=== PATIENT | female | born 2000 | race Caucasian/White ===

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

== ENCOUNTER 2018-01-28 22:22 | Emergency (ER) | payer OTHER ==
[2018-01-28] MEDS ORDERED: Sodium Chloride 0.9% 1000 ML 1,000 ML IV STA (22:59)
[2018-01-28] MEDS ORDERED: Reglan 10 MG/2 ML IV ONE (23:05)
[2018-01-28] MEDS ORDERED: Reglan 10 MG/2 ML ONE (23:08)
[2018-01-28] MEDS ORDERED: Sodium Chloride 0.9% 1000 ML 1,000 ML ONE (23:09)
--- NOTE | 2018-01-28 23:11 | ERPHSYRPT ---
- History of Present Illness Time Seen by Provider: 01/28/18 22:50 Source: patient Exam Limitations: no limitations Patient Subjective Stated Complaint: vomiting "16 times since 1 o'clock." Triage Nursing Assessment: pt is alert and oriented. pt is ambulatory. pt skin is pink, warm and elastic. mucous membranes are pink and moist. pt is c/o dizziness and a slight headache. bowel sounds present x4. pt lung sounds clear. Physician History: Pt has been vomiting since yesterday, she is about 7 weeks , denies abdominal or pelvic pain, no vaginal bleeding, discharge, no urinary complaints , diarrhea or fever. She has a six months old child, denies . She had a OB US on 01/19/18, reporting 6 weeks 4 days normal IU . Timing/Duration: yesterday Activites at Onset: none Quality: other (denies) Pain Radiation: none Severity of Pain-Max: none Severity of Pain-Current: none Prior abdominal problems: none Modifying Factors: Improves With: nothing Associated Symptoms: nausea, vomiting Allergies/Adverse Reactions: paroxetine [From Paxil] Allergy (Severe, Verified 07/25/17 09:44) "extreme anger" cephalexin monohydrate [From Keflex] Allergy (Intermediate, Verified 07/25/17 09 :44) Hives guaifenesin [From Mucinex] Allergy (Intermediate, Verified 07/25/17 09:44) Hives lisdexamfetamine [From Vyvanse] Adverse Reaction (Unknown, Verified 07/25/17 09: 44) "irritability and constantly clearing throat until it would swell" methylphenidate [From Concerta] Adverse Reaction (Unknown, Verified 07/25/17 09: 44) "irritability and constantly clearing throat until it would swell" Hx Tetanus, Diphtheria Vaccination/Date Given: Yes Hx Influenza Vaccination/Date Given: No Hx Pneumococcal Vaccination/Date Given: No - Review of Systems Constitutional: No Symptoms Abdominal/Gastrointestinal: Nausea, Vomiting Neurological: Headache All Other Systems: Reviewed and Negative - Past Medical History Pertinent Past Medical History: Yes Neurological History: Other ENT History: No Pertinent History Cardiac History: No Pertinent History Respiratory History: No Pertinent History Endocrine Medical History: No Pertinent History Musculoskeletal History: No Pertinent History GI Medical History: No Pertinent History History: No Pertinent History Psycho-Social History: Anxiety, Depression, Panic Disorder Female Reproductive Disorders: No Pertinent History 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, 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 - Past Surgical History Past Surgical History: Yes Neuro Surgical History: No Pertinent History Cardiac: No Pertinent History Respiratory: No Pertinent History Gastrointestinal: No Pertinent History Genitourinary: No Pertinent History Musculoskeletal: No Pertinent History Female Surgical History: Other Other Surgical History: vaginal laproscopy - Social History Smoking Status: Former smoker How long have you smoked: 2yrs Exposure to second hand smoke: Yes Drug Use: none Patient Lives Alone: No - Female History Hx Last Menstrual Period: 11/20/17 Hx Now: Yes Expected Date of Delivery: 09/10/18 - Nursing Vital Signs Nursing Vital Signs: Initial Vital Signs Temperature 97.9 F 01/28/18 22:22 Pulse Rate 83 01/28/18 22:22 Respiratory Rate 16 01/28/18 22:22 Blood Pressure 136/75 01/28/18 22:22 O2 Sat by Pulse Oximetry 98 01/28/18 22:22 Pain Scale Pain Intensity 6 - Physical Exam General Appearance: no apparent distress Eye Exam: eyes nml inspection Ears, Nose, Throat Exam: normal ENT inspection Neck Exam: normal inspection, non-tender, supple Respiratory Exam: normal breath sounds, chest tenderness, lungs clear, airway intact Cardiovascular Exam: regular rate/rhythm, normal heart sounds, normal peripheral pulses, No murmur Gastrointestinal/Abdomen Exam: soft, normal bowel sounds, No tenderness, No distention, No mass, No guarding Pelvic Exam: not done Back Exam: normal inspection, No CVA tenderness Extremity Exam: normal inspection Neurologic Exam: alert, oriented x 3, cooperative, normal mood/affect Skin Exam: normal color, warm, dry, No rash Lymphatic Exam: No adenopathy SpO2 Interpretation: normal SpO2: 98 Oxygen Delivery: Room Air - Course Nursing assessment & vital signs reviewed: Yes Ordered Tests: Active Orders 24 hr Category Date Time Status IV Insertion STAT Care 01/28/18 22:38 Active NPO (ED) STAT Care 01/28/18 22:59 Active CBC W DIFF Stat Lab 01/28/18 22:30 Completed CMP Stat Lab 01/28/18 22:30 Completed CULTURE,URINE Stat Lab 01/28/18 22:30 Received HCG, Quantitative (Inhouse) Stat Lab 01/28/18 22:30 Received LIPASE Stat Lab 01/28/18 22:30 Completed UA W/ MICROSCOPIC Stat Lab 01/28/18 22:30 Completed Urine Triage Profile Stat Lab 01/28/18 22:30 Completed Medication Summary Discontinued Medications Generic Name Dose Route Start Last Admin Trade Name Marcelo PRN Reason Stop Dose Admin Sodium Chloride 1,000 mls @ 999 mls/hr 01/28/18 22:59 01/28/18 23:11 Sodium Chloride 0.9% 1000 Ml IV 01/28/18 23:59 999 mls/hr .Q1H1M STA Administration Sodium Chloride Confirm 01/28/18 23:09 Sodium Chloride 0.9% 1000 Ml Administered 01/28/18 23:10 Dose 1,000 mls @ ud .ROUTE .STK-MED ONE Metoclopramide HCl 10 mg 01/28/18 23:05 01/28/18 23:11 Reglan 10 Mg/2 Ml IV 01/28/18 23:06 10 mg STAT ONE Administration Metoclopramide HCl Confirm 01/28/18 23:08 Reglan 10 Mg/2 Ml Administered 01/28/18 23:09 Dose 10 mg .ROUTE .STK-MED ONE Nitrofurantoin Macrocrystals 100 mg 01/29/18 01:04 01/29/18 01:08 Macrobid 100mg Capsule PO 01/29/18 01:05 100 mg STAT ONE Administration Nitrofurantoin Macrocrystals Confirm 01/29/18 01:07 Macrobid 100mg Capsule Administered 01/29/18 01:08 Dose 100 mg .ROUTE .STK-MED ONE Lab/Rad Data: Laboratory Result Diagrams 01/28/18 22:30 01/28/18 22:30 Laboratory Results 01/28/18 01/28/18 01/28/18 Range/Units 22:30 22:30 22:30 WBC (4.0-10.5) K/mm3 RBC (4.1-5.4) M/mm3 Hgb (12.0-16.0) gm/dl Hct (35-47) % MCV (78-100) fl MCH (26-32) pg MCHC (32-36) g/dl RDW (11.5-14.0) % Plt Count (150-450) K/mm3 MPV (6-9.5) fl Gran % (36.0-66.0) % Eos # (Auto) (0-0.5) Absolute Lymphs (auto) (1.0-4.6) Absolute Monos (auto) (0.0-1.3) Lymphocytes % (24.0-44.0) % Monocytes % (0.0-12.0) % Eosinophils % (0.00-5.0) % Basophils % (0.0-0.4) % Absolute Granulocytes (1.4-6.9) Basophils # (0-0.4) Sodium 139 (137-145) mmol/L Potassium 3.5 (3.5-5.1) mmol/L Chloride 103 (98-107) mmol/L Carbon Dioxide 23 (22-30) mmol/L Anion Gap 16.3 H (5-15) MEQ/L BUN 10 (7-17) mg/dL Creatinine 0.59 (0.52-1.04) mg/dL Estimated GFR > 60.0 ML/MIN Glucose 82 (74-106) mg/dL Calcium 9.7 (8.4-10.2) mg/dL Total Bilirubin 0.70 (0.2-1.3) mg/dL AST 18 (14-36) U/L ALT 15 (0-35) U/L Alkaline Phosphatase 50 (38-126) U/L Serum Total Protein 7.3 (6.3-8.2) g/dL Albumin 4.6 (3.5-5.0) g/dL Lipase 124 (23-300) U/L Ur Collection Type VOID Urine Color YELLOW (YELLOW) Urine Appearance CLOUDY (CLEAR) Urine pH 5.0 (5-6) Ur Specific [place] 1.025 (1.005-1.025) Urine Protein NEGATIVE (Negative) Urine Ketones SMALL (NEGATIVE) Urine Blood 50 (0-5) Remberto/ul Urine Nitrite NEGATIVE (NEGATIVE) Urine Bilirubin NEGATIVE (NEGATIVE) Urine Urobilinogen NORMAL (0-1) mg/dL Ur Leukocyte Esterase 1+ (NEGATIVE) Urine Microscopic RBC 10-15 (0-2) /HPF Urine Microscopic WBC 10-15 (0-5) /HPF Ur Epithelial Cells MANY (FEW) /HPF Urine Bacteria MANY (NEGATIVE) /HPF Urine Mucus MANY (NEGATIVE) /HPF Urine Culture Reflexed YES (NO) Urine Glucose 250 (NEGATIVE) mg/dL Urine Opiates Level NEGATIVE (NEGATIVE) Ur Methadone NEGATIVE (NEGATIVE) Urine Barbiturates NEGATIVE (NEGATIVE) Ur Phencyclidine (PCP) NEGATIVE (NEGATIVE) Urine Amphetamine NEGATIVE (NEGATIVE) U Benzodiazepine Level NEGATIVE (NEGATIVE) Urine Cocaine NEGATIVE (NEGATIVE) Urine Marijuana (THC) NEGATIVE (NEGATIVE) Specimen Received 01/28/18 2330 01/28/18 Range/Units 22:30 WBC 9.3 (4.0-10.5) K/mm3 RBC 4.53 (4.1-5.4) M/mm3 Hgb 14.0 (12.0-16.0) gm/dl Hct 40.6 (35-47) % MCV 89.6 (78-100) fl MCH 30.9 (26-32) pg MCHC 34.5 (32-36) g/dl RDW 12.7 (11.5-14.0) % Plt Count 234 (150-450) K/mm3 MPV 10.6 H (6-9.5) fl Gran % 61.8 (36.0-66.0) % Eos # (Auto) 0.02 (0-0.5) Absolute Lymphs (auto) 2.74 (1.0-4.6) Absolute Monos (auto) 0.77 (0.0-1.3) Lymphocytes % 29.6 (24.0-44.0) % Monocytes % 8.3 (0.0-12.0) % Eosinophils % 0.2 (0.00-5.0) % Basophils % 0.1 (0.0-0.4) % Absolute Granulocytes 5.73 (1.4-6.9) Basophils # 0.01 (0-0.4) Sodium (137-145) mmol/L Potassium (3.5-5.1) mmol/L Chloride (98-107) mmol/L Carbon Dioxide (22-30) mmol/L Anion Gap (5-15) MEQ/L BUN (7-17) mg/dL Creatinine (0.52-1.04) mg/dL Estimated GFR ML/MIN Glucose (74-106) mg/dL Calcium (8.4-10.2) mg/dL Total Bilirubin (0.2-1.3) mg/dL AST (14-36) U/L ALT (0-35) U/L Alkaline Phosphatase (38-126) U/L Serum Total Protein (6.3-8.2) g/dL Albumin (3.5-5.0) g/dL Lipase (23-300) U/L Ur Collection Type Urine Color (YELLOW) Urine Appearance (CLEAR) Urine pH (5-6) Ur Specific Be[place] (1.005-1.025) Urine Protein (Negative) Urine Ketones (NEGATIVE) Urine Blood (0-5) Remberto/ul Urine Nitrite (NEGATIVE) Urine Bilirubin (NEGATIVE) Urine Urobilinogen (0-1) mg/dL Ur Leukocyte Esterase (NEGATIVE) Urine Microscopic RBC (0-2) /HPF Urine Microscopic WBC (0-5) /HPF Ur Epithelial Cells (FEW) /HPF Urine Bacteria (NEGATIVE) /HPF Urine Mucus (NEGATIVE) /HPF Urine Culture Reflexed (NO) Urine Glucose (NEGATIVE) mg/dL Urine Opiates Level (NEGATIVE) Ur Methadone (NEGATIVE) Urine Barbiturates (NEGATIVE) Ur Phencyclidine (PCP) (NEGATIVE) Urine Amphetamine (NEGATIVE) U Benzodiazepine Level (NEGATIVE) Urine Cocaine (NEGATIVE) Urine Marijuana (THC) (NEGATIVE) Specimen Received - Progress Progress: improved Air Movement: good Progress Note: 01/29/18 01:14 Pt states, feels much better, nausea resolved, denies any pain, afebrile, and stable. 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 Blood Culture(s) Obtained: No Antibiotics given: Yes Counseled pt/family regarding: lab results, diagnosis, need for follow-up - Departure Time of Disposition: 01:16 Departure Disposition: Home Clinical Impression: Hyperemesis gravidarum UTI (urinary tract infection) Qualifiers: Urinary tract infection type: site unspecified Hematuria presence: without hematuria Qualified Code(s): N39.0 - Urinary tract infection, site not specified Condition: Stable Critical Care Time: No Referrals: LEEANN SOSA MD [Primary Care Provider] - Instructions: Vomiting -- Adult, Urinary Tract Infection, Adult (DC), Hyperemesis Gravidarum Additional Instructions: Rest x 2-3 days, drink plenty of fluids, return if severe pain, vomiting, bleeding, fever> 102 F! Prescriptions: Metoclopramide HCl 10 mg [Reglan 10 MG] 10 mg PO TID PRN #10 tablet PRN Reason: Nausea/Vomiting Nitrofurantoin Monohyd/M-Cryst [Macrobid 100 mg Capsule] 100 mg PO BID 7 Days # 14 capsule
[2018-01-28 23:50] LABS: BASOPHIL % 0.1 % (0.0-0.4); Basophil (Absolute #) 0.01 (0-0.4); Eosinophil % 0.2 % (0.00-5.0); Eosinophil (Absolute #) 0.02 (0-0.5); Granulocyte Absolute (ANC) 5.73 (1.4-6.9); Granulocytes % 61.8 % (36.0-66.0); Hematocrit 40.6 % (35-47); Lymphocyte (Absolute #) 2.74 (1.0-4.6); Lymphocytes % 29.6 % (24.0-44.0); Mean Cell Volume 89.6 fl (78-100); Mean Corpuscular Hemoglobin 30.9 pg (26-32); Mean Corpuscular Hgb Concent. 34.5 g/dl (32-36); Mean Platelet Volume 10.6 fl (6-9.5); Monocyte (Absolute #) 0.77 (0.0-1.3); Monocytes % 8.3 % (0.0-12.0); Platelet Count 234 K/mm3 (150-450); Red Blood Count 4.53 M/mm3 (4.1-5.4); Red Cell Distribution Width 12.7 % (11.5-14.0); White Blood Count 9.3 K/mm3 (4.0-10.5)
[2018-01-28 23:55] LABS: ALBUMIN 4.6 g/dL (3.5-5.0); ALKALINE PHOSPHATASE 50 U/L (38-126); ANION GAP 16.3 MEQ/L (5-15); BLOOD UREA NITROGEN 10 mg/dL (7-17); CHLORIDE 103 mmol/L (98-107); Calcium 9.7 mg/dL (8.4-10.2); Carbon Dioxide 23 mmol/L (22-30); Creatinine 1 0.59 mg/dL (0.52-1.04); Glucose 82 mg/dL (74-106); LIPASE 124 U/L (23-300); Potassium 3.5 mmol/L (3.5-5.1); SGOT/AST 18 U/L (14-36); SGPT/ALT 15 U/L (0-35); SODIUM 139 mmol/L (137-145); Total Protein 7.3 g/dL (6.3-8.2)
[2018-01-29 00:11] LABS: Appearance CLOUDY (CLEAR); Bilirubin NEGATIVE (NEGATIVE); Blood 50 Ery/ul (0-5); Glucose 250 mg/dL (NEGATIVE); Ketones SMALL (NEGATIVE); Leukocyte Esterase 1+ (NEGATIVE); Nitrite NEGATIVE (NEGATIVE); Protein,Urine Dip NEGATIVE (Negative); Specific Gravity 1.025 (1.005-1.025); Urobilinogen NORMAL mg/dL (0-1)
[2018-01-29 00:12] LABS: Amphetamine,Urine NEGATIVE (NEGATIVE); Bacteria MANY /HPF (NEGATIVE); Barbiturate,Urine NEGATIVE (NEGATIVE); Benzodiazepine,Urine NEGATIVE (NEGATIVE); Cocaine,Urine NEGATIVE (NEGATIVE); Epithelial Cells MANY /HPF (FEW); Methadone,Urine NEGATIVE (NEGATIVE); Mucus MANY /HPF (NEGATIVE); Opiate,Urine NEGATIVE (NEGATIVE); PCP,Urine NEGATIVE (NEGATIVE); THC,Urine NEGATIVE (NEGATIVE)
[2018-01-29] MEDS ORDERED: Macrobid 100MG Capsule PO ONE (01:04)
[2018-01-29] MEDS ORDERED: Macrobid 100MG Capsule ONE (01:07)
[2018-01-29 01:15] VITALS: BP 121/66; PULSE 70
[2018-01-29 01:20] VITALS: O2SAT 98
== END 2018-01-29 01:34 | disposition home or self-care (01) ==
LOC: ED 22:22
DX: O21.0 Mild hyperemesis gravidarum (principal); Z3A.01 Less than 8 weeks gestation of pregnancy; O23.41 Unspecified infection of urinary tract in pregnancy, first trimester
CPT/HCPCS: 36000; 36415; 80053; 80307; 81000; 81002; 83690; 84702; 85025; 87086; 96360; 96374; 99284; A9270-GY

== ENCOUNTER 2018-04-05 19:06 | Emergency (ER) | payer OTHER ==
[2018-04-05 19:29] VITALS: PULSE 100; O2SAT 96
[2018-04-05 20:13] LABS: Appearance CLEAR (CLEAR); Bilirubin NEGATIVE (NEGATIVE); Glucose NEGATIVE (NEGATIVE); Ketones NEGATIVE (NEGATIVE); Leukocyte Esterase 2+ (NEGATIVE); Nitrite NEGATIVE (NEGATIVE); Protein,Urine Dip NEGATIVE (Negative); Specific Gravity 1.005 (1.005-1.025); Urobilinogen NORMAL mg/dL (0-1)
[2018-04-05 20:14] LABS: Blood TRACE NON-HEM Ery/ul (0-5)
[2018-04-05 20:15] LABS: Bacteria FEW /HPF (NEGATIVE)
[2018-04-05 20:31] LABS: BASOPHIL % 0.2 % (0.0-0.4); Basophil (Absolute #) 0.02 (0-0.4); Eosinophil % 0.9 % (0.00-5.0); Eosinophil (Absolute #) 0.07 (0-0.5); Granulocyte Absolute (ANC) 4.83 (1.4-6.9); Granulocytes % 59.6 % (36.0-66.0); Hematocrit 36.8 % (35-47); Hemoglobin 12.5 gm/dl (12.0-16.0); Lymphocyte (Absolute #) 2.46 (1.0-4.6); Lymphocytes % 30.4 % (24.0-44.0); Mean Cell Volume 92.7 fl (78-100); Mean Platelet Volume 9.5 fl (6-9.5); Monocyte (Absolute #) 0.72 (0.0-1.3); Monocytes % 8.9 % (0.0-12.0); Platelet Count 269 K/mm3 (150-450); Red Blood Count 3.97 M/mm3 (4.1-5.4); Red Cell Distribution Width 12.9 % (11.5-14.0); White Blood Count 8.1 K/mm3 (4.0-10.5)
[2018-04-05 20:35] VITALS: BP 119/78
[2018-04-05 20:54] LABS: ALBUMIN 4.5 g/dL (3.5-5.0); ALKALINE PHOSPHATASE 51 U/L (38-126); ANION GAP 14.4 MEQ/L (5-15); BLOOD UREA NITROGEN 12 mg/dL (7-17); CHLORIDE 105 mmol/L (98-107); Calcium 9.5 mg/dL (8.4-10.2); Carbon Dioxide 24 mmol/L (22-30); Glucose 61 mg/dL (74-106); Potassium 3.6 mmol/L (3.5-5.1); SGOT/AST 22 U/L (14-36); SGPT/ALT 15 U/L (0-35); SODIUM 139 mmol/L (137-145); Total Protein 7.6 g/dL (6.3-8.2)
[2018-04-05 20:58] LABS: Mean Corpuscular Hemoglobin 31.4 pg (26-32)
--- NOTE | 2018-04-05 21:42 | ERPHSYRPT ---
- History of Present Illness Time Seen by Provider: 04/05/18 19:30 Source: patient Exam Limitations: no limitations Patient Subjective Stated Complaint: pt states that she is 18 weeks and today she noticed a small amount of dark red spotting starting at 1730. she states that she had some lower abdomenal pain starting at about 1400 today. pt states that she has had some nausea and vomiting this past week. pt states that she is having painful contractions every 10-15 minutes. pt states that she did have a fever yesterday of 100 degrees. pt denies any pain or difficulty urinating. Triage Nursing Assessment: see above Physician History: 17 y/o a 1 white female who is 18 weeks presents with vaginal spotting and suprapubic cramping. pt told me she has not had an ultrasound this . she told the nurse she has. i had the nurse clarify with patient. pt told rn she has not had one for this . pt denies n/v/d. 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 fht per ob rn today in er 144. Timing/Duration: today Activites at Onset: none Quality: pressure, tightness Onset Location: suprapubic Pain Radiation: none Severity of Pain-Max: mild Severity of Pain-Current: mild Prior abdominal problems: none Sexual intercourse history: non-contributory Modifying Factors: Improves With: nothing Associated Symptoms: , No abdominal pain, No fever, No chills, No nausea , No vomiting, No urinary frequency Allergies/Adverse Reactions: paroxetine [From Paxil] Allergy (Severe, Verified 07/25/17 09:44) "extreme anger" cephalexin monohydrate [From Keflex] Allergy (Intermediate, Verified 07/25/17 09 :44) Hives guaifenesin [From Mucinex] Allergy (Intermediate, Verified 07/25/17 09:44) Hives lisdexamfetamine [From Vyvanse] Adverse Reaction (Unknown, Verified 07/25/17 09: 44) "irritability and constantly clearing throat until it would swell" methylphenidate [From Concerta] Adverse Reaction (Unknown, Verified 07/25/17 09: 44) "irritability and constantly clearing throat until it would swell" Hx Tetanus, Diphtheria Vaccination/Date Given: Yes Hx Influenza Vaccination/Date Given: No Hx Pneumococcal Vaccination/Date Given: No - Review of Systems Constitutional: No Symptoms, No Fever, No Chills Eyes: No Symptoms Ears, Nose, & Throat: No Symptoms, No Ear Pain Respiratory: No Symptoms, No Cough, No Dyspnea, No Stridor, No Wheezing Cardiac: No Symptoms, No Chest Pain Abdominal/Gastrointestinal: No Symptoms, Abdominal Pain (suprapubic cramping), Nausea, Vomiting, Diarrhea Genitourinary Symptoms: No Symptoms, No Dysuria, No Frequency, No Hematuria Musculoskeletal: No Symptoms Skin: No Symptoms Neurological: No Symptoms Psychological: No Symptoms Endocrine: No Symptoms Hematologic/Lymphatic: No Symptoms Immunological/Allergic: No Symptoms All Other Systems: Reviewed and Negative - Past Medical History Pertinent Past Medical History: Yes Neurological History: Other ENT History: No Pertinent History Cardiac History: No Pertinent History Respiratory History: No Pertinent History Endocrine Medical History: No Pertinent History Musculoskeletal History: No Pertinent History GI Medical History: No Pertinent History History: No Pertinent History Psycho-Social History: Anxiety, Depression, Panic Disorder Female Reproductive Disorders: No Pertinent History Other Medical History: 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, 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 - Past Surgical History Past Surgical History: Yes Neuro Surgical History: No Pertinent History Cardiac: No Pertinent History Respiratory: No Pertinent History Gastrointestinal: No Pertinent History Genitourinary: No Pertinent History Musculoskeletal: No Pertinent History Female Surgical History: Other Other Surgical History: vaginal laproscopy - Social History Smoking Status: Former smoker How long have you smoked: 2yrs Exposure to second hand smoke: Yes Drug Use: none Patient Lives Alone: No - Female History Hx Now: Yes Expected Date of Delivery: 09/09/18 - Nursing Vital Signs Nursing Vital Signs: Initial Vital Signs Pulse Rate 100 H 04/05/18 19:07 Respiratory Rate 18 04/05/18 19:07 Blood Pressure 134/69 04/05/18 19:07 O2 Sat by Pulse Oximetry 96 04/05/18 19:07 Pain Scale Pain Intensity 7 - Physical Exam General Appearance: no apparent distress, alert, anxiety Eye Exam: PERRL/EOMI, eyes nml inspection Ears, Nose, Throat Exam: normal ENT inspection Neck Exam: normal inspection, non-tender, supple, full range of motion Respiratory Exam: normal breath sounds, lungs clear, airway intact, No chest tenderness, No respiratory distress Cardiovascular Exam: regular rate/rhythm, normal heart sounds, normal peripheral pulses Pelvic Exam: not done Rectal Exam: deferred Extremity Exam: normal inspection Neurologic Exam: alert, oriented x 3, cooperative, ceo and president II-XII nml as tested, normal mood/affect, nml cerebellar function Skin Exam: normal color, warm, dry Lymphatic Exam: No adenopathy SpO2 Interpretation: normal SpO2: 96 Oxygen Delivery: Room Air - Course Nursing assessment & vital signs reviewed: Yes Ordered Tests: Active Orders 24 hr Category Date Time Status OB >14 WKS 1st GESTATION [US] Stat Exams 04/05/18 21:28 Taken CBC W DIFF Stat Lab 04/05/18 19:53 Completed CMP Stat Lab 04/05/18 19:53 Completed CULTURE,URINE Stat Lab 04/05/18 20:00 Received HCG, Quantitative (Inhouse) Stat Lab 04/05/18 19:54 Ordered UA W/ MICROSCOPIC Stat Lab 04/05/18 20:00 Completed Lab/Rad Data: Laboratory Result Diagrams 04/05/18 19:53 04/05/18 19:53 Laboratory Results 04/05/18 04/05/18 04/05/18 Range/Units 20:00 19:53 19:53 WBC 8.1 (4.0-10.5) K/mm3 RBC 3.97 L (4.1-5.4) M/mm3 Hgb 12.5 (12.0-16.0) gm/dl Hct 36.8 (35-47) % MCV 92.7 (78-100) fl MCH 31.4 (26-32) pg MCHC 34.0 (32-36) g/dl RDW 12.9 (11.5-14.0) % Plt Count 269 (150-450) K/mm3 MPV 9.5 (6-9.5) fl Gran % 59.6 (36.0-66.0) % Eos # (Auto) 0.07 (0-0.5) Absolute Lymphs (auto) 2.46 (1.0-4.6) Absolute Monos (auto) 0.72 (0.0-1.3) Lymphocytes % 30.4 (24.0-44.0) % Monocytes % 8.9 (0.0-12.0) % Eosinophils % 0.9 (0.00-5.0) % Basophils % 0.2 (0.0-0.4) % Absolute Granulocytes 4.83 (1.4-6.9) Basophils # 0.02 (0-0.4) Sodium 139 (137-145) mmol/L Potassium 3.6 (3.5-5.1) mmol/L Chloride 105 (98-107) mmol/L Carbon Dioxide 24 (22-30) mmol/L Anion Gap 14.4 (5-15) MEQ/L BUN 12 (7-17) mg/dL Creatinine 0.50 L (0.52-1.04) mg/dL Estimated GFR > 60.0 ML/MIN Glucose 61 L (74-106) mg/dL Calcium 9.5 (8.4-10.2) mg/dL Total Bilirubin 0.30 (0.2-1.3) mg/dL AST 22 (14-36) U/L ALT 15 (0-35) U/L Alkaline Phosphatase 51 (38-126) U/L Serum Total Protein 7.6 (6.3-8.2) g/dL Albumin 4.5 (3.5-5.0) g/dL Ur Collection Type VOID Urine Color LT.YELLOW (YELLOW) Urine Appearance CLEAR (CLEAR) Urine pH 7.0 (5-6) Ur Specific [place] 1.005 (1.005-1.025) Urine Protein NEGATIVE (Negative) Urine Ketones NEGATIVE (NEGATIVE) Urine Blood TRACE NON-HEM (0-5) Remberto/ul Urine Nitrite NEGATIVE (NEGATIVE) Urine Bilirubin NEGATIVE (NEGATIVE) Urine Urobilinogen NORMAL (0-1) mg/dL Ur Leukocyte Esterase 2+ (NEGATIVE) Urine Microscopic RBC 2-5 (0-2) /HPF Urine Microscopic WBC 5-10 (0-5) /HPF Urine Bacteria FEW (NEGATIVE) /HPF Urine Culture Reflexed YES (NO) Urine Glucose NEGATIVE (NEGATIVE) mg/dL Specimen Received 04/05 2000 - Progress Progress: unchanged Air Movement: fair, good Progress Note: 04/05/18 21:44 u/s tech performed ultrasound. tech informed me no abnormalities. she also told me pt had u/s reports for this 12/27, 01/26, 02/26 and now today. i confronted pt with information. she stated she did not remember. i told her it was important not to give false and misleading information to her doctors to obtain treatment or unecessary studies she desires. she was upset and wants to be discharged. Blood Culture(s) Obtained: No Antibiotics given: No Counseled pt/family regarding: lab results, diagnosis, need for follow-up, rad results - Departure Time of Disposition: 21:48 Departure Disposition: Home Clinical Impression: , Vaginal bleeding before 22 weeks gestation Condition: Stable Critical Care Time: No Referrals: LEEANN SOSA MD [Primary Care Provider] - Additional Instructions: follow up with chimney sweeper tomorrow for further management
--- NOTE | 2018-04-06 08:45 | XRAY ---
Indication: Spotting. 2-dimensional OB ultrasound performed. Comparison: February 14, 2018. Again there is a single viable intrauterine currently in oblique lie. Normal four-chamber heart with heart rate 153 BPM. Visualized kidneys unremarkable. Posterior placenta without abruption/previa. BPD measures 4.09 cm corresponding to 18 weeks 3 days. HC measures 15.09 cm corresponding to 18 weeks 1 day. AC measures 12.74 cm corresponding to 18 weeks 2 days. FL measures 2.65 cm corresponding to 18 weeks 0 days. Impression: Again single viable intrauterine with mean gestational age 18 weeks 2 days. Normal progression of . No new/acute findings. Comment: Preliminary report was given following the exam.
== END 2018-04-05 22:21 | disposition home or self-care (01) ==
LOC: ED 19:06
DX: O46.92 Antepartum hemorrhage, unspecified, second trimester (principal); Z3A.22 22 weeks gestation of pregnancy
CPT/HCPCS: 36415; 76805; 80053; 81000; 81003; 84702; 85025; 87086; 99283

== ENCOUNTER 2018-04-23 09:13 | Emergency (ER) | payer OTHER ==
--- NOTE | 2018-04-23 09:23 | ERPHSYRPT ---
- History of Present Illness Time Seen by Provider: 04/23/18 09:22 Source: patient Physician History: 17 Y/O WHITE FEMALE PRESENTS WITH MOUTH PAIN. PT STATES SHE HAS A DENTIST APPT AT 1545 TODAY. DENTIST OFFICE TOLD HER TO COME TO THE ER TO SEE IF SHE HAS AN INFECTION. MY EXPERIENCE WITH THIS PT IS SHE DOES NOT GIVE COMPLETE HONEST ANSWERS. I MADE SURE SHE WAS GOING TO BE TRUTHFUL WITH ME THIS VISIT. SHE SAID SHE WOULD LONG I WASNT GOING TO GIVE HER AN ATTITUDE. I ASKED HER WHAT HER ALLERGIES WERE AND SHE STATED I SHOULD ALREADY KNOW THAT. I TOLD PT I NEED TO KNOW IF, SINCE HER LAST VISIT THERE ARE ANY NEW ALLERGIES, SHE TOLD ME TO LOOK ON THE CHART. SHE THEN REFUSED ME EXAMINING/EVALUATING HER. Severity: mild ENT Location: dental Allergies/Adverse Reactions: paroxetine [From Paxil] Allergy (Severe, Verified 04/23/18 09:26) "extreme anger" cephalexin monohydrate [From Keflex] Allergy (Intermediate, Verified 04/23/18 09 :26) Hives guaifenesin [From Mucinex] Allergy (Intermediate, Verified 04/23/18 09:26) Hives lisdexamfetamine [From Vyvanse] Adverse Reaction (Unknown, Verified 04/23/18 09: 26) "irritability and constantly clearing throat until it would swell" methylphenidate [From Concerta] Adverse Reaction (Unknown, Verified 04/23/18 09: 26) "irritability and constantly clearing throat until it would swell" Home Medications: No Reportable Medications [No Reported Medications] 04/23/18 [History] Hx Tetanus, Diphtheria Vaccination/Date Given: Yes Hx Influenza Vaccination/Date Given: No Hx Pneumococcal Vaccination/Date Given: No - Review of Systems Constitutional: No Symptoms Eyes: No Symptoms Ears, Nose, & Throat: Other (DENTAL) Respiratory: No Symptoms Cardiac: No Symptoms Abdominal/Gastrointestinal: No Symptoms Genitourinary Symptoms: No Symptoms Musculoskeletal: No Symptoms Skin: No Symptoms Neurological: No Symptoms Psychological: No Symptoms Endocrine: No Symptoms Hematologic/Lymphatic: No Symptoms Immunological/Allergic: No Symptoms All Other Systems: Reviewed and Negative - Past Medical History Pertinent Past Medical History: Yes Neurological History: Other ENT History: No Pertinent History Cardiac History: No Pertinent History Respiratory History: No Pertinent History Endocrine Medical History: No Pertinent History Musculoskeletal History: No Pertinent History GI Medical History: No Pertinent History History: No Pertinent History Psycho-Social History: Anxiety, Depression, Panic Disorder Female Reproductive Disorders: No Pertinent History Other Medical History: 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, 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 - Past Surgical History Past Surgical History: Yes Neuro Surgical History: No Pertinent History Cardiac: No Pertinent History Respiratory: No Pertinent History Gastrointestinal: No Pertinent History Genitourinary: No Pertinent History Musculoskeletal: No Pertinent History Female Surgical History: Other Other Surgical History: vaginal laproscopy - Social History Smoking Status: Former smoker How long have you smoked: 2yrs Exposure to second hand smoke: Yes Drug Use: none Patient Lives Alone: No - Nursing Vital Signs Nursing Vital Signs: Initial Vital Signs Temperature 98.0 F 04/23/18 09:20 Pulse Rate 110 H 04/23/18 09:20 Respiratory Rate 16 04/23/18 09:20 Blood Pressure 122/65 04/23/18 09:20 O2 Sat by Pulse Oximetry 98 04/23/18 09:20 Pain Scale Pain Intensity 9 - Physical Exam General Appearance: no apparent distress - Course Nursing assessment & vital signs reviewed: Yes - Progress Progress: unchanged Progress Note: 04/23/18 09:47 PT REFUSING ME TO PERFORM AN EXAMINATION. PT IS MEDICALLY STABLE. SHE HAD A MEDICAL SCREENING EXAM AND PT DOES NOT HAVE AN EMERGENCY ISSUE. IN ADDITION, SHE HAS A DENTIST APPT IN 6 HOURS Counseled pt/family regarding: need for follow-up - Departure Time of Disposition: 09:48 Departure Disposition: Home Clinical Impression: Encounter for medical screening examination, Pain, dental Condition: Stable Critical Care Time: No Referrals: LEEANN SOSA MD [Primary Care Provider] - Additional Instructions: KEEP YOUR DENTIST APPOINTMENT AT 1545 TODAY.
[2018-04-23 10:07] VITALS: BP 129/91; PULSE 105; O2SAT 95
== END 2018-04-23 09:50 | disposition home or self-care (01) ==
LOC: ED 09:13
DX: Z13.89 Encounter for screening for other disorder (principal); K08.89 Other specified disorders of teeth and supporting structures
CPT/HCPCS: 99283

== ENCOUNTER 2018-05-23 12:42 | Observation (INO) | payer OTHER ==
[2018-05-23 13:57] LABS: Amphetamine,Urine NEGATIVE (NEGATIVE); Barbiturate,Urine NEGATIVE (NEGATIVE); Benzodiazepine,Urine NEGATIVE (NEGATIVE); Cocaine,Urine NEGATIVE (NEGATIVE); Methadone,Urine NEGATIVE (NEGATIVE); Opiate,Urine NEGATIVE (NEGATIVE); PCP,Urine NEGATIVE (NEGATIVE); THC,Urine NEGATIVE (NEGATIVE)
[2018-05-23 14:31] LABS: Appearance CLEAR (CLEAR); Bacteria FEW /HPF (NEGATIVE); Bilirubin NEGATIVE (NEGATIVE); Blood NEGATIVE Ery/ul (0-5); Epithelial Cells MANY /HPF (FEW); Glucose NEGATIVE (NEGATIVE); Ketones NEGATIVE (NEGATIVE); Leukocyte Esterase 1+ (NEGATIVE); Nitrite NEGATIVE (NEGATIVE); Protein,Urine Dip NEGATIVE (Negative); Urobilinogen NORMAL mg/dL (0-1)
--- NOTE | 2018-05-23 15:01 | XRAY ---
Indication: well-being. Two-dimensional OB ultrasound performed. Comparison: April 11, 2018. Again there is a single viable intrauterine currently in cephalic presentation. Normal four-chamber heart with heart rate 150 BPM. Normal three-vessel cord and cord insertion. Visualized head, spine, stomach, kidneys, and bladder are unremarkable. Posterior placenta without abruption/previa. BPD measures 6.35 cm corresponding to 25 weeks 5 days. HC measures 22.97 cm corresponding to 25 weeks 0 day. AC measures 19.06 cm corresponding to 23 weeks 6 days. FL measures 4.47 cm corresponding to 24 weeks 5 days. TONJA is 11.4 cm. Impression: Again single viable intrauterine with mean gestational age 24 weeks 6 days. Normal progression of . No new/acute findings.
[2018-05-23 15:33] VITALS: BP 109/52; PULSE 73
== END 2018-05-23 15:14 | disposition home or self-care (01) ==
LOC: OB 12:42
PROVIDERS: ADMIT Family Medicine; ATTEND Family Medicine
DX: Z34.82 Encounter for supervision of other normal pregnancy, second trimester (principal)
CPT/HCPCS: 76805; 80307; 81000; 83986; G0378

== ENCOUNTER 2018-06-27 14:34 | Observation (INO) | payer OTHER ==
[2018-06-27] MEDS ORDERED: Lactated Ringers 1,000 ML IV ONE (15:27)
[2018-06-27] MEDS ORDERED: Phenergan 25 MG INJ IV PRN (15:29)
[2018-06-27] MEDS ORDERED: Lactated Ringers 1,000 ML IV SCH (15:30)
[2018-06-27 15:47] LABS: BASOPHIL % 0.1 % (0.0-0.4); Basophil (Absolute #) 0.01 (0-0.4); Eosinophil (Absolute #) 0 (0-0.5); Hemoglobin 13.2 gm/dl (12.0-16.0); Lymphocyte (Absolute #) 0.75 (1.0-4.6); Mean Cell Volume 92.6 fl (78-100); Mean Corpuscular Hemoglobin 30.6 pg (26-32); Mean Platelet Volume 9.7 fl (6-9.5); Monocyte (Absolute #) 0.37 (0.0-1.3); Monocytes % 3.9 % (0.0-12.0); Platelet Count 250 K/mm3 (150-450); Red Blood Count 4.32 M/mm3 (4.1-5.4); Red Cell Distribution Width 12.7 % (11.5-14.0); White Blood Count 9.4 K/mm3 (4.0-10.5)
[2018-06-27 15:57] LABS: Appearance SLIGHTLY CLOUDY (CLEAR); Bilirubin NEGATIVE (NEGATIVE); Blood NEGATIVE Ery/ul (0-5); Glucose NEGATIVE (NEGATIVE); Ketones MODERATE (NEGATIVE); Leukocyte Esterase TRACE (NEGATIVE); Nitrite NEGATIVE (NEGATIVE); Protein,Urine Dip 30 (Negative); Specific Gravity 1.035 (1.005-1.025); Urobilinogen NEGATIVE mg/dL (0-1)
[2018-06-27 16:05] LABS: Amphetamine,Urine NEGATIVE (NEGATIVE); Barbiturate,Urine NEGATIVE (NEGATIVE); Benzodiazepine,Urine NEGATIVE (NEGATIVE); Cocaine,Urine NEGATIVE (NEGATIVE); Methadone,Urine NEGATIVE (NEGATIVE); Opiate,Urine NEGATIVE (NEGATIVE); PCP,Urine NEGATIVE (NEGATIVE); THC,Urine NEGATIVE (NEGATIVE)
[2018-06-27 16:14] LABS: ALKALINE PHOSPHATASE 102 U/L (38-126); ANION GAP 14.4 MEQ/L (5-15); BLOOD UREA NITROGEN 15 mg/dL (7-17); CHLORIDE 108 mmol/L (98-107); Calcium 8.6 mg/dL (8.4-10.2); Carbon Dioxide 19 mmol/L (22-30); Creatinine 1 0.46 mg/dL (0.52-1.04); Glucose 88 mg/dL (74-106); Potassium 3.7 mmol/L (3.5-5.1); SGOT/AST 27 U/L (14-36); SGPT/ALT 16 U/L (0-35); SODIUM 137 mmol/L (137-145); Total Protein 7.2 g/dL (6.3-8.2)
[2018-06-27] MEDS ORDERED: Zofran 4 MG/2 ML VIAL IV PRN (17:30)
[2018-06-27] MEDS ORDERED: TYLENOL 325 MG PO PRN (19:54)
[2018-06-27] MEDS ORDERED: TYLENOL 325 MG ONE (19:58)
[2018-06-27 20:40] VITALS: BP 117/60; PULSE 94
== END 2018-06-27 21:35 | disposition home or self-care (01) ==
LOC: OB 14:34
PROVIDERS: ADMIT Family Medicine; ATTEND Family Medicine
DX: Z34.83 Encounter for supervision of other normal pregnancy, third trimester (principal)
CPT/HCPCS: 36415; 80053; 80307; 81001; 85025; 87086; G0378; J2550; A9270-GY

== ENCOUNTER 2018-08-06 10:49 | Observation (INO) | payer OTHER ==
[2018-08-06 11:55] VITALS: PULSE 99
[2018-08-06 12:17] VITALS: BP 104/60
[2018-08-06 13:58] LABS: Amphetamine,Urine NEGATIVE (NEGATIVE); Barbiturate,Urine NEGATIVE (NEGATIVE); Benzodiazepine,Urine NEGATIVE (NEGATIVE); Cocaine,Urine NEGATIVE (NEGATIVE); Methadone,Urine NEGATIVE (NEGATIVE); Opiate,Urine NEGATIVE (NEGATIVE); PCP,Urine NEGATIVE (NEGATIVE); THC,Urine NEGATIVE (NEGATIVE)
--- NOTE | 2018-08-06 14:33 | XRAY ---
Exam: OB ultrasound greater than 14 weeks from 08/06/2018. Comparison: OB ultrasound greater than 14 weeks from 05/23/2018. Indication: Late third trimester gestation (given a 36 weeks, 1 day) with onset of vaginal bleeding today. Findings: A single live intrauterine fetus is seen in the cephalic lie with the spine anterior with respect to the mother. Both cardiac activity and body movement were identified. The heart rate measured 135 bpm. The placenta is grade 3 and posterior. The amniotic fluid index measured 10.53 cm which is within normal limits for this stage of . Measurements of the biparietal diameter, head circumference, abdominal circumference, and femur length suggest an average composite gestational age by size criteria of 35 weeks 0 days, plus or -2 weeks 3 days. This is only about 4 days behind that anticipated by the prior exam of 05/23/2018 by size criteria. The given due date by dates is 09/02/2018. Estimated due date based on today's size measurements is 09/10/2018, which is only 4 days behind that suggested by the size measurements from 05/23/2018 (09/06/2018). Estimated weight is 2484 g plus or -372.66 g (5 lbs. 8 oz.+ or -13 ounces), placing the fetus in the 16.0 percentile. The size ratios are all within normal limits. Incidentally, there appears to be bilateral hydronephrosis with the renal pelvic diameter on the right measuring 10.2 mm and on the left, 9.7 mm. Renal pelvic diameter of 7 mm or greater in the third trimester is considered abnormal. Survey of the intracranial contents is quite limited due to the low position of the head within the maternal pelvis. A four-chamber heart is seen. The diaphragm, stomach, and urinary bladder appear unremarkable. A three-vessel umbilical cord is identified. The umbilical cord insertion site on the fetus is not well seen, likely due to the position. Impression: 1. 35 week, 0 day single live intrauterine fetus in cephalic lie with spine anterior. There has been reasonable interval growth as compared to 05/23/2018, although today's measurements are about 4 days behind that anticipated by the ultrasound exam of 05/23/2018. 2. The placenta is posterior. The lower margin of the placenta is not well seen due to the head dominating the lower pelvis. 3. Normal amount of amniotic fluid is seen with an amniotic fluid index of 10.53 cm. 4. Bilateral hydronephrosis is seen, as discussed above. 5. No other gross abnormality is seen.
== END 2018-08-06 14:35 | disposition home or self-care (01) ==
LOC: MED SURG 10:49
PROVIDERS: ADMIT Family Medicine; ATTEND Family Medicine
DX: Z34.83 Encounter for supervision of other normal pregnancy, third trimester (principal)
CPT/HCPCS: 76805; 80307; G0378

== ENCOUNTER 2018-08-21 04:43 | Observation (INO) | payer OTHER ==
[2018-08-21 05:27] LABS: Amphetamine,Urine NEGATIVE (NEGATIVE); Barbiturate,Urine NEGATIVE (NEGATIVE); Benzodiazepine,Urine NEGATIVE (NEGATIVE); Cocaine,Urine NEGATIVE (NEGATIVE); Methadone,Urine NEGATIVE (NEGATIVE); Opiate,Urine NEGATIVE (NEGATIVE); PCP,Urine NEGATIVE (NEGATIVE); THC,Urine NEGATIVE (NEGATIVE)
[2018-08-21 05:31] LABS: Appearance SLIGHTLY CLOUDY (CLEAR); Bilirubin NEGATIVE (NEGATIVE); Blood SMALL Ery/ul (0-5); Glucose NEGATIVE (NEGATIVE); Ketones SMALL (NEGATIVE); Leukocyte Esterase TRACE (NEGATIVE); Nitrite NEGATIVE (NEGATIVE); Protein,Urine Dip 30 (Negative); Specific Gravity 1.029 (1.005-1.025); Urobilinogen 2 mg/dL (0-1)
[2018-08-21] MEDS: TYLENOL EXTRA STRENGTH 500 MG PO PRN ×2 (05:40→10:28)
[2018-08-21] MEDS ORDERED: Lactated Ringers 1,000 ML IV ONE (06:18)
[2018-08-21] MEDS ORDERED: Lactated Ringers 1,000 ML IV SCH (06:30)
[2018-08-21] MEDS ORDERED: Augmentin 875-125 Tablet PO SCH (10:00)
[2018-08-21 10:57] VITALS: BP 101/55; PULSE 89
== END 2018-08-21 10:32 | disposition home or self-care (01) ==
LOC: OB 04:43
PROVIDERS: ADMIT Family Medicine; ATTEND Family Medicine
DX: Z34.83 Encounter for supervision of other normal pregnancy, third trimester (principal)
CPT/HCPCS: 80307; 81001; 87086; G0378; A9270-GY

== ENCOUNTER 2018-08-26 16:56 | Inpatient (IN) | payer OTHER ==
[2018-08-26] MEDS ORDERED: Cervidil 10 MG VAG SCH (18:00)
[2018-08-26] MEDS ORDERED: BRETHINE 1 MG/ML SQ PRN (18:09)
[2018-08-26] MEDS ORDERED: XYLOCAINE 1% HCL 20 ML MDV IJ PRN (18:12)
[2018-08-26] MEDS ORDERED: PITOCIN 30 UNITS/ LR 500 ML 500 ML IV SCH (18:30)
[2018-08-26 18:38] LABS: Granulocyte Absolute (ANC) 3.98 (1.4-6.9); Hematocrit 36.1 % (35-47); Hemoglobin 11.6 gm/dl (12.0-16.0); Mean Cell Volume 89.8 fl (78-100); Mean Corpuscular Hgb Concent. 32.1 g/dl (32-36); Platelet Count 195 K/mm3 (150-450); Red Blood Count 4.02 M/mm3 (4.1-5.4); Red Cell Distribution Width 13.9 % (11.5-14.0); White Blood Count 7.4 K/mm3 (4.0-10.5)
[2018-08-26 18:41] LABS: Mean Corpuscular Hemoglobin 28.8 pg (26-32)
[2018-08-26 18:53] LABS: Amphetamine,Urine NEGATIVE (NEGATIVE); Barbiturate,Urine NEGATIVE (NEGATIVE); Benzodiazepine,Urine NEGATIVE (NEGATIVE); Cocaine,Urine NEGATIVE (NEGATIVE); Methadone,Urine NEGATIVE (NEGATIVE); Opiate,Urine NEGATIVE (NEGATIVE); PCP,Urine NEGATIVE (NEGATIVE); THC,Urine NEGATIVE (NEGATIVE)
[2018-08-26 19:32] LABS: ATYPICAL LYMPHS 10 %; BAND 6 % (0.0-2.0); Lymphocytes 33 % (24-44); Monocyte 2 % (0.0-12.0); Neutrophils 49 % (36.0-66.0); Platelet Estimate NORMAL (NORMAL); Total Cells Counted 100
[2018-08-26] MEDS ORDERED: STADOL 2 MG IV ONE (20:09)
[2018-08-26] MEDS ORDERED: STADOL 2 MG ONE (20:11)
[2018-08-26] MEDS: Lactated Ringers 1,000 ML IV SCH (20:17)
[2018-08-26] MEDS ORDERED: Lactated Ringers 1,000 ML IV ONE (22:21)
[2018-08-26] MEDS ORDERED: OB EPIDURAL NAROPIN/SUFENTANIL IN NACL EPIDURAL PRN (22:21)
[2018-08-26] MEDS ORDERED: Ephedrine Sulfate 50 MG/ML IV PRN (22:21)
[2018-08-27 00:32] LABS: Appearance CLEAR (CLEAR); Bilirubin NEGATIVE (NEGATIVE); Blood NEGATIVE Ery/ul (0-5); Glucose NEGATIVE (NEGATIVE); Ketones NEGATIVE (NEGATIVE); Leukocyte Esterase NEGATIVE (NEGATIVE); Nitrite NEGATIVE (NEGATIVE); Protein,Urine Dip 30 (Negative); Specific Gravity 1.029 (1.005-1.025); Urobilinogen NEGATIVE mg/dL (0-1)
[2018-08-27] MEDS: Lactated Ringers 1,000 ML IV SCH (00:51)
[2018-08-27] MEDS: TYLENOL EXTRA STRENGTH 500 MG PO PRN ×3 (03:39→23:15)
[2018-08-27] MEDS ORDERED: PITOCIN 30 UNITS/ LR 500 ML 500 ML IV SCH (06:00)
[2018-08-27] MEDS ORDERED: CORTISONE 1% CREAM TP PRN (08:12)
[2018-08-27] MEDS ORDERED: Anucort-HC SUPPOSITORY PR PRN (08:12)
[2018-08-27] MEDS ORDERED: TUCKS TP PRN (08:12)
[2018-08-27] MEDS ORDERED: NORCO 5/325 MG PO PRN (08:12)
[2018-08-27] MEDS ORDERED: LANSINOH 40 GM TOP PRN (08:12)
[2018-08-27] MEDS ORDERED: Dulcolax 10 MG SUPP PR PRN (08:12)
[2018-08-27] MEDS ORDERED: Dermoplast Spray TP PRN (08:12)
[2018-08-27] MEDS ORDERED: TYLENOL EXTRA STRENGTH 500 MG PO PRN (08:12)
[2018-08-27] MEDS ORDERED: Ambien 10 MG PO PRN (08:12)
[2018-08-27] MEDS ORDERED: Mylicon 80MG PO PRN (08:12)
[2018-08-27] MEDS: MOTRIN 400 MG PO PRN ×2 (10:05→18:34)
[2018-08-27] MEDS: Colace 100 MG PO SCH ×2 (10:06→20:40)
[2018-08-27] MEDS: FERREX 150 PO SCH (10:06)
[2018-08-28] MEDS: MOTRIN 400 MG PO PRN ×2 (05:05→15:15)
[2018-08-28 06:36] LABS: Hematocrit 34.7 % (35-47); Mean Cell Volume 91.6 fl (78-100); Mean Corpuscular Hgb Concent. 31.7 g/dl (32-36); Mean Platelet Volume 9.7 fl (6-9.5); Platelet Count 151 K/mm3 (150-450); Red Blood Count 3.79 M/mm3 (4.1-5.4); Red Cell Distribution Width 14.4 % (11.5-14.0); White Blood Count 5.4 K/mm3 (4.0-10.5)
[2018-08-28 08:34] LABS: BAND 3 % (0.0-2.0); Eosinophil 7 % (0.00-3.0); Lymphocytes 45 % (24-44); Monocyte 1 % (0.0-12.0); Neutrophils 44 % (36.0-66.0); Total Cells Counted 100
[2018-08-28] MEDS: FERREX 150 PO SCH (09:59)
[2018-08-28] MEDS: Colace 100 MG PO SCH (09:59)
[2018-08-28] MEDS: TYLENOL EXTRA STRENGTH 500 MG PO PRN (09:59)
--- NOTE | 2018-08-28 10:49 | PCM.DS ---
Discharge Summary Date of Admission: 08/26/18 21:35 Admitting Physician: LEEANN SOSA Consults: Consults on Case 08/26/18 22:21 Notify Anesthesia Provider PRN Primary Care Provider: LEEANN SOSA Allergies Allergies paroxetine [From Paxil] Allergy (Severe, Verified 08/21/18 05:16) "extreme anger" cephalexin monohydrate [From Keflex] Allergy (Intermediate, Verified 08/21/18 05 :16) Hives guaifenesin [From Mucinex] Allergy (Intermediate, Verified 08/21/18 05:16) Hives lisdexamfetamine [From Vyvanse] Adverse Reaction (Unknown, Verified 08/21/18 05: 16) "irritability and constantly clearing throat until it would swell" methylphenidate [From Concerta] Adverse Reaction (Unknown, Verified 08/21/18 05: 16) "irritability and constantly clearing throat until it would swell" Hospital Summary - Hospital Course Hospital Course: patient induced for SGA/IUGR, delivered vaginally with no complications. and well bonded with her . no problems or concerns at this time - Vitals & Intake/Output Vital Signs: Vital Signs Temperature 97.8 F 08/28/18 05:00 Pulse Rate 61 08/28/18 05:00 Respiratory Rate 18 08/27/18 13:00 Blood Pressure 110/61 08/28/18 05:00 O2 Sat by Pulse Oximetry Intake & Output: Intake & Output 08/25/18 08/26/18 08/27/18 08/28/18 11:59 11:59 11:59 11:59 Output Total 300 Balance -300 Weight 74.389 kg - Lab Result Diagrams: 08/28/18 05:20 Lab Results-Last 24 Hrs: Lab Results-Last 24 Hours 08/28/18 Range/Units 05:20 WBC 5.4 (4.0-10.5) K/mm3 RBC 3.79 L (4.1-5.4) M/mm3 Hgb 11.0 L (12.0-16.0) gm/dl Hct 34.7 L (35-47) % MCV 91.6 (78-100) fl MCH 29.0 (26-32) pg MCHC 31.7 L (32-36) g/dl RDW 14.4 H (11.5-14.0) % Plt Count 151 (150-450) K/mm3 MPV 9.7 H (6-9.5) fl Segmented Neutrophils 44 (36.0-66.0) % Band Neutrophils 3 H (0.0-2.0) % Lymphocytes (Manual) 45 H (24-44) % Monocytes (Manual) 1 (0.0-12.0) % Eosinophils (Manual) 7 H (0.00-3.0) % - Procedures and Test Procedures and Tests throughout Hospitalization: Therapy Orders & Screens 08/27/18 03:25 Standby Routine Comment: Diagnosis: induction of labor Discharge Exam General Appearance: no apparent distress, alert Skin Exam: normal color, warm, dry Neck Exam: normal inspection, non-tender, supple, full range of motion Respiratory Exam: normal breath sounds, lungs clear, No respiratory distress Cardiovascular Exam: regular rate/rhythm, normal heart sounds Gastrointestinal/Abdomen Exam: soft, No tenderness, No mass Extremity Exam: normal inspection, normal range of motion Final Diagnosis/Problem List - Final Discharge Diagnosis/Problem (1) Vaginal delivery Current Visit: Yes Status: Acute (2) Breastfed infant Current Visit: Yes Status: Acute - Discharge Disposition: Home, Self-Care Condition: Stable Prescriptions: New Vits W-Ca,Fe,FA(<1Mg) [] 1 each PO DAILY #30 tablet Follow up with: LEEANN SOSA MD [Primary Care Provider] - 1 Week
[2018-08-28 16:07] VITALS: BP 100/55; PULSE 80
== END 2018-08-28 15:30 | disposition home or self-care (01) | DRG 807 ==
LOC: OB 17:19 → OBSVTOIN 21:35 → OB 21:35
PROVIDERS: ADMIT Family Medicine; ATTEND Family Medicine
PROC: 10E0XZZ Delivery of Products of Conception, External Approach (ICD-10-PCS; principal; 2018-08-26)
DX: O80 Encounter for full-term uncomplicated delivery (principal); Z37.0 Single live birth; Z3A.38 38 weeks gestation of pregnancy
CPT/HCPCS: 36415; 80307; 81001; 83986; 85025; 94799; G0378; J0595; J2590; J2795; A9270-GY

== ENCOUNTER 2020-08-11 10:15 | Emergency (ER) | payer OTHER ==
[2020-08-11] MEDS ORDERED: Zofran 4 MG/2 ML VIAL IV ONE (10:49)
[2020-08-11] MEDS ORDERED: Sodium Chloride 0.9% 1000 ML 1,000 ML IV STA (10:49)
[2020-08-11] MEDS ORDERED: Sodium Chloride 0.9% 1000 ML 1,000 ML ONE (10:58)
[2020-08-11] MEDS ORDERED: Zofran 4 MG/2 ML VIAL ONE (10:58)
--- NOTE | 2020-08-11 11:10 | ERPHSYRPT ---
- History of Present Illness Historian: patient Exam Limitations: no limitations Patient Subjective Stated Complaint: pt here for n/v for 3 days, she was covid postive. she believes she is dehydrated. Triage Nursing Assessment: pt alert, walked in, alert resp easy, skin w/ d/p.mucus membranes moist, face mask in palce, Physician History: 19 yo wf w n/v/D x4 days and is worried about being dehydrated. Pt is Covid+ and has mild coryza but denies cough/dyspnea/ST/Fever/dysuria/hematuria. Fever is denied. Timing/Duration: today Activities at Onset: none Quality: other (No pain) Abdominal Pain Onset Location: other (No pain) Pain Radiation: no radiation Severity of Pain-Max: none Severity of Pain-Current: none Modifying Factors: Improves With: eating Associated Symptoms: diarrhea, loss of appetite, nausea, vomiting, weakness, No back, No chest pain, No diaphoresis, No fever/chills, No fatigue, No headache, No heartburn, No neck pain, No rash, No shortness of breath, No syncope Previous symptoms: no prior history Allergies/Adverse Reactions: paroxetine [From Paxil] Allergy (Severe, Verified 08/21/18 05:16) "extreme anger" cephalexin monohydrate [From Keflex] Allergy (Intermediate, Verified 08/21/18 05:16) Hives guaifenesin [From Mucinex] Allergy (Intermediate, Verified 08/21/18 05:16) Hives lisdexamfetamine [From Vyvanse] Adverse Reaction (Unknown, Verified 08/21/18 05:16) "irritability and constantly clearing throat until it would swell" methylphenidate [From Concerta] Adverse Reaction (Unknown, Verified 08/21/18 05:16) "irritability and constantly clearing throat until it would swell" Hx Tetanus, Diphtheria Vaccination/Date Given: Yes Hx Influenza Vaccination/Date Given: No Hx Pneumococcal Vaccination/Date Given: No Immunizations Up to Date: Yes Travel Risk - International Travel Have you traveled outside of the country in past 3 weeks: No - Coronavirus Screening Are you exhibiting any of the following symptoms?: Yes Symptoms: Vomiting/Diarrhea, Loss of Taste or Smell Close contact with a COVID-19 positive Pt in past 14-21 Days: Yes - Review of Systems Constitutional: No Symptoms Eyes: No Symptoms Ears, Nose, & Throat: No Symptoms, Nose Discharge Respiratory: No Symptoms Cardiac: No Symptoms Abdominal/Gastrointestinal: No Symptoms, Nausea, Vomiting, Diarrhea Genitourinary Symptoms: No Symptoms Musculoskeletal: No Symptoms Skin: No Symptoms Neurological: No Symptoms Psychological: No Symptoms Endocrine: No Symptoms Hematologic/Lymphatic: No Symptoms Immunological/Allergic: No Symptoms - Past Medical History Pertinent Past Medical History: Yes Neurological History: Other ENT History: No Pertinent History Cardiac History: No Pertinent History Respiratory History: No Pertinent History Endocrine Medical History: No Pertinent History Musculoskeletal History: No Pertinent History GI Medical History: No Pertinent History History: No Pertinent History Psycho-Social History: Anxiety, Depression, Panic Disorder Female Reproductive Disorders: No Pertinent History Other Medical History: 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, 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 - Past Surgical History Past Surgical History: Yes Neuro Surgical History: No Pertinent History Cardiac: No Pertinent History Respiratory: No Pertinent History Gastrointestinal: No Pertinent History Genitourinary: No Pertinent History Musculoskeletal: No Pertinent History Female Surgical History: Other Other Surgical History: vaginal laproscopy - Social History Smoking Status: Former smoker How long have you smoked: 2yrs Exposure to second hand smoke: Yes Drug Use: none Patient Lives Alone: No - Female History Hx Last Menstrual Period: unsure Hx Now: No - Nursing Vital Signs Nursing Vital Signs: Initial Vital Signs Temperature 98.6 F 08/11/20 10:42 Pulse Rate 73 08/11/20 10:42 Respiratory Rate 16 08/11/20 10:42 Blood Pressure 149/80 08/11/20 10:42 O2 Sat by Pulse Oximetry 98 08/11/20 10:42 Pain Scale Pain Intensity 0 - Physical Exam General Appearance: no apparent distress Eye Exam: PERRL/EOMI, eyes nml inspection Ears, Nose, Throat Exam: normal ENT inspection, TMs normal, pharynx normal, moist mucous membranes Neck Exam: normal inspection, non-tender, supple, full range of motion, No meningismus, No mass, No Brudzinski, No Kernig's, No carotid bruit Respiratory Exam: normal breath sounds, airway intact, No respiratory distress Cardiovascular Exam: regular rate/rhythm, normal heart sounds, normal peripheral pulses, No murmur Gastrointestinal/Abdomen Exam: soft, normal bowel sounds, No tenderness Back Exam: normal inspection, normal range of motion, No CVA tenderness, No vertebral tenderness Extremity Exam: normal inspection, normal range of motion Neurologic Exam: alert, oriented x 3, cooperative, road tester II-XII nml as tested, normal mood/affect, nml station & gait, sensation nml, No motor deficits, No sensory deficit Skin Exam: normal color, warm, dry, No rash Lymphatic Exam: No adenopathy SpO2 Interpretation: normal SpO2: 98 O2 Delivery: Room Air Ordered Tests: Active Orders 24 hr Category Date Time Status IV Insertion STAT Care 08/11/20 10:49 Completed Medication Summary Discontinued Medications Generic Name Dose Route Start Last Admin Trade Name Freq PRN Reason Stop Dose Admin Sodium Chloride 1,000 mls @ 999 mls/hr 08/11/20 10:49 08/11/20 11:00 Sodium Chloride 0.9% 1000 Ml IV 08/11/20 11:49 999 mls/hr .Q1H1M STA Administration Sodium Chloride Confirm 08/11/20 10:58 Sodium Chloride 0.9% 1000 Ml Administered 08/11/20 10:59 Dose 1,000 mls @ ud .ROUTE .STK-MED ONE Ondansetron HCl 4 mg 08/11/20 10:49 08/11/20 10:59 Zofran 4 Mg/2 Ml Vial IV 08/11/20 10:50 4 mg STAT ONE Administration Ondansetron HCl Confirm 08/11/20 10:58 Zofran 4 Mg/2 Ml Vial Administered 08/11/20 10:59 Dose 4 mg .ROUTE .STK-MED ONE - Progress Progress Note: 08/11/20 11:37 1L NS bolus/4mg IV Zofran w improvement. Pt holding down fluids wo problem. - Departure Clinical Impression: COVID-19, Nausea & vomiting Condition: Stable Critical Care Time: No Referrals: BLANCA SORTO NP [Primary Care Provider] - Instructions: Nausea and Vomiting, Adult (DC) Additional Instructions: Fluids/Rest Zofran for nausea/vomiting Follow up with your family MD Return to ER for increasing abdominal pain or inability to hold down fluids Prescriptions: Ondansetron ODT 4 MG [Zofran Odt 4 mg] 4 mg PO Q6H PRN PRN #10 tab.rapdis PRN Reason: Nausea/Vomiting
[2020-08-11 11:37] VITALS: BP 114/56
[2020-08-11 12:02] VITALS: PULSE 57
[2020-08-11 12:33] VITALS: O2SAT 98
== END 2020-08-11 12:24 | disposition home or self-care (01) ==
LOC: ED 10:15
DX: U07.1 COVID-19 (principal); R11.2 Nausea with vomiting, unspecified
CPT/HCPCS: 36000; 96360; 96374; 99284; J2405

== ENCOUNTER 2020-10-02 10:27 | Emergency (ER) | payer OTHER ==
[2020-10-02] MEDS ORDERED: solu-MEDROL 125 MG IV ONE (10:54)
[2020-10-02] MEDS ORDERED: solu-MEDROL 125 MG ONE (11:10)
--- NOTE | 2020-10-02 11:15 | ERPHSYRPT ---
- History of Present Illness Source: patient Exam Limitations: no limitations Patient Subjective Stated Complaint: Pt stated that 3 days ago she bent over and her throat closed off and she couldn't breath, it took approx 5 minutes to have full control again, pt bent over again yesterday and it happened again, today pt was at work and talking when it suddenly closed off and it took another 4-5 mi nutes before it fully reopened Triage Nursing Assessment: Pt brought self to the ER, vitals wnl, reports a headache for the past week that she has been treating with Tylenol, denies any injury to throat, did have difficulty swallowing approx 3 hours after the 1st episode, pulses normal, no lumps or swelling of the neck or throat, denies pain just pressure, no difficulties with breathing at this time Physician History: 19-year-old female who presents with 3 days of "choking sensation". For the past 3 days patient has had choking sensation. The first 2 days it was mainly when she had bent over and felt her airway being blocked and took a li ttle bit of time to open back up. The third day patient was just standing and talking without bending over and had a choking sensation as well. Patient does vape. Patient mentions occasional shortness of breath especially going up stairs and feels that it is odd considering she is very young to be having shortness of breath. Denies fever. Has felt "a bit under the weather" over the past week and thought she might be coming down with something. Patient denies any new medications. Has been on Lexapro for years. Patient also mentions of some adenoids on her thyroid in the past. Her last ultrasound was years ago. Has not had any issues. Timing/Duration: abrupt onset Severity: severe ENT Location: throat Prearrival Treatment: no prearrival treatment Modifying Factors: Improves With: activity (Bending forward) Associated Symptoms: difficulty swallowing Allergies/Adverse Reactions: paroxetine [From Paxil] Allergy (Severe, Verified 10/02/20 10:44) "extreme anger" cephalexin monohydrate [From Keflex] Allergy (Intermediate, Verified 10/02/20 10:44) Hives guaifenesin [From Mucinex] Allergy (Intermediate, Verified 10/02/20 10:44) Hives lisdexamfetamine [From Vyvanse] Adverse Reaction (Unknown, Verified 10/02/20 10:44) "irritability and constantly clearing throat until it would swell" methylphenidate [From Concerta] Adverse Reaction (Unknown, Verified 10/02/20 10:44) "irritability and constantly clearing throat until it would swell" Home Medications: Escitalopram Oxalate [Lexapro] 20 mg PO DAILY 10/02/20 [History] Hx Tetanus, Diphtheria Vaccination/Date Given: Yes Hx Influenza Vaccination/Date Given: No Hx Pneumococcal Vaccination/Date Given: No Travel Risk - International Travel Have you traveled outside of the country in past 3 weeks: No - Coronavirus Screening Are you exhibiting any of the following symptoms?: No Close contact with a COVID-19 positive Pt in past 14-21 Days: No - Review of Systems Constitutional: No Fever, No Chills Eyes: No Symptoms Ears, Nose, & Throat: Nose Congestion, Throat Swelling Respiratory: Dyspnea, No Cough Cardiac: No Chest Pain, No Edema, No Syncope Abdominal/Gastrointestinal: No Abdominal Pain, No Nausea, No Vomiting, No Diarrhea Genitourinary Symptoms: No Dysuria Musculoskeletal: No Back Pain, No Neck Pain Skin: No Rash Neurological: No Dizziness, No Focal Weakness, No Sensory Changes Psychological: No Symptoms Endocrine: No Symptoms All Other Systems: Reviewed and Negative - Past Medical History Pertinent Past Medical History: Yes Neurological History: Other ENT History: No Pertinent History Cardiac History: No Pertinent History Respiratory History: No Pertinent History Endocrine Medical History: No Pertinent History Musculoskeletal History: No Pertinent History GI Medical History: No Pertinent History History: No Pertinent History Psycho-Social History: Anxiety, Depression, Panic Disorder Female Reproductive Disorders: No Pertinent History Other Medical History: 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, 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 - Past Surgical History Past Surgical History: Yes Neuro Surgical History: No Pertinent History Cardiac: No Pertinent History Respiratory: No Pertinent History Gastrointestinal: No Pertinent History Genitourinary: No Pertinent History Musculoskeletal: No Pertinent History Female Surgical History: Other Other Surgical History: vaginal laproscopy - Social History Smoking Status: Former smoker How long have you smoked: 2yrs Exposure to second hand smoke: Yes Drug Use: none Patient Lives Alone: No - Female History Hx Now: No (depo) - Nursing Vital Signs Nursing Vital Signs: Initial Vital Signs Temperature 98.4 F 10/02/20 10:31 Pulse Rate 87 10/02/20 10:31 Blood Pressure 130/65 10/02/20 10:31 O2 Sat by Pulse Oximetry 100 10/02/20 10:31 Pain Scale Pain Intensity 0 - Physical Exam General Appearance: no apparent distress, alert Eye Exam: bilateral eye: PERRL, EOMI Ear Exam: bilateral ear: auricle normal, canal normal, TM normal Nasal Exam: normal inspection Throat Exam: pharynx normal, moist mucus membranes, No tonsillar exudate Neck Exam: supple Cardiovascular/Respiratory Exam: normal breath sounds, regular rate/rhythm Abdominal Exam: non-tender, soft Neurologic Exam: alert, oriented x 3, sensation nml, No motor deficits Skin Exam: normal color, warm, dry SpO2 Interpretation: normal SpO2: 100 - Course Nursing assessment & vital signs reviewed: Yes Ordered Tests: Active Orders 24 hr Category Date Time Status IV Insertion STAT Care 10/02/20 10:49 Active NECK WITH CONTRAST [CT] Stat Exams 10/02/20 10:57 Completed CBC W DIFF Stat Lab 10/02/20 11:05 Completed CMP Stat Lab 10/02/20 11:05 Completed HCG QUALITATIVE,SERUM Stat Lab 10/02/20 11:05 Completed [place] Screen Stat Lab 10/02/20 11:05 Completed TSH [TSH, 3RD Generation] Stat Lab 10/02/20 11:05 Completed Medication Summary Discontinued Medications Generic Name Dose Route Start Last Admin Trade Name Marcelo PRN Reason Stop Dose Admin Methylprednisolone Sodium Succinate 125 mg 10/02/20 10:54 10/02/20 11:11 Solu-Medrol 125 Mg IV 10/02/20 10:55 125 mg STAT ONE Administration Methylprednisolone Sodium Succinate Confirm 10/02/20 11:10 Solu-Medrol 125 Mg Administered 10/02/20 11:11 Dose 125 mg .ROUTE .STK-MED ONE Lab/Rad Data: Laboratory Result Diagrams 10/02/20 11:05 10/02/20 11:05 Laboratory Results 10/02/20 10/02/20 10/02/20 Range/Units 11:05 11:05 11:05 WBC (4.0-10.5) K/mm3 RBC (4.1-5.4) M/mm3 Hgb (12.0-16.0) gm/dl Hct (35-47) % MCV (78-100) fl MCH (26-32) pg MCHC (32-36) g/dl RDW (11.5-14.0) % Plt Count (150-450) K/mm3 MPV (7.5-11.0) fl Gran % (36.0-66.0) % Eos # (Auto) (0-0.5) Absolute Lymphs (auto) (1.0-4.6) Absolute Monos (auto) (0.0-1.3) Lymphocytes % (24.0-44.0) % Monocytes % (0.0-12.0) % Eosinophils % (0.00-5.0) % Basophils % (0.0-0.4) % Absolute Granulocytes (1.4-6.9) Basophils # (0-0.4) Sodium (137-145) mmol/L Potassium (3.5-5.1) mmol/L Chloride (98-107) mmol/L Carbon Dioxide (22-30) mmol/L Anion Gap (5-15) MEQ/L BUN (7-17) mg/dL Creatinine (0.52-1.04) mg/dL Estimated GFR ML/MIN Glucose (74-106) mg/dL Calcium (8.4-10.2) mg/dL Total Bilirubin (0.2-1.3) mg/dL AST (14-36) U/L ALT (0-35) U/L Alkaline Phosphatase (38-126) U/L Serum Total Protein (6.3-8.2) g/dL Albumin (3.5-5.0) g/dL TSH 3rd Generation 0.567 (0.47-4.68) mIU/L Serum , Qual NEGATIVE (Negative) Monoscreen NEGATIVE (Negative) 10/02/20 10/02/20 Range/Units 11:05 11:05 WBC 4.0 (4.0-10.5) K/mm3 RBC 4.32 (4.1-5.4) M/mm3 Hgb 13.1 (12.0-16.0) gm/dl Hct 40.6 (35-47) % MCV 94.0 (78-100) fl MCH 30.3 (26-32) pg MCHC 32.3 (32-36) g/dl RDW 12.9 (11.5-14.0) % Plt Count 191 (150-450) K/mm3 MPV 10.0 (7.5-11.0) fl Gran % 41.8 (36.0-66.0) % Eos # (Auto) 0.04 (0-0.5) Absolute Lymphs (auto) 2.02 (1.0-4.6) Absolute Monos (auto) 0.25 (0.0-1.3) Lymphocytes % 50.6 H (24.0-44.0) % Monocytes % 6.3 (0.0-12.0) % Eosinophils % 1.0 (0.00-5.0) % Basophils % 0.3 (0.0-0.4) % Absolute Granulocytes 1.67 (1.4-6.9) Basophils # 0.01 (0-0.4) Sodium 138 (137-145) mmol/L Potassium 4.2 (3.5-5.1) mmol/L Chloride 106 (98-107) mmol/L Carbon Dioxide 25 (22-30) mmol/L Anion Gap 11.4 (5-15) MEQ/L BUN 11 (7-17) mg/dL Creatinine 0.74 (0.52-1.04) mg/dL Estimated GFR > 60.0 ML/MIN Glucose 96 (74-106) mg/dL Calcium 9.7 (8.4-10.2) mg/dL Total Bilirubin 0.60 (0.2-1.3) mg/dL AST 26 (14-36) U/L ALT 19 (0-35) U/L Alkaline Phosphatase 52 (38-126) U/L Serum Total Protein 7.5 (6.3-8.2) g/dL Albumin 4.7 (3.5-5.0) g/dL TSH 3rd Generation (0.47-4.68) mIU/L Serum , Qual (Negative) Monoscreen (Negative) - Progress Progress: improved Progress Note: 10/02/20 12:26 Given patient's symptoms, will get basic labs, TSH, mono screen, rapid strep test, CT of neck with IV contrast. Patient in agreement with those testing. Results were fairly benign. Labs were free pretty normal. At the time of this dictation the strep test is not back yet but we anticipate that to be normal. CT of neck shows small scattered cervical lymph nodes. 3-4 mm right thyroid nodule/cyst. Ultrasound done in 2019 shows the same cyst to be 5 x 5 x 2 mm. Discussed results with patient who feels better given the results. We will prescribe prednisone and will treat as more of an inflammatory/allergic reaction. Will DC with precautions. Counseled pt/family regarding: lab results, diagnosis, need for follow-up, rad results, smoking cessation - Departure Departure Disposition: Home Clinical Impression: Thyroid cyst, Dysphagia, Anxiety Condition: Stable Critical Care Time: No Referrals: BLANCA SORTO NP [Primary Care Provider] - Instructions: Thyroid Nodules Additional Instructions: Monitor symptoms closely. Take medicine as prescribed. Follow-up with your PCP for further guidance on your thyroid. Return to ER if worse. Forms: Work/School Release Form Prescriptions: Prednisone 20 mg [Deltasone 20 mg] 40 mg PO DAILY 5 Days #10 tablet
[2020-10-02 11:17] LABS: Absolute Neutrophil Ct (ANC) 1.67 (1.4-6.9); BASOPHIL % 0.3 % (0.0-0.4); Basophil (Absolute #) 0.01 (0-0.4); Eosinophil (Absolute #) 0.04 (0-0.5); Hematocrit 40.6 % (35-47); Hemoglobin 13.1 gm/dl (12.0-16.0); Lymphocyte (Absolute #) 2.02 (1.0-4.6); Lymphocytes % 50.6 % (24.0-44.0); Mean Corpuscular Hemoglobin 30.3 pg (26-32); Mean Corpuscular Hgb Concent. 32.3 g/dl (32-36); Monocyte (Absolute #) 0.25 (0.0-1.3); Monocytes % 6.3 % (0.0-12.0); Neutrophil % 41.8 % (36.0-66.0); Platelet Count 191 K/mm3 (150-450); Red Blood Count 4.32 M/mm3 (4.1-5.4); Red Cell Distribution Width 12.9 % (11.5-14.0)
[2020-10-02 11:33] LABS: ALBUMIN 4.7 g/dL (3.5-5.0); ALKALINE PHOSPHATASE 52 U/L (38-126); ANION GAP 11.4 MEQ/L (5-15); BLOOD UREA NITROGEN 11 mg/dL (7-17); CHLORIDE 106 mmol/L (98-107); Calcium 9.7 mg/dL (8.4-10.2); Carbon Dioxide 25 mmol/L (22-30); Creatinine 1 0.74 mg/dL (0.52-1.04); EST GLOMERULAR FILTRATION RATE > 60.0 ML/MIN; Glucose 96 mg/dL (74-106); Potassium 4.2 mmol/L (3.5-5.1); SGOT/AST 26 U/L (14-36); SGPT/ALT 19 U/L (0-35); SODIUM 138 mmol/L (137-145); Total Protein 7.5 g/dL (6.3-8.2)
[2020-10-02 11:43] VITALS: BP 113/66; PULSE 76
--- NOTE | 2020-10-02 11:57 | XRAY ---
Indication: Dysphagia. Intermittent neck swelling for weeks. Multiple contiguous axial images obtained through the neck using 80 cc Isovue 370 contrast. Comparison: None. Small cervical lymph nodes scattered bilaterally, largest adjacent to the carotid bulb measuring 9 x 13 mm bilaterally. No pathologic cervical/supraclavicular lymphadenopathy. Major arteries and veins are normal in course and caliber. Parotid and submandibular glands are bilaterally symmetric. Thyroid gland enhances with 3-4 mm round right lobe nodule vs cyst. Supra and infraglottic airway is widely patent. Normal epiglottis. Underlying cervical spine intact. Base of the brain and lung apices are unremarkable. Impression: 1. Small scattered nonpathologic cervical lymph nodes bilaterally. 2. 3-4 mm right thyroid nodule/cyst. 3. Remaining CT neck with contrast exam is negative.
[2020-10-02 12:31] VITALS: O2SAT 100
== END 2020-10-02 12:37 | disposition home or self-care (01) ==
LOC: ED 10:27
DX: E04.1 Nontoxic single thyroid nodule (principal); R13.10 Dysphagia, unspecified; F41.9 Anxiety disorder, unspecified
CPT/HCPCS: 36000; 36415; 70491; 80053; 81025; 84443; 85025; 86308; 87651; 96374; 99284; J2930

== ENCOUNTER 2022-02-03 08:25 | Emergency (ER) | payer OTHER ==
[2022-02-03 08:49] VITALS: BP 137/72
[2022-02-03 08:50] VITALS: PULSE 75; O2SAT 99
--- NOTE | 2022-02-03 08:57 | ERPHSYRPT ---
- History of Present Illness Time Seen by Provider: 02/03/22 08:50 Historian: patient Exam Limitations: no limitations Patient Subjective Stated Complaint: Abdominal pain Triage Nursing Assessment: Patient ambulated back to ED and transferred self to bed. Patient A+ O X 3. Patient's skin pink, warm and dry. Patient complains of lower abdominal pain on and off since Monday. Patient states the pain currently is a constant squeezing feeling in her lower abdomen 7/10. Patient complains of diarrhea but denies N/V. Abdomen soft and round with BS X 4. Physician History: Patient is a 21-year-old female presents to our ED for evaluation of lower abdominal pain. Patient states lower abdominal pain started 5 days ago on Monday. Pain described as a intermittent squeezing sensation rated 7 out of 10. Patient states pain is now constant. Pain is moderate in intensity. No specific worsening or improving factors. Patient admits to diarrhea but no nausea or vomiting. No trauma. No fever. Patient denies a history of the same. Patient admits to a white vaginal discharge that is unusual for her.. Patient voices no other complaints or concerns at this time. Timing/Duration: day(s) (5 days ago) Activities at Onset: none Quality: other (Squeezing sensation) Abdominal Pain Onset Location: other (Lower abdomen suprapubic region) Pain Radiation: no radiation Severity of Pain-Max: moderate Severity of Pain-Current: mild Modifying Factors: Improves With: palpation Associated Symptoms: diarrhea, No fever/chills, No nausea, No shortness of breath, No syncope, No vomiting, No weakness Previous symptoms: no prior history Allergies/Adverse Reactions: paroxetine [From Paxil] Allergy (Severe, Verified 02/03/22 08:40) "extreme anger" cephalexin monohydrate [From Keflex] Allergy (Intermediate, Verified 02/03/22 08:40) Hives guaifenesin [From Mucinex] Allergy (Intermediate, Verified 02/03/22 08:40) Hives lisdexamfetamine [From Vyvanse] Adverse Reaction (Unknown, Verified 02/03/22 08:40) "irritability and constantly clearing throat until it would swell" methylphenidate [From Concerta] Adverse Reaction (Unknown, Verified 02/03/22 08:40) "irritability and constantly clearing throat until it would swell" Hx Tetanus, Diphtheria Vaccination/Date Given: Yes Hx Influenza Vaccination/Date Given: No Hx Pneumococcal Vaccination/Date Given: No Immunizations Up to Date: Yes Travel Risk - International Travel Have you traveled outside of the country in past 3 weeks: No - Coronavirus Screening Are you exhibiting any of the following symptoms?: No Close contact with a COVID-19 positive Pt in past 14-21 Days: No - Vaccine Status Have you recieved a Covid-19 vaccination: No - Review of Systems Constitutional: No Symptoms, No Fever, No Chills Eyes: No Symptoms Ears, Nose, & Throat: No Symptoms Respiratory: No Symptoms, No Cough, No Dyspnea Cardiac: No Symptoms, No Chest Pain, No Edema, No Syncope Abdominal/Gastrointestinal: No Symptoms, No Abdominal Pain, No Nausea, No Vomiting, No Diarrhea Genitourinary Symptoms: No Symptoms, No Dysuria Musculoskeletal: No Symptoms, No Back Pain, No Neck Pain Skin: No Rash Neurological: No Symptoms, No Dizziness, No Focal Weakness, No Sensory Changes Psychological: No Symptoms Endocrine: No Symptoms Hematologic/Lymphatic: No Symptoms Immunological/Allergic: No Symptoms All Other Systems: Reviewed and Negative - Past Medical History Pertinent Past Medical History: Yes Neurological History: Other ENT History: No Pertinent History Cardiac History: No Pertinent History Respiratory History: No Pertinent History Endocrine Medical History: No Pertinent History Musculoskeletal History: No Pertinent History GI Medical History: No Pertinent History History: No Pertinent History Psycho-Social History: Anxiety, Depression, Panic Disorder Female Reproductive Disorders: No Pertinent History Other Medical History: 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, 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 - Past Surgical History Past Surgical History: Yes Neuro Surgical History: No Pertinent History Cardiac: No Pertinent History Respiratory: No Pertinent History Gastrointestinal: No Pertinent History Genitourinary: No Pertinent History Musculoskeletal: No Pertinent History Female Surgical History: Other Other Surgical History: vaginal laproscopy - Social History Smoking Status: Former smoker How long have you smoked: 2yrs Exposure to second hand smoke: Yes Drug Use: none Patient Lives Alone: No - Female History Hx Last Menstrual Period: may Hx Now: No - Nursing Vital Signs Nursing Vital Signs: Initial Vital Signs Temperature 98.8 F 02/03/22 08:41 Pulse Rate 75 02/03/22 08:41 Respiratory Rate 18 02/03/22 08:41 Blood Pressure 137/72 02/03/22 08:41 O2 Sat by Pulse Oximetry 99 02/03/22 08:41 Pain Scale Pain Intensity 8 - Physical Exam General Appearance: no apparent distress, alert Eye Exam: PERRL/EOMI, eyes nml inspection Ears, Nose, Throat Exam: normal ENT inspection, TMs normal, pharynx normal, moist mucous membranes Neck Exam: normal inspection, non-tender, supple, full range of motion Respiratory Exam: normal breath sounds, lungs clear, airway intact, No chest tenderness, No respiratory distress Cardiovascular Exam: regular rate/rhythm, normal heart sounds Gastrointestinal/Abdomen Exam: soft, normal bowel sounds, other (Tenderness to palpation across lower abdomen. More so at the suprapubic region.), No tenderness, No distention, No mass Pelvic Exam: normal external exam, vaginal discharge (Scant white vaginal discharge, no foul odor), No cervical motion tenderness, No vaginal bleeding, No uterine tenderness Back Exam: normal inspection, normal range of motion, No CVA tenderness, No vertebral tenderness Extremity Exam: normal inspection, normal range of motion, pelvis stable Neurologic Exam: alert, oriented x 3, cooperative, normal mood/affect, nml cerebellar function, sensation nml, No motor deficits Skin Exam: normal color, warm, dry Lymphatic Exam: No adenopathy SpO2 Interpretation: normal SpO2: 99 O2 Delivery: Room Air - Course Nursing assessment & vital signs reviewed: Yes - CT Exams Abdomen/Pelvis CT Interpretation: Tele-radiologist Report (New mild fluid distended small bowel loops with circumferential wall thickening ileus versus enteritis. Tiny pelvic free fluid presumed reactive. Remaining CT abdomen pelvis without contrast is negative. Normal air-filled appendix. Incidental hepatic and splenic granuloma) Ordered Tests: Active Orders 24 hr Category Date Time Status ABDOMEN AND PELVIS W/0 CONTRAS [CT] Stat Exams 02/03/22 09:37 Completed CBC W DIFF Stat Lab 02/03/22 09:00 Received CMP Stat Lab 02/03/22 09:00 Completed HCG,QUALITATIVE URINE Stat Lab 02/03/22 09:00 Completed LIPASE Stat Lab 02/03/22 09:00 Completed UA W/RFX CULTURE Stat Lab 02/03/22 09:29 Results Wet Prep Stat Lab 02/03/22 09:21 Completed Medication Summary Generic Name Dose Route Start Last Admin Trade Name Freq PRN Reason Stop Dose Admin Sodium Chloride 1,000 mls @ 100 mls/hr 02/03/22 09:15 02/03/22 09:24 Sodium Chloride 0.9% 1000 Ml IV 03/05/22 09:14 100 mls/hr .Q10H JULEE Administration Discontinued Medications Generic Name Dose Route Start Last Admin Trade Name Marcelo PRN Reason Stop Dose Admin Morphine Sulfate 2 mg 02/03/22 09:10 02/03/22 09:25 Morphine Sulfate 2 Mg/Ml Inj IV 02/03/22 09:11 2 mg STAT ONE Administration Morphine Sulfate Confirm 02/03/22 09:23 Morphine Sulfate 2 Mg/Ml Inj Administered 02/03/22 09:24 Dose 2 mg .ROUTE .STK-MED ONE Lab/Rad Data: Laboratory Result Diagrams 02/03/22 09:00 Laboratory Results 02/03/22 02/03/22 02/03/22 Range/Units 09:29 09:21 09:00 Sodium 138 (137-145) mmol/L Potassium 4.2 (3.5-5.1) mmol/L Chloride 107 (98-107) mmol/L Carbon Dioxide 21 L (22-30) mmol/L Anion Gap 14.7 (5-15) MEQ/L BUN 18 H (7-17) mg/dL Creatinine 0.59 (0.52-1.04) mg/dL Estimated GFR > 60.0 ML/MIN Glucose 132 H (74-106) mg/dL Calcium 9.1 (8.4-10.2) mg/dL Total Bilirubin 0.60 (0.2-1.3) mg/dL AST 23 (14-36) U/L ALT 22 (0-35) U/L Alkaline Phosphatase 59 (38-126) U/L Serum Total Protein 6.7 (6.3-8.2) g/dL Albumin 4.0 (3.5-5.0) g/dL Lipase (23-300) U/L Urinalys Dipstick Clnc Pending Urine Color YELLOW (YELLOW) Urine Appearance CLEAR (CLEAR) Urine pH 7.0 (5-6) Ur Specific [place] 1.025 (1.005-1.025) POC Urine Protein Conf NEGATIVE (Negative) Urine Ketones NEGATIVE (NEGATIVE) Urine Nitrite NEGATIVE (NEGATIVE) Urine Bilirubin NEGATIVE (NEGATIVE) Urine Urobilinogen 0.2 (0-1) mg/dL Urine Leukocytes NEGATIVE (NEGATIVE) Urine WBC (Auto) 0-2 (0-5) /HPF Urine RBC (Auto) 3-5 (0-2) /HPF U Epithel Cells (Auto) FEW (FEW) /HPF Urine RBC SMALL (0-5) [place]/ul Urine Mucus (Auto) SLIGHT (NEGATIVE) /HPF Ur Culture Indicated? NO Urine Glucose NEGATIVE (NEGATIVE) mg/dL Urine HCG, Qual (Negative) WBC (Wet Prep) Moderate RBC (Wet Prep) Few Epi Cells (Wet Prep) Few Bacteria (Wet Prep) Moderate Clue Cells (Wet Prep) Few Trichomonas (Wet Prep) None Seen Budding Yeast (Wet Prp) None Seen Chlamydia DNA Probe (NEGATIVE) N.gonorrhoeae DNA Probe (NEGATIVE) 02/03/22 02/03/22 02/03/22 Range/Units 09:00 09:00 09:00 Sodium (137-145) mmol/L Potassium (3.5-5.1) mmol/L Chloride (98-107) mmol/L Carbon Dioxide (22-30) mmol/L Anion Gap (5-15) MEQ/L BUN (7-17) mg/dL Creatinine (0.52-1.04) mg/dL Estimated GFR ML/MIN Glucose (74-106) mg/dL Calcium (8.4-10.2) mg/dL Total Bilirubin (0.2-1.3) mg/dL AST (14-36) U/L ALT (0-35) U/L Alkaline Phosphatase (38-126) U/L Serum Total Protein (6.3-8.2) g/dL Albumin (3.5-5.0) g/dL Lipase 151 (23-300) U/L Urinalys Dipstick Clnc Urine Color (YELLOW) Urine Appearance (CLEAR) Urine pH (5-6) Ur Specific [place] (1.005-1.025) POC Urine Protein Conf (Negative) Urine Ketones (NEGATIVE) Urine Nitrite (NEGATIVE) Urine Bilirubin (NEGATIVE) Urine Urobilinogen (0-1) mg/dL Urine Leukocytes (NEGATIVE) Urine WBC (Auto) (0-5) /HPF Urine RBC (Auto) (0-2) /HPF U Epithel Cells (Auto) (FEW) /HPF Urine RBC (0-5) [place]/ul Urine Mucus (Auto) (NEGATIVE) /HPF Ur Culture Indicated? Urine Glucose (NEGATIVE) mg/dL Urine HCG, Qual NEGATIVE (Negative) WBC (Wet Prep) RBC (Wet Prep) Epi Cells (Wet Prep) Bacteria (Wet Prep) Clue Cells (Wet Prep) Trichomonas (Wet Prep) Budding Yeast (Wet Prp) Chlamydia DNA Probe NOT DETECTED (NEGATIVE) N.gonorrhoeae DNA Probe NOT DETECTED (NEGATIVE) - Progress Progress: improved Progress Note: Patient reassessed. She feels much better. IV fluids infused. Patient received morphine for pain control. CT scan reveals an enteritis versus an ileus. GC chlamydia negative. Wet prep reveals clue cells significant for BV. A prescription for Flagyl was forwarded to patient's pharmacy. Pelvic exam was essentially nonremarkable. No adnexal tenderness or masses. No CMT. Scant white vaginal discharge. Patient states she is ready for discharge. Patient agrees to follow-up with primary care doctor within 48 hours for evaluation. Portions of this note were created with voice recognition technology. There may be grammatical, spelling, punctuation or sound alike errors 02/03/22 10:52 Counseled pt/family regarding: lab results, diagnosis, need for follow-up, rad results - Departure Departure Disposition: Home Clinical Impression: Bacterial vaginosis, Hepatic granuloma, Splenic granuloma, Enteritis, Ileus Condition: Stable Critical Care Time: No Referrals: ARTEMIO TAMEZ MD [Primary Care Provider] - Follow up/PCP as directed Additional Instructions: Discharge/Care Plan ADAM VILLALOBOS was seen on 02/03/22 in the Emergency Room. The patient was counseled regarding Diagnosis,Lab results, Imaging studies, need for follow up and when to return to the Emergency Room. Prescriptions given: Discharge Note I have spoken with the patient and/or caregivers. I have explained the patient's condition, diagnosis and treatment plan based on the information available to me at this time. I have answered the patient's and/or caregiver's questions and add ressed any concerns. The patient and/or caregivers have as good understanding of the patient's diagnosis, condition and treatment plan as can be expected at this point. The vital signs have been stable. The patient's condition is stable and appropriate for discharge from the emergency department. The patient will pursue further outpatient evaluation with the primary care physician or other designated or consulting physician as outlined in the discharge instructions. The patient and/or caregivers are agreeable to this plan of care and follow-up instructions have been explained in detail. The patient and/or caregivers have received these instruction. The patient/and or caregivers are aware that any significant change in condition or worsening of symptoms should prompt an immediate return to this or the closest emergency department or call 911. Prescriptions: Metronidazole 500 mg [Flagyl 500 MG] 500 mg PO BID 7 Days #14 tablet
[2022-02-03] MEDS ORDERED: MORPHINE SULFATE 2 MG INJ IV ONE (09:10)
[2022-02-03] MEDS ORDERED: Sodium Chloride 0.9% 1000 ML 1,000 ML IV SCH (09:15)
[2022-02-03] MEDS ORDERED: MORPHINE SULFATE 2 MG INJ ONE (09:23)
[2022-02-03] MEDS ORDERED: Sodium Chloride 0.9% 1000 ML 1,000 ML ONE (09:24)
[2022-02-03 09:53] LABS: Epithelial Cells FEW /HPF (FEW); Mucus SLIGHT /HPF (NEGATIVE); WBC 0-2 /HPF (0-5)
[2022-02-03 09:55] LABS: Appearance CLEAR (CLEAR); Bilirubin NEGATIVE (NEGATIVE); Dipstick done @ ? MAIN LAB; Glucose NEGATIVE (NEGATIVE); Ketones NEGATIVE (NEGATIVE); Nitrite NEGATIVE (NEGATIVE); Protein,Urine Dip NEGATIVE (Negative); RBC SMALL Ery/ul (0-5); Specific Gravity 1.025 (1.005-1.025); Urobilinogen 0.2 mg/dL (0-1)
[2022-02-03 09:56] LABS: Urine Cultured Indicated? NO
--- NOTE | 2022-02-03 09:56 | XRAY ---
Indication: Intermittent abdomen paining and cramping 5 days. Diarrhea. Multiple contiguous axial images obtained through the abdomen and pelvis without contrast. Comparison: December 17, 2014. Lung bases remain clear. Heart not enlarged. Noncontrasted stomach and bowel loops appear nonobstructed. There is now mild fluid distended small bowel loops with mild circumferential wall thickening, ileus versus enteritis. Tiny pelvic free fluid presumed reactive. Normal air-filled appendix. No free air. Incidental tiny hepatic/splenic calcified granulomas. Remaining liver, gallbladder, pancreas, spleen, adrenal glands, kidneys, ureters, bladder, uterus, and aorta are unremarkable for noncontrast exam. Osseous structures intact. Impression: 1. New mild fluid distended small bowel loops with circumferential wall thickening, ileus versus enteritis. Tiny pelvic free fluid presumed reactive. 2. Remaining CT abdomen/pelvis without contrast exam is negative.
[2022-02-03 10:02] LABS: Bacteria Moderate; Clue Cells Few; Red Blood Cells Few; Trichomonas None Seen; White Blood Cells Moderate; Yeast None Seen
[2022-02-03 10:43] LABS: CHLAMYDIA DNA NOT DETECTED (NEGATIVE); GC DNA Probe NOT DETECTED (NEGATIVE)
[2022-02-03 10:47] LABS: ALKALINE PHOSPHATASE 59 U/L (38-126); ANION GAP 14.7 MEQ/L (5-15); BLOOD UREA NITROGEN 18 mg/dL (7-17); CHLORIDE 107 mmol/L (98-107); Calcium 9.1 mg/dL (8.4-10.2); Carbon Dioxide 21 mmol/L (22-30); Creatinine 1 0.59 mg/dL (0.52-1.04); EST GLOMERULAR FILTRATION RATE > 60.0 ML/MIN; Glucose 132 mg/dL (74-106); Potassium 4.2 mmol/L (3.5-5.1); SGOT/AST 23 U/L (14-36); SGPT/ALT 22 U/L (0-35); SODIUM 138 mmol/L (137-145); Total Protein 6.7 g/dL (6.3-8.2)
[2022-02-03 10:49] LABS: Absolute Neutrophil Ct (ANC) 3.64 x10^3/uL (1.4-6.9); Basophil (Absolute #) 0.03 x10^3/uL (0-0.4); Eosinophil % 2.4 % (0.00-5.0); Eosinophil (Absolute #) 0.15 x10^3/uL (0-0.5); Hematocrit 39.6 % (35-47); Hemoglobin 12.9 g/dL (12.0-16.0); Lymphocyte (Absolute #) 2.05 x10^3/uL (1.0-4.6); Lymphocytes % 32.8 % (24.0-44.0); Mean Cell Volume 92.7 fL (78-100); Mean Corpuscular Hemoglobin 30.2 pg (26-32); Mean Corpuscular Hgb Concent. 32.6 g/dL (32-36); Mean Platelet Volume 10.6 fL (7.5-11.0); Monocyte (Absolute #) 0.36 x10^3/uL (0.0-1.3); Monocytes % 5.8 % (0.0-12.0); Neutrophil % 58.2 % (36.0-66.0); Platelet Count 250 x10^3/uL (150-450); Red Blood Count 4.27 x10^6/uL (4.1-5.4); Red Cell Distribution Width 13.2 % (11.5-14.0); White Blood Count 6.3 x10^3/uL (4.0-10.5)
== END 2022-02-03 11:11 | disposition home or self-care (01) ==
LOC: ED 08:25
DX: N76.0 Acute vaginitis (principal); K75.3 Granulomatous hepatitis, not elsewhere classified; K66.8 Other specified disorders of peritoneum; K52.9 Noninfective gastroenteritis and colitis, unspecified; K56.7 Ileus, unspecified; R10.30 Lower abdominal pain, unspecified
CPT/HCPCS: 36000; 36415; 74176; 80053; 81015; 83690; 84703; 85025; 87210; 87491; 87591; 96374; 99284; J2270

== ENCOUNTER 2022-03-10 10:30 | Emergency (ER) | payer OTHER ==
--- NOTE | 2022-03-10 11:06 | ERPHSYRPT ---
- History of Present Illness Historian: patient Exam Limitations: no limitations Patient Subjective Stated Complaint: C/O right sided abdominal pain that radiates through into her back. States pain started around 4pm yesterday. Indicates she started running a fever last night and started vomiting this morning. Triage Nursing Assessment: Patient ambulated back to ED without difficulties. No SOB. Patient alert and oriented and answering questions appropriately. Skin hot to touch, normal tone, dry. Bowel sounds hypoactive. Physician History: 21 yo wf w R sided abdominal pain x 1 day. Pain is 6/10, radiates to R CVA, and is sharp. She has had N/V wo diarrhea/melena/heamtochezia/dysuria/hematuria. Pt is currently on her period. Timing/Duration: yesterday Activities at Onset: rest Quality: sharpness, stabbing Abdominal Pain Onset Location: RUQ, RLQ Pain Radiation: flank (R flank/R CVA) Severity of Pain-Max: severe Severity of Pain-Current: moderate Modifying Factors: Improves With: nothing Previous symptoms: no prior history Allergies/Adverse Reactions: paroxetine [From Paxil] Allergy (Severe, Verified 03/10/22 10:46) "extreme anger" cephalexin monohydrate [From Keflex] Allergy (Intermediate, Verified 03/10/22 10:46) Hives guaifenesin [From Mucinex] Allergy (Intermediate, Verified 03/10/22 10:46) Hives lisdexamfetamine [From Vyvanse] Adverse Reaction (Unknown, Verified 03/10/22 10:46) "irritability and constantly clearing throat until it would swell" methylphenidate [From Concerta] Adverse Reaction (Unknown, Verified 03/10/22 10:46) "irritability and constantly clearing throat until it would swell" Hx Tetanus, Diphtheria Vaccination/Date Given: Yes Hx Influenza Vaccination/Date Given: No Hx Pneumococcal Vaccination/Date Given: No Immunizations Up to Date: Yes Travel Risk - International Travel Have you traveled outside of the country in past 3 weeks: No - Coronavirus Screening Are you exhibiting any of the following symptoms?: Yes Symptoms: Fever, Vomiting/Diarrhea Close contact with a COVID-19 positive Pt in past 14-21 Days: No - Vaccine Status Have you recieved a Covid-19 vaccination: No - Review of Systems Constitutional: No Symptoms, Fever Eyes: No Symptoms Ears, Nose, & Throat: No Symptoms Respiratory: No Symptoms Cardiac: No Symptoms Abdominal/Gastrointestinal: Abdominal Pain, Nausea, Vomiting, No Diarrhea, No Constipation, No Hematemesis, No Hematochezia, No Melena, No Dysphagia, No Appetite Changes Genitourinary Symptoms: No Symptoms Musculoskeletal: No Symptoms, Back Pain Skin: No Symptoms Neurological: No Symptoms Psychological: No Symptoms Endocrine: No Symptoms Hematologic/Lymphatic: No Symptoms Immunological/Allergic: No Symptoms - Past Medical History Pertinent Past Medical History: Yes Neurological History: Other ENT History: No Pertinent History Cardiac History: No Pertinent History Respiratory History: No Pertinent History Endocrine Medical History: No Pertinent History Musculoskeletal History: No Pertinent History GI Medical History: No Pertinent History History: No Pertinent History Psycho-Social History: Anxiety, Depression, Panic Disorder Female Reproductive Disorders: No Pertinent History Other Medical History: 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, 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 - Past Surgical History Past Surgical History: Yes Neuro Surgical History: No Pertinent History Cardiac: No Pertinent History Respiratory: No Pertinent History Gastrointestinal: No Pertinent History Genitourinary: No Pertinent History Musculoskeletal: No Pertinent History Female Surgical History: Other Other Surgical History: vaginal laproscopy - Social History Smoking Status: Former smoker How long have you smoked: 2yrs Exposure to second hand smoke: Yes Drug Use: none Patient Lives Alone: No Significant Family History: no pertinent family hx - Female History Hx Last Menstrual Period: NOW Hx Now: No (Unsure) - Nursing Vital Signs Nursing Vital Signs: Initial Vital Signs Temperature 98.6 F 03/10/22 10:47 Pulse Rate 100 H 03/10/22 10:47 Respiratory Rate 18 03/10/22 10:47 Blood Pressure 118/89 03/10/22 10:47 O2 Sat by Pulse Oximetry 99 03/10/22 10:47 Pain Scale Pain Intensity 4 Mildly tachy - Physical Exam General Appearance: no apparent distress Eye Exam: PERRL/EOMI, eyes nml inspection Ears, Nose, Throat Exam: normal ENT inspection, TMs normal, pharynx normal, moist mucous membranes, tonsillar exudate Neck Exam: normal inspection, non-tender, supple, No meningismus, No mass, No Brudzinski, No Kernig's Respiratory Exam: normal breath sounds, airway intact Cardiovascular Exam: regular rate/rhythm, capillary refill <2 sec, No murmur Gastrointestinal/Abdomen Exam: soft, normal bowel sounds, tenderness (Mild RUQ TTP> LLQ TTP/No guarding or rebound) Back Exam: normal inspection, normal range of motion, No CVA tenderness Extremity Exam: normal inspection, normal range of motion Neurologic Exam: alert, oriented x 3, cooperative, 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, normal mood/affect, nml cerebellar function, nml station & gait, sensation nml Skin Exam: normal color, warm, dry Lymphatic Exam: No adenopathy SpO2 Interpretation: normal SpO2: 99 O2 Delivery: Room Air - Course Nursing assessment & vital signs reviewed: Yes - CT Exams Abdomen/Pelvis CT Interpretation: Discussed w/radiologist (Nothing acute/No signs of acute appendicitis but not visualized well due to no IV contrast due to contrast shortage) Ordered Tests: Active Orders 24 hr Category Date Time Status IV Insertion STAT Care 03/10/22 10:59 Completed ABDOMEN AND PELVIS W/0 CONTRAS [CT] Stat Exams 03/10/22 12:33 Completed AMYLASE Stat Lab 03/10/22 11:00 Completed CBC W DIFF Stat Lab 03/10/22 11:00 Completed CMP Stat Lab 03/10/22 11:00 Completed CULTURE,URINE Stat Lab 03/10/22 11:01 Received HCG QUALITATIVE,SERUM Stat Lab 03/10/22 11:00 Completed LIPASE Stat Lab 03/10/22 11:00 Completed Manual Differential NC Stat Lab 03/10/22 11:00 Completed UA W/RFX CULTURE Stat Lab 03/10/22 11:01 Completed Medication Summary Discontinued Medications Generic Name Dose Route Start Last Admin Trade Name Marcelo PRN Reason Stop Dose Admin Ketorolac Tromethamine 15 mg 03/10/22 12:35 03/10/22 12:44 Ketorolac Tromethamine 30 Mg/Ml Inj IV 03/10/22 12:36 15 mg STAT ONE Administration Ketorolac Tromethamine Confirm 03/10/22 12:40 Ketorolac Tromethamine 30 Mg/Ml Inj Administered 03/10/22 12:41 Dose 30 mg .ROUTE .[facility] Lab/Rad Data: Laboratory Result Diagrams 03/10/22 11:00 03/10/22 11:00 Laboratory Results 03/10/22 03/10/22 03/10/22 Range/Units 11:01 11:00 11:00 WBC (4.0-10.5) x10^3/uL RBC (4.1-5.4) x10^6/uL Hgb (12.0-16.0) g/dL Hct (35-47) % MCV (78-100) fL MCH (26-32) pg MCHC (32-36) g/dL RDW (11.5-14.0) % Plt Count (150-450) x10^3/uL MPV (7.5-11.0) fL Segmented Neutrophils (36.0-66.0) % Band Neutrophils (0.0-2.0) % Lymphocytes (Manual) (24-44) % Monocytes (Manual) (0.0-12.0) % Platelet Estimate (NORMAL) RBC Morphology Sodium 140 (137-145) mmol/L Potassium 3.7 (3.5-5.1) mmol/L Chloride 105 (98-107) mmol/L Carbon Dioxide 24 (22-30) mmol/L Anion Gap 14.5 (5-15) MEQ/L BUN 12 (7-17) mg/dL Creatinine 0.73 (0.52-1.04) mg/dL Estimated GFR > 60.0 ML/MIN Glucose 90 (74-106) mg/dL Calcium 9.1 (8.4-10.2) mg/dL Total Bilirubin 1.00 (0.2-1.3) mg/dL AST 28 (14-36) U/L ALT 24 (0-35) U/L Alkaline Phosphatase 65 (38-126) U/L Serum Total Protein 7.9 (6.3-8.2) g/dL Albumin 4.6 (3.5-5.0) g/dL Amylase 84 (30-110) U/L Lipase 52 (23-300) U/L Serum , Qual NEGATIVE (Negative) Urinalys Dipstick Clnc MAIN LAB Urine Color YELLOW (YELLOW) Urine Appearance CLEAR (CLEAR) Urine pH 6.5 (5-6) Ur Specific [place] 1.025 (1.005-1.025) POC Urine Protein Conf TRACE (Negative) Urine Ketones NEGATIVE (NEGATIVE) Urine Nitrite NEGATIVE (NEGATIVE) Urine Bilirubin NEGATIVE (NEGATIVE) Urine Urobilinogen 0.2 (0-1) mg/dL Urine Leukocytes NEGATIVE (NEGATIVE) Urine WBC (Auto) 0-2 (0-5) /HPF Urine RBC (Auto) 16-25 (0-2) /HPF U Epithel Cells (Auto) RARE (FEW) /HPF Urine Bacteria (Auto) RARE (NEGATIVE) /HPF Urine RBC MODERATE (0-5) Remberto/ul Urine Mucus (Auto) MODERATE (NEGATIVE) /HPF Ur Culture Indicated? YES Urine Glucose NEGATIVE (NEGATIVE) mg/dL 03/10/22 Range/Units 11:00 WBC 2.7 L (4.0-10.5) x10^3/uL RBC 4.41 (4.1-5.4) x10^6/uL Hgb 13.7 (12.0-16.0) g/dL Hct 41.1 (35-47) % MCV 93.2 (78-100) fL MCH 31.1 (26-32) pg MCHC 33.3 (32-36) g/dL RDW 12.6 (11.5-14.0) % Plt Count 193 (150-450) x10^3/uL MPV 9.7 (7.5-11.0) fL Segmented Neutrophils 43 (36.0-66.0) % Band Neutrophils 1 (0.0-2.0) % Lymphocytes (Manual) 50 H (24-44) % Monocytes (Manual) 6 (0.0-12.0) % Platelet Estimate NORMAL (NORMAL) RBC Morphology NORMAL Sodium (137-145) mmol/L Potassium (3.5-5.1) mmol/L Chloride (98-107) mmol/L Carbon Dioxide (22-30) mmol/L Anion Gap (5-15) MEQ/L BUN (7-17) mg/dL Creatinine (0.52-1.04) mg/dL Estimated GFR ML/MIN Glucose (74-106) mg/dL Calcium (8.4-10.2) mg/dL Total Bilirubin (0.2-1.3) mg/dL AST (14-36) U/L ALT (0-35) U/L Alkaline Phosphatase (38-126) U/L Serum Total Protein (6.3-8.2) g/dL Albumin (3.5-5.0) g/dL Amylase (30-110) U/L Lipase (23-300) U/L Serum , Qual (Negative) Urinalys Dipstick Clnc Urine Color (YELLOW) Urine Appearance (CLEAR) Urine pH (5-6) Ur Specific [place] (1.005-1.025) POC Urine Protein Conf (Negative) Urine Ketones (NEGATIVE) Urine Nitrite (NEGATIVE) Urine Bilirubin (NEGATIVE) Urine Urobilinogen (0-1) mg/dL Urine Leukocytes (NEGATIVE) Urine WBC (Auto) (0-5) /HPF Urine RBC (Auto) (0-2) /HPF U Epithel Cells (Auto) (FEW) /HPF Urine Bacteria (Auto) (NEGATIVE) /HPF Urine RBC (0-5) Remberto/ul Urine Mucus (Auto) (NEGATIVE) /HPF Ur Culture Indicated? Urine Glucose (NEGATIVE) mg/dL - Progress Progress: improved Progress Note: 03/10/22 14:14 Pain improved w 15mg IV Toradol CT results reviewed w pt 03/10/22 15:49 CT wo evidence of acute appendicitis, but appendix not visualized. Pt's pain better after Toradol but advised to return to ER for increasing pain pain or tem perature greater than 100.[address] w IV contrast. Pt advised of leukopenia. Counseled pt/family regarding: lab results, diagnosis, need for follow-up, rad results - Departure Departure Disposition: Home Clinical Impression: Abdominal pain, Leukopenia Condition: Stable Critical Care Time: No Referrals: ARTEMIO TAMEZ MD [Primary Care Provider] - Follow up/PCP as directed Instructions: Severe Abdominal Pain, Adult (DC) Additional Instructions: Return to ER for increasing pain or temperature greater than 100.5 Follow up with your family Prescriptions: Dicyclomine HCl 20 mg [Bentyl 20 mg] 20 mg PO QIDPRN PRN #10 tablet PRN Reason: Pain
[2022-03-10 11:18] LABS: Hematocrit 41.1 % (35-47); Hemoglobin 13.7 g/dL (12.0-16.0); Mean Cell Volume 93.2 fL (78-100); Mean Corpuscular Hemoglobin 31.1 pg (26-32); Mean Corpuscular Hgb Concent. 33.3 g/dL (32-36); Mean Platelet Volume 9.7 fL (7.5-11.0); Platelet Count 193 x10^3/uL (150-450); Red Blood Count 4.41 x10^6/uL (4.1-5.4); Red Cell Distribution Width 12.6 % (11.5-14.0); White Blood Count 2.7 x10^3/uL (4.0-10.5)
[2022-03-10 11:24] LABS: ALBUMIN 4.6 g/dL (3.5-5.0); ALKALINE PHOSPHATASE 65 U/L (38-126); AMYLASE 84 U/L (30-110); ANION GAP 14.5 MEQ/L (5-15); BLOOD UREA NITROGEN 12 mg/dL (7-17); CHLORIDE 105 mmol/L (98-107); Calcium 9.1 mg/dL (8.4-10.2); Carbon Dioxide 24 mmol/L (22-30); Creatinine 1 0.73 mg/dL (0.52-1.04); EST GLOMERULAR FILTRATION RATE > 60.0 ML/MIN; Glucose 90 mg/dL (74-106); LIPASE 52 U/L (23-300); Potassium 3.7 mmol/L (3.5-5.1); SGOT/AST 28 U/L (14-36); SGPT/ALT 24 U/L (0-35); SODIUM 140 mmol/L (137-145); Total Protein 7.9 g/dL (6.3-8.2)
[2022-03-10 11:31] LABS: Appearance CLEAR (CLEAR); Bilirubin NEGATIVE (NEGATIVE); Glucose NEGATIVE (NEGATIVE); Ketones NEGATIVE (NEGATIVE); RBC MODERATE Ery/ul (0-5); Specific Gravity 1.025 (1.005-1.025)
[2022-03-10 11:32] LABS: Dipstick done @ ? MAIN LAB; Nitrite NEGATIVE (NEGATIVE); Ph 6.5 (5-6); Protein,Urine Dip TRACE (Negative); Urobilinogen 0.2 mg/dL (0-1)
[2022-03-10 11:37] LABS: Bacteria RARE /HPF (NEGATIVE); Epithelial Cells RARE /HPF (FEW); Mucus MODERATE /HPF (NEGATIVE); Urine Cultured Indicated? YES; WBC 0-2 /HPF (0-5)
[2022-03-10] MEDS ORDERED: TORAdol 30 mg Injection IV ONE (12:35)
[2022-03-10] MEDS ORDERED: TORAdol 30 mg Injection ONE (12:40)
[2022-03-10 13:49] LABS: BAND 1 % (0.0-2.0); Lymphocytes 50 % (24-44); Monocyte 6 % (0.0-12.0); Total Cells Counted 100
[2022-03-10 13:50] LABS: Platelet Estimate NORMAL (NORMAL)
[2022-03-10 14:05] VITALS: BP 115/74; PULSE 70
--- NOTE | 2022-03-10 14:10 | XRAY ---
Exam: CT of the abdomen and pelvis without IV contrast. CTDI: 3.07 mGy Comparison: CT of the abdomen and pelvis without IV contrast from 02/03/2022. Indication: 21-year-old female with right-sided abdominal pain/right lower quadrant pain for 2 days. Technique: Non-IV contrast axial images were obtained through the abdomen and pelvis. Reconstructed coronal and sagittal images were created and reviewed. Findings: The lung bases are clear. The heart size is normal. The liver and spleen are remarkable for several scattered small calcified granulomas. No gross mass or intrahepatic biliary duct distention is seen within the liver. No splenic mass is seen. Assessment is more limited without IV contrast. The gallbladder reveals no dense calcifications within it. The patient has a thin body habitus resulting in crowding of normal soft tissue abdominal and pelvic structures. The pancreas reveals no definite abnormality. The adrenal glands are normal. Both kidneys appear of normal size and reveal no evidence of calculi or hydronephrosis. No gross renal mass is seen. The abdominal aorta is of normal diameter. No abnormal retroperitoneal lymphadenopathy is evident. There is no free intraperitoneal air or ventral abdominal wall hernia. The bowel is not distended. I see no evidence of bowel obstruction. Prior fluid-filled small bowel on 02/03/2022 is no longer seen. Some scattered stool is seen within the colon. Precise delineation of the appendix is difficult because of the patient's thin body habitus and the lack of IV or oral contrast. However, I see no definite findings to suggest appendicitis within the right lower quadrant. The uterus is retroflexed. The pelvic adnexa appear unremarkable. There is a suggestion of a tiny amount of posterior free fluid within the pelvis, presumably physiologic. A vaginal tampon is seen in place. The urinary bladder is partially distended and appears grossly unremarkable. No abnormal pelvic lymphadenopathy is seen. The skeleton reveals no fracture or other aggressive process. Some vertebral endplate Schmorl's nodes are seen within the lower thoracic and upper lumbar spine representing no change. Impression: 1. The appendix is difficult to positively identify because of her thin body habitus crowding normal soft tissue structures within the pelvis/right lower quadrant and the lack of IV and oral contrast. However, I see no convincing findings to suggest acute appendicitis within the right lower quadrant. 2. I again see a retroflexed uterus. A vaginal tampon is noted. The lamina hasn't yet I have timei 3. No acute intra-abdominal or pelvic process is seen.
[2022-03-10 14:17] VITALS: O2SAT 99
== END 2022-03-10 14:22 | disposition home or self-care (01) ==
LOC: ED 10:30
DX: R10.11 Right upper quadrant pain (principal); R10.31 Right lower quadrant pain; D72.819 Decreased white blood cell count, unspecified; R11.2 Nausea with vomiting, unspecified; Z28.310 Unvaccinated for COVID-19
CPT/HCPCS: 36000; 36415; 74176; 80053; 81015; 82150; 83690; 84703; 85025; 87086; 96374; 99284; J1885

== ENCOUNTER 2022-04-19 08:07 | Emergency (ER) | payer OTHER ==
[2022-04-19] MEDS ORDERED: Zofran 4 MG/2 ML VIAL IV ONE (08:20)
[2022-04-19] MEDS ORDERED: Sodium Chloride 0.9% 1000 ML 1,000 ML IV STA (08:20)
[2022-04-19 08:31] LABS: Absolute Neutrophil Ct (ANC) 2.69 x10^3/uL (1.4-6.9); Basophil (Absolute #) 0.04 x10^3/uL (0-0.4); Eosinophil % 3.5 % (0.00-5.0); Eosinophil (Absolute #) 0.21 x10^3/uL (0-0.5); Hematocrit 40.1 % (35-47); Hemoglobin 13.7 g/dL (12.0-16.0); Lymphocyte (Absolute #) 2.58 x10^3/uL (1.0-4.6); Lymphocytes % 43.5 % (24.0-44.0); Mean Cell Volume 91.6 fL (78-100); Mean Corpuscular Hemoglobin 31.3 pg (26-32); Mean Corpuscular Hgb Concent. 34.2 g/dL (32-36); Mean Platelet Volume 9.7 fL (7.5-11.0); Monocytes % 6.7 % (0.0-12.0); Neutrophil % 45.4 % (36.0-66.0); Platelet Count 237 x10^3/uL (150-450); Red Blood Count 4.38 x10^6/uL (4.1-5.4); Red Cell Distribution Width 12.3 % (11.5-14.0); White Blood Count 5.9 x10^3/uL (4.0-10.5)
[2022-04-19] MEDS ORDERED: TYLENOL 325 MG PO ONE (08:42)
[2022-04-19] MEDS ORDERED: Zofran 4 MG/2 ML VIAL ONE (08:43)
[2022-04-19] MEDS ORDERED: Sodium Chloride 0.9% 1000 ML 1,000 ML ONE (08:44)
[2022-04-19] MEDS ORDERED: TYLENOL 325 MG ONE (08:44)
[2022-04-19 08:45] LABS: ALBUMIN 4.6 g/dL (3.5-5.0); ALKALINE PHOSPHATASE 67 U/L (38-126); ANION GAP 12.7 MEQ/L (5-15); BLOOD UREA NITROGEN 8 mg/dL (7-17); CHLORIDE 106 mmol/L (98-107); Calcium 8.8 mg/dL (8.4-10.2); Carbon Dioxide 21 mmol/L (22-30); Creatinine 1 0.62 mg/dL (0.52-1.04); EST GLOMERULAR FILTRATION RATE > 60.0 ML/MIN; Glucose 115 mg/dL (74-106); Potassium 3.7 mmol/L (3.5-5.1); SGOT/AST 25 U/L (14-36); SGPT/ALT 19 U/L (0-35); SODIUM 136 mmol/L (137-145); Total Protein 7.6 g/dL (6.3-8.2)
--- NOTE | 2022-04-19 08:45 | ERPHSYRPT ---
- History of Present Illness Time Seen by Provider: 04/19/22 08:25 Source: patient Exam Limitations: no limitations Patient Subjective Stated Complaint: Pt c/o of N&V, diarrhea, stomach pains, and headache, found out she was last week Triage Nursing Assessment: Pt brought self to the ER, vitals wnl, rates abdominal pain as 4/10, unable to hold anything down for 2 days, vomiting and diarrhea, skin n/w/d, took home covid test and it was negative, found out she was last week and hasn't felt good since Physician History: Is a 21-year-old female A0 presents to our ED for evaluation of nausea vomiting diarrhea and a headache. Patient states she just found out last week that she was . She has an appointment scheduled with Dr. Sullivan but has yet to see him. Patient complains of nausea vomiting diarrhea and a headache. Symptoms have been ongoing since she is she found out she was . Unable to tolerate p.o. No rash. No trauma. No fever. No vaginal discharge. Symptoms are constant. Symptoms are moderate in intensity. No specific worsening improving factors. Patient states she is otherwise healthy. She voices no other complaints or concerns at this time. Portions of this note were created with voice recognition technology. There may be grammatical, spelling, punctuation or sound alike errors Timing/Duration: week(s) (1 week) Severity: moderate Modifying Factors: Improves With: nothing Associated Symptoms: No shortness of breath, No diaphoresis, No cough, No chills, No chest pain, No fever, No syncope, No seizure Allergies/Adverse Reactions: paroxetine [From Paxil] Allergy (Severe, Verified 04/19/22 08:25) "extreme anger" cephalexin monohydrate [From Keflex] Allergy (Intermediate, Verified 04/19/22 08:25) Hives guaifenesin [From Mucinex] Allergy (Intermediate, Verified 04/19/22 08:25) Hives lisdexamfetamine [From Vyvanse] Adverse Reaction (Unknown, Verified 04/19/22 08:25) "irritability and constantly clearing throat until it would swell" methylphenidate [From Concerta] Adverse Reaction (Unknown, Verified 04/19/22 08:25) "irritability and constantly clearing throat until it would swell" Hx Tetanus, Diphtheria Vaccination/Date Given: Yes Hx Influenza Vaccination/Date Given: No Hx Pneumococcal Vaccination/Date Given: No Travel Risk - International Travel Have you traveled outside of the country in past 3 weeks: No - Coronavirus Screening Are you exhibiting any of the following symptoms?: Yes Symptoms: Vomiting/Diarrhea Close contact with a COVID-19 positive Pt in past 14-21 Days: No - Vaccine Status Have you recieved a Covid-19 vaccination: No - Review of Systems Constitutional: No Symptoms, No Fever, No Chills Eyes: No Symptoms Ears, Nose, & Throat: No Symptoms Respiratory: No Symptoms, No Cough, No Dyspnea Cardiac: No Symptoms, No Chest Pain, No Edema, No Syncope Abdominal/Gastrointestinal: No Symptoms, No Abdominal Pain, No Nausea, No Vomiting, No Diarrhea Genitourinary Symptoms: No Symptoms, No Dysuria Musculoskeletal: No Symptoms, No Back Pain, No Neck Pain Skin: No Symptoms, No Rash Neurological: No Symptoms, No Dizziness, No Focal Weakness, No Sensory Changes Psychological: No Symptoms Endocrine: No Symptoms Hematologic/Lymphatic: No Symptoms Immunological/Allergic: No Symptoms All Other Systems: Reviewed and Negative - Past Medical History Pertinent Past Medical History: Yes Neurological History: Other ENT History: No Pertinent History Cardiac History: No Pertinent History Respiratory History: No Pertinent History Endocrine Medical History: No Pertinent History Musculoskeletal History: No Pertinent History GI Medical History: No Pertinent History History: No Pertinent History Psycho-Social History: Anxiety, Depression, Panic Disorder Female Reproductive Disorders: No Pertinent History Other Medical History: 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, 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 - Past Surgical History Past Surgical History: Yes Neuro Surgical History: No Pertinent History Cardiac: No Pertinent History Respiratory: No Pertinent History Gastrointestinal: No Pertinent History Genitourinary: No Pertinent History Musculoskeletal: No Pertinent History Female Surgical History: Other Other Surgical History: vaginal laproscopy - Social History Smoking Status: Former smoker How long have you smoked: 2yrs Exposure to second hand smoke: Yes Drug Use: none Patient Lives Alone: No Significant Family History: no pertinent family hx - Female History Hx Now: Yes (unknown gestation) - Nursing Vital Signs Nursing Vital Signs: Initial Vital Signs Temperature 98.6 F 04/19/22 08:14 Pulse Rate 81 04/19/22 08:14 Blood Pressure 134/52 04/19/22 08:14 O2 Sat by Pulse Oximetry 98 04/19/22 08:14 Pain Scale Pain Intensity 5 - Physical Exam General Appearance: no apparent distress, alert Eye Exam: PERRL/EOMI, eyes nml inspection Ears, Nose, Throat Exam: normal ENT inspection, TMs normal, pharynx normal, moist mucous membranes Neck Exam: normal inspection, non-tender, supple, full range of motion Respiratory Exam: normal breath sounds, lungs clear, airway intact, No respiratory distress Cardiovascular Exam: regular rate/rhythm, normal heart sounds, normal peripheral pulses Gastrointestinal/Abdomen Exam: soft, normal bowel sounds, No tenderness, No mass Pelvic Exam: normal external exam, vaginal discharge (Scant white vaginal discharge), No adnexal tenderness, No adnexal mass, No cervical motion tenderness, No vaginal bleeding, No uterine tenderness Back Exam: normal inspection, normal range of motion, No CVA tenderness, No vertebral tenderness Extremity Exam: normal inspection, normal range of motion, pelvis stable Neurologic Exam: alert, oriented x 3, cooperative, normal mood/affect, nml cerebellar function, nml station & gait, sensation nml, No motor deficits Skin Exam: normal color, warm, dry, No rash Lymphatic Exam: No adenopathy SpO2 Interpretation: normal SpO2: 98 O2 Delivery: Room Air - Course Nursing assessment & vital signs reviewed: Yes - Radiology Ultrasound Exam OB Ultrasound: discussed w/radiologist (Per [employer] fetus is 5 weeks 3 days. No pole or heart tones observed at this time due 2 early gestational age) Ordered Tests: Active Orders 24 hr Category Date Time Status IV Insertion STAT Care 04/19/22 08:20 Active OB <14 WKS 1ST GESTATION [US] Stat Exams 04/19/22 10:19 Completed CBC W DIFF Stat Lab 04/19/22 08:26 Completed CMP Stat Lab 04/19/22 08:26 Completed HCG, Quantitative (Inhouse) Stat Lab 04/19/22 08:16 Completed UA W/RFX CULTURE Stat Lab 04/19/22 08:42 Completed Wet Prep Stat Lab 04/19/22 08:42 Completed Medication Summary Discontinued Medications Generic Name Dose Route Start Last Admin Trade Name Freq PRN Reason Stop Dose Admin Acetaminophen 975 mg 04/19/22 08:42 04/19/22 08:47 Acetaminophen 325 Mg Tablet PO 04/19/22 08:43 975 mg STAT ONE Administration Acetaminophen Confirm 04/19/22 08:44 Acetaminophen 325 Mg Tablet Administered 04/19/22 08:45 Dose 975 mg .ROUTE .STK-MED ONE Sodium Chloride 1,000 mls @ 999 mls/hr 04/19/22 08:20 04/19/22 10:15 Sodium Chloride 0.9% 1000 Ml IV 04/19/22 09:20 Infused .Q1H1M STA Infusion Sodium Chloride Confirm 04/19/22 08:44 Sodium Chloride 0.9% 1000 Ml Administered 04/19/22 08:45 Dose 1,000 mls @ ud .ROUTE .STK-MED ONE Ondansetron HCl 4 mg 04/19/22 08:20 04/19/22 08:46 Ondansetron Hcl 4 Mg/2 Ml Vial IV 04/19/22 08:21 4 mg STAT ONE Administration Ondansetron HCl Confirm 04/19/22 08:43 Ondansetron Hcl 4 Mg/2 Ml Vial Administered 04/19/22 08:44 Dose 4 mg .ROUTE .STK-MED ONE Lab/Rad Data: Laboratory Result Diagrams 04/19/22 08:26 04/19/22 08:26 Laboratory Results 04/19/22 04/19/22 04/19/22 Range/Units Unknown 08:42 08:42 WBC (4.0-10.5) x10^3/uL RBC (4.1-5.4) x10^6/uL Hgb (12.0-16.0) g/dL Hct (35-47) % MCV (78-100) fL MCH (26-32) pg MCHC (32-36) g/dL RDW (11.5-14.0) % Plt Count (150-450) x10^3/uL MPV (7.5-11.0) fL Gran % (36.0-66.0) % Immature Gran % (Auto) (0.00-0.4) % Nucleat RBC Rel Count (0.00-0.1) % Eos # (Auto) (0-0.5) x10^3/uL Immature Gran # (Auto) (0.00-0.03) x10^3u/L Absolute Lymphs (auto) (1.0-4.6) x10^3/uL Absolute Monos (auto) (0.0-1.3) x10^3/uL Absolute Nucleated RBC (0.00-0.01) x10^3u/L Lymphocytes % (24.0-44.0) % Monocytes % (0.0-12.0) % Eosinophils % (0.00-5.0) % Basophils % (0.0-0.4) % Absolute Granulocytes (1.4-6.9) x10^3/uL Basophils # (0-0.4) x10^3/uL Sodium (137-145) mmol/L Potassium (3.5-5.1) mmol/L Chloride (98-107) mmol/L Carbon Dioxide (22-30) mmol/L Anion Gap (5-15) MEQ/L BUN (7-17) mg/dL Creatinine (0.52-1.04) mg/dL Estimated GFR ML/MIN Glucose (74-106) mg/dL Calcium (8.4-10.2) mg/dL Total Bilirubin (0.2-1.3) mg/dL AST (14-36) U/L ALT (0-35) U/L Alkaline Phosphatase (38-126) U/L Serum Total Protein (6.3-8.2) g/dL Albumin (3.5-5.0) g/dL Beta HCG, Quant mIU/ml Urinalys Dipstick Clnc MAIN LAB Urine Color YELLOW (YELLOW) Urine Appearance CLEAR (CLEAR) Urine pH 7.0 (5-6) Ur Specific Tatum 1.025 (1.005-1.025) POC Urine Protein Conf NEGATIVE (Negative) Urine Ketones MODERATE-40 (NEGATIVE) Urine Nitrite NEGATIVE (NEGATIVE) Urine Bilirubin NEGATIVE (NEGATIVE) Urine Urobilinogen 0.2 (0-1) mg/dL Urine Leukocytes NEGATIVE (NEGATIVE) Urine WBC (Auto) NONE (0-5) /HPF Urine RBC (Auto) 0-2 (0-2) /HPF U Epithel Cells (Auto) RARE (FEW) /HPF Urine Bacteria (Auto) NONE (NEGATIVE) /HPF Urine RBC TRACE-INTACT (0-5) Remberto/ul Urine Mucus (Auto) SLIGHT (NEGATIVE) /HPF Ur Culture Indicated? NO Urine Glucose NEGATIVE (NEGATIVE) mg/dL WBC (Wet Prep) Rare RBC (Wet Prep) Rare Epi Cells (Wet Prep) Few Bacteria (Wet Prep) Few Clue Cells (Wet Prep) None Seen Trichomonas (Wet Prep) None Seen Budding Yeast (Wet Prp) None Seen Chlamydia DNA Probe NOT DETECTED (NEGATIVE) N.gonorrhoeae DNA Probe NOT DETECTED (NEGATIVE) 04/19/22 04/19/22 04/19/22 Range/Units 08:26 08:26 08:16 WBC 5.9 (4.0-10.5) x10^3/uL RBC 4.38 (4.1-5.4) x10^6/uL Hgb 13.7 (12.0-16.0) g/dL Hct 40.1 (35-47) % MCV 91.6 (78-100) fL MCH 31.3 (26-32) pg MCHC 34.2 (32-36) g/dL RDW 12.3 (11.5-14.0) % Plt Count 237 (150-450) x10^3/uL MPV 9.7 (7.5-11.0) fL Gran % 45.4 (36.0-66.0) % Immature Gran % (Auto) 0.2 (0.00-0.4) % Nucleat RBC Rel Count 0.0 (0.00-0.1) % Eos # (Auto) 0.21 (0-0.5) x10^3/uL Immature Gran # (Auto) 0.01 (0.00-0.03) x10^3u/L Absolute Lymphs (auto) 2.58 (1.0-4.6) x10^3/uL Absolute Monos (auto) 0.40 (0.0-1.3) x10^3/uL Absolute Nucleated RBC 0.00 (0.00-0.01) x10^3u/L Lymphocytes % 43.5 (24.0-44.0) % Monocytes % 6.7 (0.0-12.0) % Eosinophils % 3.5 (0.00-5.0) % Basophils % 0.7 (0.0-0.4) % Absolute Granulocytes 2.69 (1.4-6.9) x10^3/uL Basophils # 0.04 (0-0.4) x10^3/uL Sodium 136 L (137-145) mmol/L Potassium 3.7 (3.5-5.1) mmol/L Chloride 106 (98-107) mmol/L Carbon Dioxide 21 L (22-30) mmol/L Anion Gap 12.7 (5-15) MEQ/L BUN 8 (7-17) mg/dL Creatinine 0.62 (0.52-1.04) mg/dL Estimated GFR > 60.0 ML/MIN Glucose 115 H (74-106) mg/dL Calcium 8.8 (8.4-10.2) mg/dL Total Bilirubin 0.80 (0.2-1.3) mg/dL AST 25 (14-36) U/L ALT 19 (0-35) U/L Alkaline Phosphatase 67 (38-126) U/L Serum Total Protein 7.6 (6.3-8.2) g/dL Albumin 4.6 (3.5-5.0) g/dL Beta HCG, Quant 6510.8 mIU/ml Urinalys Dipstick Clnc Urine Color (YELLOW) Urine Appearance (CLEAR) Urine pH (5-6) Ur Specific Tatum (1.005-1.025) POC Urine Protein Conf (Negative) Urine Ketones (NEGATIVE) Urine Nitrite (NEGATIVE) Urine Bilirubin (NEGATIVE) Urine Urobilinogen (0-1) mg/dL Urine Leukocytes (NEGATIVE) Urine WBC (Auto) (0-5) /HPF Urine RBC (Auto) (0-2) /HPF U Epithel Cells (Auto) (FEW) /HPF Urine Bacteria (Auto) (NEGATIVE) /HPF Urine RBC (0-5) Remberto/ul Urine Mucus (Auto) (NEGATIVE) /HPF Ur Culture Indicated? Urine Glucose (NEGATIVE) mg/dL WBC (Wet Prep) RBC (Wet Prep) Epi Cells (Wet Prep) Bacteria (Wet Prep) Clue Cells (Wet Prep) Trichomonas (Wet Prep) Budding Yeast (Wet Prp) Chlamydia DNA Probe (NEGATIVE) N.gonorrhoeae DNA Probe (NEGATIVE) - Progress Progress: improved Progress Note: Patient reassessed. She is well. Patient tolerated p.o. Work-up essentially unremarkable. UA negative for UTI. Case discussed with Dr. Sullivan who will follow up as an outpatient. A prescription for Zofran was forwarded to patient's pharmacy. Patient currently has an appointment scheduled with Dr. Sullivan. Patient states is ready for discharge. She voices no other complaints or concerns at this time. Portions of this note were created with voice recognition technology. There may be grammatical, spelling, punctuation or sound alike errors 04/19/22 11:[address] Grace Will see patient in: hospital (observation) Counseled pt/family regarding: lab results, diagnosis, need for follow-up, rad results - Departure Departure Disposition: Home Clinical Impression: Nausea and vomiting Condition: Stable Critical Care Time: No Referrals: ARTEMIO TAMEZ MD [Primary Care Provider] - Follow up/PCP as directed Additional Instructions: Discharge/Care Plan ADAM VILLALOBOS was seen on 04/19/22 in the Emergency Room. The patient was counseled regarding Diagnosis,Lab results, Imaging studies, need for follow up and when to return to the Emergency Room. Prescriptions given: Discharge Note I have spoken with the patient and/or caregivers. I have explained the patient's condition, diagnosis and treatment plan based on the information available to me at this time. I have answered the patient's and/or caregiver's questions and addressed any concerns. The patient and/or caregivers have as good understanding of the patient's diagnosis, condition and treatment plan as can be expected at this point. The vital signs have been stable. The patient's condition is stable and appropriate for discharge from the emergency department. The patient will pursue further outpatient evaluation with the primary care physician or other designated or consulting physician as outlined in the discharge instructions. The patient and/or caregivers are agreeable to this plan of care and follow-up instructions have been explained in detail. The patient and/or caregivers have received these instruction. The patient/and or caregivers are aware that any significant change in condition or worsening of symptoms should prompt an immediate return to this or the closest emergency department or call 911. Prescriptions: Ondansetron ODT 4 MG [Zofran Odt 4 mg] 4 mg PO Q6H PRN PRN #10 tablet PRN Reason: Vomiting
[2022-04-19 09:32] LABS: Epithelial Cells RARE /HPF (FEW); Mucus SLIGHT /HPF (NEGATIVE); RBC 0-2 /HPF (0-2)
[2022-04-19 09:35] LABS: Bacteria Few; Clue Cells None Seen; Red Blood Cells Rare; Trichomonas None Seen; White Blood Cells Rare; Yeast None Seen
[2022-04-19 09:40] LABS: Appearance CLEAR (CLEAR); Bilirubin NEGATIVE (NEGATIVE); Dipstick done @ ? MAIN LAB; Glucose NEGATIVE (NEGATIVE); Ketones MODERATE-40 (NEGATIVE); Nitrite NEGATIVE (NEGATIVE); Protein,Urine Dip NEGATIVE (Negative); RBC TRACE-INTACT Ery/ul (0-5); Specific Gravity 1.025 (1.005-1.025); Urobilinogen 0.2 mg/dL (0-1)
[2022-04-19 09:41] LABS: Urine Cultured Indicated? NO
[2022-04-19 10:42] LABS: CHLAMYDIA DNA NOT DETECTED (NEGATIVE); GC DNA Probe NOT DETECTED (NEGATIVE)
--- NOTE | 2022-04-19 11:39 | XRAY ---
Indication: Weakness. Ectopic . Two-dimensional transvaginal early OB ultrasound performed. Comparison: None for this . Uterus retroflexed with single intrauterine gestational sac and yolk sac. Mean sac diameter 0.79 cm corresponding to 5 weeks 3 days. No pole/heart tones presumed early . Left and right ovaries are sonographically unremarkable. No suspicious adnexal mass. Small cul-de-sac fluid presumed physiologic from rupture/leaking cyst. Impression: Single intrauterine gestational sac measuring 5 weeks 3 days. No pole/heart tones presumed early . Correlate with serial beta hCG and follow-up sonogram regarding viability. Small physiologic cul-de-sac fluid.
[2022-04-19 11:56] VITALS: O2SAT 98
[2022-04-19 12:05] VITALS: BP 107/58; PULSE 62
== END 2022-04-19 12:08 | disposition home or self-care (01) ==
LOC: ED 08:07
DX: O21.9 Vomiting of pregnancy, unspecified (principal); Z3A.01 Less than 8 weeks gestation of pregnancy; R19.7 Diarrhea, unspecified; R51.9 Headache, unspecified; Z28.310 Unvaccinated for COVID-19
CPT/HCPCS: 36000; 36415; 76801; 80053; 81015; 84702; 85025; 87210; 87491; 87591; 96360; 96374; 99284; J2405; A9270-GY

== ENCOUNTER 2022-04-28 15:41 | Emergency (ER) | payer OTHER ==
[2022-04-28] MEDS ORDERED: Sodium Chloride 0.9% 1000 ML 1,000 ML IV STA (16:13)
[2022-04-28] MEDS ORDERED: TYLENOL 325 MG PO STA (16:13)
[2022-04-28] MEDS ORDERED: Zofran 4 MG/2 ML VIAL IV ONE (16:13)
[2022-04-28] MEDS ORDERED: Zofran 4 MG/2 ML VIAL ONE (16:16)
[2022-04-28] MEDS ORDERED: Sodium Chloride 0.9% 1000 ML 1,000 ML ONE (16:17)
[2022-04-28] MEDS ORDERED: TYLENOL 325 MG ONE (16:17)
--- NOTE | 2022-04-28 16:24 | ERPHSYRPT ---
- History of Present Illness Time Seen by Provider: 04/28/22 16:11 Source: patient Exam Limitations: no limitations Patient Subjective Stated Complaint: Seizure Triage Nursing Assessment: Patient ambulated back to ED and transferred self to bed. Patient A+O X 3. Patient's skin pink, warm and dry. Patient states she is 6 weeks and has a hx of silent seizures. Patient states she was standing and started to feel weird and got dizzy, nauseated and sat down. Patient states she came to and was dizzy, eyes wouldn't focus, brain was foggy. Patient also complains of body aches 5/10. Physician History: 21 years old 3 para 2 at almost 6 weeks gestation presented in the ER with chief complaint of near syncopal episode. Patient reports she was standing at work, started to feel dizzy lightheaded, weakness all over, she sat down and put her head on the table until her coworker arrived. She did not lose consciousness. Denies any palpitations, chest pain or shortness of breath before or after the episode. She was feeling weak fatigued tired all over. Denies any focal numbness tingling or weakness. No visual disturbance or difficulty speech. Patient does report having history of seizures in the past and is concerned that she might have an episode of seizure. No shaking noticed. No definite postictal period. She did see her OB this morning with routine work-up done. Does have some upper abdominal discomfort but denies any vaginal bleeding discharge. She feels a little nauseated after this episode but have not vomited. Allergies/Adverse Reactions: paroxetine [From Paxil] Allergy (Severe, Verified 04/28/22 15:45) "extreme anger" cephalexin monohydrate [From Keflex] Allergy (Intermediate, Verified 04/28/22 15:45) Hives guaifenesin [From Mucinex] Allergy (Intermediate, Verified 04/28/22 15:45) Hives lisdexamfetamine [From Vyvanse] Adverse Reaction (Unknown, Verified 04/28/22 15:45) "irritability and constantly clearing throat until it would swell" methylphenidate [From Concerta] Adverse Reaction (Unknown, Verified 04/28/22 15:45) "irritability and constantly clearing throat until it would swell" Hx Tetanus, Diphtheria Vaccination/Date Given: Yes Hx Influenza Vaccination/Date Given: No Hx Pneumococcal Vaccination/Date Given: No Travel Risk - International Travel Have you traveled outside of the country in past 3 weeks: No - Coronavirus Screening Are you exhibiting any of the following symptoms?: No Close contact with a COVID-19 positive Pt in past 14-21 Days: No - Vaccine Status Have you recieved a Covid-19 vaccination: No - Review of Systems Constitutional: Fatigue, Weakness Eyes: No Symptoms Ears, Nose, & Throat: No Symptoms Respiratory: No Symptoms Cardiac: No Symptoms Abdominal/Gastrointestinal: Abdominal Pain, Nausea Genitourinary Symptoms: No Symptoms Musculoskeletal: No Symptoms Skin: No Symptoms Neurological: No Focal Weakness, No Headache Psychological: No Symptoms Endocrine: No Symptoms Hematologic/Lymphatic: No Symptoms Immunological/Allergic: No Symptoms - Past Medical History Pertinent Past Medical History: Yes Neurological History: Other ENT History: No Pertinent History Cardiac History: No Pertinent History Respiratory History: No Pertinent History Endocrine Medical History: No Pertinent History Musculoskeletal History: No Pertinent History GI Medical History: No Pertinent History History: No Pertinent History Psycho-Social History: Anxiety, Depression, Panic Disorder Female Reproductive Disorders: No Pertinent History Other Medical History: 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, 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 - Past Surgical History Past Surgical History: Yes Neuro Surgical History: No Pertinent History Cardiac: No Pertinent History Respiratory: No Pertinent History Gastrointestinal: No Pertinent History Genitourinary: No Pertinent History Musculoskeletal: No Pertinent History Female Surgical History: Other Other Surgical History: vaginal laproscopy - Social History Smoking Status: Former smoker How long have you smoked: 2yrs Exposure to second hand smoke: Yes Drug Use: none Patient Lives Alone: No Significant Family History: no pertinent family hx - Female History Hx Last Menstrual Period: end february Hx Now: Yes Expected Date of Delivery: 12/21/22 - Nursing Vital Signs Nursing Vital Signs: Initial Vital Signs Temperature 97.9 F 04/28/22 15:52 Pulse Rate 79 04/28/22 15:52 Respiratory Rate 18 04/28/22 15:52 Blood Pressure 143/50 04/28/22 15:52 O2 Sat by Pulse Oximetry 99 04/28/22 15:52 Pain Scale Pain Intensity 2 - Physical Exam General Appearance: no apparent distress, alert Eye Exam: PERRL/EOMI, eyes nml inspection Ears, Nose, Throat Exam: normal ENT inspection, TMs normal, pharynx normal, moist mucous membranes Neck Exam: normal inspection, non-tender, supple, full range of motion Respiratory Exam: normal breath sounds, lungs clear Cardiovascular Exam: regular rate/rhythm, normal heart sounds Gastrointestinal/Abdomen Exam: soft, normal bowel sounds, No tenderness Back Exam: normal inspection, normal range of motion Extremity Exam: normal inspection, normal range of motion, pelvis stable Neurologic Exam: alert, oriented x 3, cooperative, electroencephalograph technologist II-XII nml as tested, normal mood/affect, nml cerebellar function, nml station & gait, sensation nml, No motor deficits Skin Exam: normal color SpO2 Interpretation: normal SpO2: 99 O2 Delivery: Room Air - Course EKG Interpreted by Me: RATE (72), Sinus Rhythm, NORMAL AXIS, prolonged QT interval, Non-specific ST Changes Ordered Tests: Active Orders 24 hr Category Date Time Status EKG-ER Only STAT Care 04/28/22 16:13 Completed IV Insertion STAT Care 04/28/22 16:13 Completed POCT Glucose Check STAT Care 04/28/22 15:59 Completed CBC W DIFF Stat Lab 04/28/22 16:13 Completed CMP Stat Lab 04/28/22 16:00 Completed LIPASE Stat Lab 04/28/22 16:00 Completed Lactic Acid Stat Lab 04/28/22 16:25 Completed POCT GLUCOSE Stat Lab 04/28/22 15:56 Completed TROPONIN Q4H Lab 04/28/22 16:00 Completed UA W/RFX CULTURE Stat Lab 04/28/22 16:15 Completed Medication Summary Discontinued Medications Generic Name Dose Route Start Last Admin Trade Name Marcelo PRN Reason Stop Dose Admin Acetaminophen 650 mg 04/28/22 16:13 04/28/22 16:18 Acetaminophen 325 Mg Tablet PO 04/28/22 16:14 650 mg STAT STA Administration Acetaminophen Confirm 04/28/22 16:17 Acetaminophen 325 Mg Tablet Administered 04/28/22 16:18 Dose 650 mg .ROUTE .STK-MED ONE Sodium Chloride 1,000 mls @ 999 mls/hr 04/28/22 16:13 04/28/22 16:19 Sodium Chloride 0.9% 1000 Ml IV 04/28/22 17:13 999 mls/hr .Q1H1M STA Administration Sodium Chloride Confirm 04/28/22 16:17 Sodium Chloride 0.9% 1000 Ml Administered 04/28/22 16:18 Dose 1,000 mls @ ud .ROUTE .STK-MED ONE Ondansetron HCl 4 mg 04/28/22 16:13 04/28/22 16:19 Ondansetron Hcl 4 Mg/2 Ml Vial IV 04/28/22 16:14 4 mg STAT ONE Administration Ondansetron HCl Confirm 04/28/22 16:16 Ondansetron Hcl 4 Mg/2 Ml Vial Administered 04/28/22 16:17 Dose 4 mg .ROUTE .STK-MED ONE Lab/Rad Data: Laboratory Result Diagrams 04/28/22 16:13 04/28/22 16:00 Laboratory Results 04/28/22 04/28/22 04/28/22 Range/Units 16:25 16:15 16:13 WBC 8.3 (4.0-10.5) x10^3/uL RBC 4.33 (4.1-5.4) x10^6/uL Hgb 13.4 (12.0-16.0) g/dL Hct 39.8 (35-47) % MCV 91.9 (78-100) fL MCH 30.9 (26-32) pg MCHC 33.7 (32-36) g/dL RDW 12.1 (11.5-14.0) % Plt Count 244 (150-450) x10^3/uL MPV 10.2 (7.5-11.0) fL Gran % 48.3 (36.0-66.0) % Immature Gran % (Auto) 0.1 (0.00-0.4) % Nucleat RBC Rel Count 0.0 (0.00-0.1) % Eos # (Auto) 0.13 (0-0.5) x10^3/uL Immature Gran # (Auto) 0.01 (0.00-0.03) x10^3u/L Absolute Lymphs (auto) 3.62 (1.0-4.6) x10^3/uL Absolute Monos (auto) 0.48 (0.0-1.3) x10^3/uL Absolute Nucleated RBC 0.00 (0.00-0.01) x10^3u/L Lymphocytes % 43.7 (24.0-44.0) % Monocytes % 5.8 (0.0-12.0) % Eosinophils % 1.6 (0.00-5.0) % Basophils % 0.5 (0.0-0.4) % Absolute Granulocytes 4.01 (1.4-6.9) x10^3/uL Basophils # 0.04 (0-0.4) x10^3/uL Sodium (137-145) mmol/L Potassium (3.5-5.1) mmol/L Chloride (98-107) mmol/L Carbon Dioxide (22-30) mmol/L Anion Gap (5-15) MEQ/L BUN (7-17) mg/dL Creatinine (0.52-1.04) mg/dL Estimated GFR ML/MIN Glucose (74-106) mg/dL POC Glucometer (74 to 106) mg/dL Lactic Acid 1.1 (0.4-2.0) Calcium (8.4-10.2) mg/dL Total Bilirubin (0.2-1.3) mg/dL AST (14-36) U/L ALT (0-35) U/L Alkaline Phosphatase (38-126) U/L Troponin I (0.000-0.034) ng/mL Serum Total Protein (6.3-8.2) g/dL Albumin (3.5-5.0) g/dL Lipase (23-300) U/L Urinalys Dipstick Clnc MAIN LAB Urine Color YELLOW (YELLOW) Urine Appearance CLEAR (CLEAR) Urine pH 6.5 (5-6) Ur Specific [place] 1.015 (1.005-1.025) POC Urine Protein Conf NEGATIVE (Negative) Urine Ketones NEGATIVE (NEGATIVE) Urine Nitrite NEGATIVE (NEGATIVE) Urine Bilirubin NEGATIVE (NEGATIVE) Urine Urobilinogen 0.2 (0-1) mg/dL Urine Leukocytes NEGATIVE (NEGATIVE) Urine WBC (Auto) NONE (0-5) /HPF Urine RBC (Auto) 0-2 (0-2) /HPF U Epithel Cells (Auto) RARE (FEW) /HPF Urine Bacteria (Auto) NONE (NEGATIVE) /HPF Urine RBC MODERATE NON-HEM (0-5) [place]/ul Urine Mucus (Auto) SLIGHT (NEGATIVE) /HPF Ur Culture Indicated? NO Urine Glucose NEGATIVE (NEGATIVE) mg/dL 04/28/22 04/28/22 04/28/22 Range/Units 16:00 16:00 15:56 WBC (4.0-10.5) x10^3/uL RBC (4.1-5.4) x10^6/uL Hgb (12.0-16.0) g/dL Hct (35-47) % MCV (78-100) fL MCH (26-32) pg MCHC (32-36) g/dL RDW (11.5-14.0) % Plt Count (150-450) x10^3/uL MPV (7.5-11.0) fL Gran % (36.0-66.0) % Immature Gran % (Auto) (0.00-0.4) % Nucleat RBC Rel Count (0.00-0.1) % Eos # (Auto) (0-0.5) x10^3/uL Immature Gran # (Auto) (0.00-0.03) x10^3u/L Absolute Lymphs (auto) (1.0-4.6) x10^3/uL Absolute Monos (auto) (0.0-1.3) x10^3/uL Absolute Nucleated RBC (0.00-0.01) x10^3u/L Lymphocytes % (24.0-44.0) % Monocytes % (0.0-12.0) % Eosinophils % (0.00-5.0) % Basophils % (0.0-0.4) % Absolute Granulocytes (1.4-6.9) x10^3/uL Basophils # (0-0.4) x10^3/uL Sodium 136 L (137-145) mmol/L Potassium 3.6 (3.5-5.1) mmol/L Chloride 102 (98-107) mmol/L Carbon Dioxide 21 L (22-30) mmol/L Anion Gap 16.3 H (5-15) MEQ/L BUN 9 (7-17) mg/dL Creatinine 0.60 (0.52-1.04) mg/dL Estimated GFR > 60.0 ML/MIN Glucose 88 (74-106) mg/dL POC Glucometer 84 (74 to 106) mg/dL Lactic Acid (0.4-2.0) Calcium 9.4 (8.4-10.2) mg/dL Total Bilirubin 0.60 (0.2-1.3) mg/dL AST 25 (14-36) U/L ALT 24 (0-35) U/L Alkaline Phosphatase 59 (38-126) U/L Troponin I < 0.012 (0.000-0.034) ng/mL Serum Total Protein 7.9 (6.3-8.2) g/dL Albumin 5.0 (3.5-5.0) g/dL Lipase 71 (23-300) U/L Urinalys Dipstick Clnc Urine Color (YELLOW) Urine Appearance (CLEAR) Urine pH (5-6) Ur Specific [place] (1.005-1.025) POC Urine Protein Conf (Negative) Urine Ketones (NEGATIVE) Urine Nitrite (NEGATIVE) Urine Bilirubin (NEGATIVE) Urine Urobilinogen (0-1) mg/dL Urine Leukocytes (NEGATIVE) Urine WBC (Auto) (0-5) /HPF Urine RBC (Auto) (0-2) /HPF U Epithel Cells (Auto) (FEW) /HPF Urine Bacteria (Auto) (NEGATIVE) /HPF Urine RBC (0-5) [place]/ul Urine Mucus (Auto) (NEGATIVE) /HPF Ur Culture Indicated? Urine Glucose (NEGATIVE) mg/dL - Progress Progress: improved Progress Note: 04/28/22 17:14 21 years old is evaluated for near syncopal episode prior to arrival. Has nonfocal neuro exam throughout stay in the ER. Work-up grossly unremarkable except for some element of dehydration. Given fluids, on reevaluation feeling better. EKG sinus rhythm without any acute ischemic changes. Negative troponins. No UTI. Patient is concerned about her seizures as well as she had worsening of seizure during previous pregnancies. Recommended outpatient follow-up with neurology. Discussed signs symptoms of worsening needing return to ER which she seems understanding. Counseled pt/family regarding: lab results, diagnosis, need for follow-up, smoking cessation - Departure Departure Disposition: Home Clinical Impression: Near syncope, Condition: Stable Critical Care Time: No Referrals: JAMES CARTWRIGHT DO [Primary Care Provider] - Follow Up with PCP/3 days ARTEMIO TAMEZ MD [ACTIVE STAFF] - Follow Up with PCP/3 days BENITA POOLE DO [NON-STAFF PHY W/O PRIVILEGES] - Follow up/PCP as directed DOMINGA DOLAN [CONSULTING PHYSICIAN] - Follow up/PCP as directed (Call for appointment for reevaluation) Instructions: Seizures, Adult (DC), Near Fainting (DC) Additional Instructions: Drink plenty of fluids to keep yourself well-hydrated. Follow-up with primary care and neurology for reevaluation. Return to ER for any worsening.
[2022-04-28 16:25] LABS: Absolute Neutrophil Ct (ANC) 4.01 x10^3/uL (1.4-6.9); Basophil (Absolute #) 0.04 x10^3/uL (0-0.4); Eosinophil % 1.6 % (0.00-5.0); Eosinophil (Absolute #) 0.13 x10^3/uL (0-0.5); Hematocrit 39.8 % (35-47); Hemoglobin 13.4 g/dL (12.0-16.0); Lymphocyte (Absolute #) 3.62 x10^3/uL (1.0-4.6); Lymphocytes % 43.7 % (24.0-44.0); Mean Cell Volume 91.9 fL (78-100); Mean Corpuscular Hemoglobin 30.9 pg (26-32); Mean Corpuscular Hgb Concent. 33.7 g/dL (32-36); Mean Platelet Volume 10.2 fL (7.5-11.0); Monocyte (Absolute #) 0.48 x10^3/uL (0.0-1.3); Monocytes % 5.8 % (0.0-12.0); Neutrophil % 48.3 % (36.0-66.0); Platelet Count 244 x10^3/uL (150-450); Red Blood Count 4.33 x10^6/uL (4.1-5.4); Red Cell Distribution Width 12.1 % (11.5-14.0); White Blood Count 8.3 x10^3/uL (4.0-10.5)
[2022-04-28 16:32] LABS: Appearance CLEAR (CLEAR); Bilirubin NEGATIVE (NEGATIVE); Epithelial Cells RARE /HPF (FEW); Glucose NEGATIVE (NEGATIVE); Ketones NEGATIVE (NEGATIVE); Mucus SLIGHT /HPF (NEGATIVE); RBC 0-2 /HPF (0-2); RBC MODERATE NON-HEM Ery/ul (0-5); Specific Gravity 1.015 (1.005-1.025)
[2022-04-28 16:33] LABS: ALKALINE PHOSPHATASE 59 U/L (38-126); ANION GAP 16.3 MEQ/L (5-15); BLOOD UREA NITROGEN 9 mg/dL (7-17); CHLORIDE 102 mmol/L (98-107); Calcium 9.4 mg/dL (8.4-10.2); Carbon Dioxide 21 mmol/L (22-30); EST GLOMERULAR FILTRATION RATE > 60.0 ML/MIN; Glucose 88 mg/dL (74-106); LIPASE 71 U/L (23-300); Potassium 3.6 mmol/L (3.5-5.1); SGOT/AST 25 U/L (14-36); SGPT/ALT 24 U/L (0-35); SODIUM 136 mmol/L (137-145); Total Protein 7.9 g/dL (6.3-8.2)
[2022-04-28 16:33] LABS: Dipstick done @ ? MAIN LAB; Nitrite NEGATIVE (NEGATIVE); Ph 6.5 (5-6); Protein,Urine Dip NEGATIVE (Negative); Urobilinogen 0.2 mg/dL (0-1)
[2022-04-28 17:00] LABS: Urine Cultured Indicated? NO
[2022-04-28 17:02] VITALS: O2SAT 99
[2022-04-28 17:19] VITALS: BP 104/60; PULSE 64
== END 2022-04-28 17:26 | disposition home or self-care (01) ==
LOC: ED 15:41
DX: R55 Syncope and collapse (principal); Z33.1 Pregnant state, incidental; R11.0 Nausea; Z28.310 Unvaccinated for COVID-19
CPT/HCPCS: 36000; 36415; 80053; 81015; 82947; 83605; 83690; 84484; 85025; 93005; 96374; 99284; J2405; A9270-GY

== ENCOUNTER 2023-03-22 09:06 | Emergency (ER) | payer OTHER ==
[2023-03-22] MEDS ORDERED: Sodium Chloride 0.9% 1000 ML 1,000 ML IV STA (09:11)
[2023-03-22] MEDS ORDERED: Sodium Chloride 0.9% 1000 ML 1,000 ML ONE (09:21)
[2023-03-22 09:31] LABS: VBG BASE EXCESS -0.2 (-2.0-2.0); VBG CARBOXYHEMOGLOBIN 1.7 % T HGB (0.0-6.9); VBG HCO3- 20.9 meq/L (22-28); VBG HEMOGLOBIN 14.2; VBG O2 SATURATION 88.4 (95-100); VBG POTASSIUM 3.7 (3.5-5.1); VBG pH 7.53 (7.32-7.42)
[2023-03-22 09:38] LABS: Absolute Neutrophil Ct (ANC) 2.96 x10^3/uL (1.4-6.9); BASOPHIL % 0.4 % (0.0-0.4); Basophil (Absolute #) 0.02 x10^3/uL (0-0.4); Eosinophil % 1.8 % (0.00-5.0); Hematocrit 38.8 % (35-47); Hemoglobin 13.2 g/dL (12.0-16.0); IMMATURE GRAN # 0.01 x10^3u/L (0.00-0.03); IMMATURE GRAN % 0.2 % (0.00-0.4); Lymphocyte (Absolute #) 2.01 x10^3/uL (1.0-4.6); Lymphocytes % 37.1 % (24.0-44.0); Mean Cell Volume 90.4 fL (78-100); Mean Corpuscular Hemoglobin 30.8 pg (26-32); Mean Platelet Volume 10.2 fL (7.5-11.0); Monocyte (Absolute #) 0.32 x10^3/uL (0.0-1.3); Monocytes % 5.9 % (0.0-12.0); Neutrophil % 54.6 % (36.0-66.0); Platelet Count 180 x10^3/uL (150-450); Red Blood Count 4.29 x10^6/uL (4.1-5.4); Red Cell Distribution Width 12.3 % (11.5-14.0); White Blood Count 5.4 x10^3/uL (4.0-10.5)
[2023-03-22 09:48] LABS: HCG SERUM TEST NEGATIVE (NEGATIVE)
--- NOTE | 2023-03-22 09:51 | ERPHSYRPT ---
- History of Present Illness Time Seen by Provider: 03/22/23 09:20 Source: patient, EMS Exam Limitations: no limitations Patient Subjective Stated Complaint: pt here for sob for 2 months off and on, she states she wakes up like this in the mornings, no fever no cough, she denies stress. she is seeing the [facility] and having tests done Triage Nursing Assessment: pt alert, appears anxious sob at times, no cough, skin w/d/p. no edema noted, Physician History: Patient is a 22-year-old white female who presents with a complaint of shortness of breath. The episode this morning started when she awoke at got worse when she went to work she has tingling in her fingers and her toes and face. She has been having sees episodes on and off she says for 2 months she denies any fever denies any cough denies any stress she recently had a site monitor that she wore for a period of time which essentially showed only a borderline prolonged QT interval. She has a history of thyroid cyst syncope and collapse palpitations anxiety intentional drug overdose pseudoseizures and atypical chest pain in her history. Timing/Duration: today (This episode started when she awoke this morning) Activities at Onset: none Severity of Dyspnea-Max: moderate Severity of Dyspnea-Current: moderate Possible Cause: unknown cause Modifying Factors: Improves With: nothing Associated Symptoms: intermittent, chest pain/discomfort, painful breathing, tingling face, tingling hands Allergies/Adverse Reactions: paroxetine [From Paxil] Allergy (Severe, Verified 03/22/23 09:19) "extreme anger" cephalexin monohydrate [From Keflex] Allergy (Intermediate, Verified 03/22/23 09:19) Hives guaifenesin [From Mucinex] Allergy (Intermediate, Verified 03/22/23 09:19) Hives lisdexamfetamine [From Vyvanse] Adverse Reaction (Unknown, Verified 03/22/23 09:19) "irritability and constantly clearing throat until it would swell" methylphenidate [From Concerta] Adverse Reaction (Unknown, Verified 03/22/23 09:19) "irritability and constantly clearing throat until it would swell" Hx Tetanus, Diphtheria Vaccination/Date Given: Yes Hx Influenza Vaccination/Date Given: No Hx Pneumococcal Vaccination/Date Given: No Immunizations Up to Date: Yes Travel Risk - International Travel Have you traveled outside of the country in past 3 weeks: No - Coronavirus Screening Are you exhibiting any of the following symptoms?: No Close contact with a COVID-19 positive Pt in past 14-21 Days: No - Vaccine Status Have you recieved a Covid-19 vaccination: No - Review of Systems Constitutional: No Fever, No Chills Eyes: No Symptoms Ears, Nose, & Throat: No Symptoms Respiratory: Dyspnea, Dyspnea on Exertion (SANCHEZ), No Cough Cardiac: Chest Pain, No Edema, No Syncope Abdominal/Gastrointestinal: No Abdominal Pain, No Nausea, No Vomiting, No Diarrhea Genitourinary Symptoms: No Dysuria Musculoskeletal: No Back Pain, No Neck Pain Skin: No Rash Neurological: No Dizziness, No Focal Weakness, No Sensory Changes Psychological: No Symptoms, No Anxiety (Patient seems anxious but denies anxiety) Endocrine: No Symptoms All Other Systems: Reviewed and Negative - Past Medical History Pertinent Past Medical History: Yes Neurological History: Other ENT History: No Pertinent History Cardiac History: No Pertinent History Respiratory History: No Pertinent History Endocrine Medical History: No Pertinent History Musculoskeletal History: No Pertinent History GI Medical History: No Pertinent History History: No Pertinent History Psycho-Social History: Anxiety, Depression, Panic Disorder Female Reproductive Disorders: No Pertinent History Other Medical History: 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, 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 - Past Surgical History Past Surgical History: Yes Neuro Surgical History: No Pertinent History Cardiac: No Pertinent History Respiratory: No Pertinent History Gastrointestinal: No Pertinent History Genitourinary: No Pertinent History Musculoskeletal: No Pertinent History Female Surgical History: Other Other Surgical History: vaginal laproscopy - Social History Smoking Status: Former smoker How long have you smoked: 2yrs Exposure to second hand smoke: Yes Drug Use: none Patient Lives Alone: No Significant Family History: no pertinent family hx - Female History Hx Last Menstrual Period: march 2023 Hx Now: No - Nursing Vital Signs Nursing Vital Signs: Initial Vital Signs Respiratory Rate 24 03/22/23 09:10 O2 Sat by Pulse Oximetry 97 03/22/23 09:10 Pain Scale Pain Intensity 6 - Physical Exam General Appearance: mild distress Eye Exam: PERRL/EOMI Neck Exam: normal inspection, supple Cardiovascular/Chest Exam: normal heart sounds, regular rate/rhythm Abdominal/Gastrointestinal Exam: soft, No tenderness, No distention, No mass Extremity Exam: non-tender, normal range of motion, normal inspection, no calf tenderness, no pedal edema Neurologic Exam: alert, oriented x 3, cooperative, compliance administrator II-XII nml as tested, sensation nml, No motor deficits Skin Exam: normal color, warm, No dry SpO2 Interpretation: normal SpO2: 99 O2 Delivery: Room Air - Course Nursing assessment & vital signs reviewed: Yes EKG Interpreted by Me: RATE (81), Sinus Rhythm, NORMAL AXIS, prolonged QT interval, NORMAL QRS, NORMAL ST-T - Radiology Exams Chest X-ray Interpretation: Interpreted by me, Negative Ordered Tests: Active Orders 24 hr Category Date Time Status EKG-ER Only STAT Care 03/22/23 09:11 Active IV Insertion STAT Care 03/22/23 09:11 Active CHEST 1 VIEW (PORTABLE) Stat Exams 03/22/23 09:13 Ordered CBC W DIFF Stat Lab 03/22/23 09:30 Completed CMP Stat Lab 03/22/23 09:30 Completed D-DIMER QUANTITATIVE Stat Lab 03/22/23 09:30 Completed HCG QUALITATIVE, SERUM Stat Lab 03/22/23 09:30 Completed Lactic Acid Stat Lab 03/22/23 09:29 Completed MAGNESIUM Stat Lab 03/22/23 09:30 Completed NT PRO BNPII Stat Lab 03/22/23 09:30 Completed PROTIME WITH INR Stat Lab 03/22/23 09:30 Completed PTT Stat Lab 03/22/23 09:30 Completed T4 (Thyroxine) Stat Lab 03/22/23 09:30 Received TROPONIN Q4H Lab 03/22/23 09:30 Completed TROPONIN Q4H Lab 03/22/23 13:15 Ordered TROPONIN Q4H Lab 03/22/23 17:15 Ordered TSH, 3RD Generation Stat Lab 03/22/23 09:30 Completed Urine Triage Profile Stat Lab 03/22/23 09:58 Ordered VENOUS BLOOD GAS Stat Lab 03/22/23 09:29 Completed Medication Summary Discontinued Medications Generic Name Dose Route Start Last Admin Trade Name Freq PRN Reason Stop Dose Admin Sodium Chloride 1,000 mls @ 999 mls/hr 03/22/23 09:11 03/22/23 10:28 Sodium Chloride 0.9% 1000 Ml IV 03/22/23 10:11 Infused .Q1H1M STA Infusion Sodium Chloride Confirm 03/22/23 09:21 Sodium Chloride 0.9% 1000 Ml Administered 03/22/23 09:22 Dose 1,000 mls @ ud .ROUTE .STK-MED ONE Lorazepam 1 mg 03/22/23 10:16 03/22/23 10:20 Lorazepam 2 Mg/1 Ml 2 Mg Vial IV 03/22/23 10:17 1 mg STAT ONE Administration Lorazepam Confirm 03/22/23 10:19 Lorazepam 2 Mg/1 Ml 2 Mg Vial Administered 03/22/23 10:20 Dose 2 mg .ROUTE .STK-MED ONE Lab/Rad Data: Laboratory Result Diagrams 03/22/23 09:30 03/22/23 09:30 Laboratory Results 03/22/23 03/22/23 03/22/23 Range/Units 09:30 09:30 09:30 WBC (4.0-10.5) x10^3/uL RBC (4.1-5.4) x10^6/uL Hgb (12.0-16.0) g/dL Hct (35-47) % MCV (78-100) fL MCH (26-32) pg MCHC (32-36) g/dL RDW (11.5-14.0) % Plt Count (150-450) x10^3/uL MPV (7.5-11.0) fL Gran % (36.0-66.0) % Immature Gran % (Auto) (0.00-0.4) % Nucleat RBC Rel Count (0.00-0.1) % Eos # (Auto) (0-0.5) x10^3/uL Immature Gran # (Auto) (0.00-0.03) x10^3u/L Absolute Lymphs (auto) (1.0-4.6) x10^3/uL Absolute Monos (auto) (0.0-1.3) x10^3/uL Absolute Nucleated RBC (0.00-0.01) x10^3u/L Lymphocytes % (24.0-44.0) % Monocytes % (0.0-12.0) % Eosinophils % (0.00-5.0) % Basophils % (0.0-0.4) % Absolute Granulocytes (1.4-6.9) x10^3/uL Basophils # (0-0.4) x10^3/uL PT (9.4-12.5) SECONDS INR (0.8-3.0) APTT (25.1-36.5) SECONDS D-Dimer (0.0-0.50) mg/L pO2/FiO2 Ratio % VBG pH (7.32-7.42) VBG pCO2 at Pat Temp (42-55) mm/Hg VBG pO2 at Pat Temp (25-40) mm/Hg VBG HCO3 (22-28) meq/L VBG O2 Sat (Jesse) (95-100) VBG Base Excess (-2.0-2.0) VBG Hemoglobin VBG Carboxyhemoglobin (0.0-6.9) % T HGB POC Potassium (3.5-5.1) Sodium (137-145) mmol/L Potassium (3.5-5.1) mmol/L Chloride (98-107) mmol/L Carbon Dioxide (22-30) mmol/L Anion Gap (5-15) MEQ/L BUN (7-17) mg/dL Creatinine (0.52-1.04) mg/dL Estimated GFR ML/MIN Glucose (74-106) mg/dL Lactic Acid (0.4-2.0) Calcium (8.4-10.2) mg/dL Magnesium (1.6-2.3) mg/dL Total Bilirubin (0.2-1.3) mg/dL AST (14-36) U/L ALT (0-35) U/L Alkaline Phosphatase (38-126) U/L Troponin I < 0.012 (0.000-0.034) ng/mL NT-Pro-B Natriuret Pep (<300) pg/mL Serum Total Protein (6.3-8.2) g/dL Albumin (3.5-5.0) g/dL TSH 3rd Generation (0.47-4.68) mIU/L Serum HCG, Qual NEGATIVE (NEGATIVE) Influenza Type A Ag NEGATIVE (NEGATIVE) Influenza Type B Ag NEGATIVE (NEGATIVE) RSV (PCR) NEGATIVE (NEGATIVE) SARS-CoV-2 (PCR) NEGATIVE (NEGATIVE) 03/22/23 03/22/23 03/22/23 Range/Units 09:30 09:30 09:30 WBC 5.4 (4.0-10.5) x10^3/uL RBC 4.29 (4.1-5.4) x10^6/uL Hgb 13.2 (12.0-16.0) g/dL Hct 38.8 (35-47) % MCV 90.4 (78-100) fL MCH 30.8 (26-32) pg MCHC 34.0 (32-36) g/dL RDW 12.3 (11.5-14.0) % Plt Count 180 (150-450) x10^3/uL MPV 10.2 (7.5-11.0) fL Gran % 54.6 (36.0-66.0) % Immature Gran % (Auto) 0.2 (0.00-0.4) % Nucleat RBC Rel Count 0.0 (0.00-0.1) % Eos # (Auto) 0.10 (0-0.5) x10^3/uL Immature Gran # (Auto) 0.01 (0.00-0.03) x10^3u/L Absolute Lymphs (auto) 2.01 (1.0-4.6) x10^3/uL Absolute Monos (auto) 0.32 (0.0-1.3) x10^3/uL Absolute Nucleated RBC 0.00 (0.00-0.01) x10^3u/L Lymphocytes % 37.1 (24.0-44.0) % Monocytes % 5.9 (0.0-12.0) % Eosinophils % 1.8 (0.00-5.0) % Basophils % 0.4 (0.0-0.4) % Absolute Granulocytes 2.96 (1.4-6.9) x10^3/uL Basophils # 0.02 (0-0.4) x10^3/uL PT 10.9 (9.4-12.5) SECONDS INR 1.00 (0.8-3.0) APTT 25.8 (25.1-36.5) SECONDS D-Dimer 0.19 (0.0-0.50) mg/L pO2/FiO2 Ratio % VBG pH (7.32-7.42) VBG pCO2 at Pat Temp (42-55) mm/Hg VBG pO2 at Pat Temp (25-40) mm/Hg VBG HCO3 (22-28) meq/L VBG O2 Sat (Jesse) (95-100) VBG Base Excess (-2.0-2.0) VBG Hemoglobin VBG Carboxyhemoglobin (0.0-6.9) % T HGB POC Potassium (3.5-5.1) Sodium 140 (137-145) mmol/L Potassium 3.8 (3.5-5.1) mmol/L Chloride 111 H (98-107) mmol/L Carbon Dioxide 18 L (22-30) mmol/L Anion Gap 14.8 (5-15) MEQ/L BUN 10 (7-17) mg/dL Creatinine 0.70 (0.52-1.04) mg/dL Estimated GFR > 60.0 ML/MIN Glucose 100 (74-106) mg/dL Lactic Acid (0.4-2.0) Calcium 9.2 (8.4-10.2) mg/dL Magnesium 1.9 (1.6-2.3) mg/dL Total Bilirubin 0.50 (0.2-1.3) mg/dL AST 22 (14-36) U/L ALT 20 (0-35) U/L Alkaline Phosphatase 55 (38-126) U/L Troponin I (0.000-0.034) ng/mL NT-Pro-B Natriuret Pep 158 (<300) pg/mL Serum Total Protein 7.6 (6.3-8.2) g/dL Albumin 4.5 (3.5-5.0) g/dL TSH 3rd Generation 0.441 L (0.47-4.68) mIU/L Serum HCG, Qual (NEGATIVE) Influenza Type A Ag (NEGATIVE) Influenza Type B Ag (NEGATIVE) RSV (PCR) (NEGATIVE) SARS-CoV-2 (PCR) (NEGATIVE) 03/22/23 03/22/23 Range/Units 09:29 09:29 WBC (4.0-10.5) x10^3/uL RBC (4.1-5.4) x10^6/uL Hgb (12.0-16.0) g/dL Hct (35-47) % MCV (78-100) fL MCH (26-32) pg MCHC (32-36) g/dL RDW (11.5-14.0) % Plt Count (150-450) x10^3/uL MPV (7.5-11.0) fL Gran % (36.0-66.0) % Immature Gran % (Auto) (0.00-0.4) % Nucleat RBC Rel Count (0.00-0.1) % Eos # (Auto) (0-0.5) x10^3/uL Immature Gran # (Auto) (0.00-0.03) x10^3u/L Absolute Lymphs (auto) (1.0-4.6) x10^3/uL Absolute Monos (auto) (0.0-1.3) x10^3/uL Absolute Nucleated RBC (0.00-0.01) x10^3u/L Lymphocytes % (24.0-44.0) % Monocytes % (0.0-12.0) % Eosinophils % (0.00-5.0) % Basophils % (0.0-0.4) % Absolute Granulocytes (1.4-6.9) x10^3/uL Basophils # (0-0.4) x10^3/uL PT (9.4-12.5) SECONDS INR (0.8-3.0) APTT (25.1-36.5) SECONDS D-Dimer (0.0-0.50) mg/L pO2/FiO2 Ratio 21.0 % VBG pH 7.53 H (7.32-7.42) VBG pCO2 at Pat Temp 25 L (42-55) mm/Hg VBG pO2 at Pat Temp 51 H (25-40) mm/Hg VBG HCO3 20.9 L (22-28) meq/L VBG O2 Sat (Jesse) 88.4 L (95-100) VBG Base Excess -0.2 (-2.0-2.0) VBG Hemoglobin 14.2 VBG Carboxyhemoglobin 1.7 (0.0-6.9) % T HGB POC Potassium 3.7 (3.5-5.1) Sodium (137-145) mmol/L Potassium (3.5-5.1) mmol/L Chloride (98-107) mmol/L Carbon Dioxide (22-30) mmol/L Anion Gap (5-15) MEQ/L BUN (7-17) mg/dL Creatinine (0.52-1.04) mg/dL Estimated GFR ML/MIN Glucose (74-106) mg/dL Lactic Acid 2.0 (0.4-2.0) Calcium (8.4-10.2) mg/dL Magnesium (1.6-2.3) mg/dL Total Bilirubin (0.2-1.3) mg/dL AST (14-36) U/L ALT (0-35) U/L Alkaline Phosphatase (38-126) U/L Troponin I (0.000-0.034) ng/mL NT-Pro-B Natriuret Pep (<300) pg/mL Serum Total Protein (6.3-8.2) g/dL Albumin (3.5-5.0) g/dL TSH 3rd Generation (0.47-4.68) mIU/L Serum HCG, Qual (NEGATIVE) Influenza Type A Ag (NEGATIVE) Influenza Type B Ag (NEGATIVE) RSV (PCR) (NEGATIVE) SARS-CoV-2 (PCR) (NEGATIVE) - Progress Progress: improved Air Movement: good Blood Culture(s) Obtained: No Antibiotics given: No Counseled pt/family regarding: lab results, diagnosis, need for follow-up Medical Desision Making - Independent Historian Additional History obtained from: Mother - External Record(s) Reviewed Records reviewed as a part of evaluation & management: Clinic (Reviewed the cardiac monitoring that was recently done.) - Diagnostic Testing Diagnostic test were ordered, analyzed, and reviewed by me: Yes Radiological Interpretation: Interpreted by me - Risk of complications The pt has a mod risk of morbidity or mortality based on: Need for prescription drug management - Departure Departure Disposition: Home Clinical Impression: Low TSH level Condition: Stable Critical Care Time: No Referrals: SAMUEL SOLORIO NP [Primary Care Provider] - Follow up/PCP as directed Instructions: Shortness of Breath (Dyspnea) (DC), Hyperthyroidism (overactive thyroid) Prescriptions: Lorazepam 1 mg [Ativan 1 MG] 1 mg PO Q8H PRN PRN #8 tablet PRN Reason: Anxiety
[2023-03-22 09:55] LABS: D-DIMER QUANTITATIVE 0.19 mg/L (0.0-0.50); PROTIME 10.9 SECONDS (9.4-12.5); PTT 25.8 SECONDS (25.1-36.5)
[2023-03-22] MEDS ORDERED: Ativan 2 MG/1 ML VIAL IV ONE (10:16)
[2023-03-22] MEDS ORDERED: Ativan 2 MG/1 ML VIAL ONE (10:19)
[2023-03-22 10:21] LABS: ALBUMIN 4.5 g/dL (3.5-5.0); ALKALINE PHOSPHATASE 55 U/L (38-126); ANION GAP 14.8 MEQ/L (5-15); BLOOD UREA NITROGEN 10 mg/dL (7-17); CHLORIDE 111 mmol/L (98-107); Calcium 9.2 mg/dL (8.4-10.2); Carbon Dioxide 18 mmol/L (22-30); EST GLOMERULAR FILTRATION RATE > 60.0 ML/MIN; Glucose 100 mg/dL (74-106); MAGNESIUM 1.9 mg/dL (1.6-2.3); NT PRO BNPII 158 pg/mL (<300); Potassium 3.8 mmol/L (3.5-5.1); SGOT/AST 22 U/L (14-36); SGPT/ALT 20 U/L (0-35); SODIUM 140 mmol/L (137-145); TSH, 3RD Generation 0.441 mIU/L (0.47-4.68); Total Protein 7.6 g/dL (6.3-8.2)
[2023-03-22 10:26] LABS: INFLUENZA A NEGATIVE (NEGATIVE); INFLUENZA B NEGATIVE (NEGATIVE); RESPIRATORY SYNCTIAL VIRUS NEGATIVE (NEGATIVE); SARS-CoV-2 Xpert Express NEGATIVE (NEGATIVE)
[2023-03-22 11:27] VITALS: BP 123/71; PULSE 80; O2SAT 98
--- NOTE | 2023-03-22 12:41 | XRAY ---
CLINICAL HISTORY:soa COMPARISON:None TECHNIQUE:X ray of the chest, AP view. FINDINGS: Bulky left hilum. Chest lead is seen projecting over the left hilum. The right is unremarkable. Radiographic examination of the chest demonstrates clear lungs. Normal configuration of the mediastinum. The cardiac size is normal. The bony thorax is unremarkable. The costophrenic and cardiophrenic angles are clear. IMPRESSION: Bulky left hilum. Otherwise, Unremarkable. Electronically Signed by: Jenaro Rosario MD. (03/22/2023 09:32:13 [employer])
== END 2023-03-22 11:27 | disposition home or self-care (01) ==
LOC: ED 09:06
DX: R94.6 Abnormal results of thyroid function studies (principal); R06.02 Shortness of breath; R20.2 Paresthesia of skin; Z28.310 Unvaccinated for COVID-19
CPT/HCPCS: 0241U; 36000; 36415; 71045; 80053; 82384; 82570; 82805; 83735; 83880; 84436; 84443; 84479; 84484; 84703; 85025; 85379; 85610; 85730; 93005; 96360; 96374; 99284; 83605; J2060

== ENCOUNTER 2023-11-03 15:38 | Emergency (ER) | payer OTHER ==
[2023-11-03 16:04] VITALS: TEMP 100
[2023-11-03 16:07] VITALS: RESP 20
--- NOTE | 2023-11-03 16:44 | ERPHSYRPT ---
- History of Present Illness Time Seen by Provider: 11/03/23 16:11 Source: patient Exam Limitations: no limitations Patient Subjective Stated Complaint: pt here for aches, cough, fever, vomiting, she has been around a flu postive pt, Triage Nursing Assessment: pt alert, able to transfer to bed,able to undress, resp easy, occ dry cough, skin w/d/p, moves all ext well, no edema noted, occ dry heaves, Physician History: Since yesterday pt has had nausea, vomiting, productive cough and generalized body aches; today a sore throat. LBM was yesterday & wnl. Allergies/Adverse Reactions: paroxetine [From Paxil] Allergy (Severe, Verified 11/03/23 16:04) "extreme anger" cephalexin monohydrate [From Keflex] Allergy (Intermediate, Verified 11/03/23 16:04) Hives guaifenesin [From Mucinex] Allergy (Intermediate, Verified 11/03/23 16:04) Hives lisdexamfetamine [From Vyvanse] Adverse Reaction (Unknown, Verified 11/03/23 16:04) "irritability and constantly clearing throat until it would swell" methylphenidate [From Concerta] Adverse Reaction (Unknown, Verified 11/03/23 16:04) "irritability and constantly clearing throat until it would swell" Home Medications: Escitalopram Oxalate [Lexapro] 10 mg PO DAILY 11/03/23 [History] Metoprolol Tartrate 25 mg [Lopressor 25MG Tab] 25 mg PO DAILY 11/03/23 [History] Hx Tetanus, Diphtheria Vaccination/Date Given: No Hx Influenza Vaccination/Date Given: No Hx Pneumococcal Vaccination/Date Given: No Immunizations Up to Date: Yes Travel Risk - International Travel Have you traveled outside of the country in past 3 weeks: No - Coronavirus Screening Symptoms: Fever, Cough: New Onset, Vomiting/Diarrhea Close contact with a COVID-19 positive Pt in past 14-21 Days: No - Vaccine Status Have you recieved a Covid-19 vaccination: No - Review of Systems Constitutional: Other (generalized aches since yesterday), No Fever Ears, Nose, & Throat: Throat Pain Respiratory: Cough Abdominal/Gastrointestinal: Nausea, Vomiting, No Diarrhea Neurological: No Headache - Past Medical History Pertinent Past Medical History: Yes Neurological History: Other ENT History: No Pertinent History Cardiac History: No Pertinent History Respiratory History: No Pertinent History Endocrine Medical History: No Pertinent History Musculoskeletal History: No Pertinent History GI Medical History: No Pertinent History History: No Pertinent History Psycho-Social History: Anxiety, Depression, Panic Disorder Female Reproductive Disorders: No Pertinent History Other Medical History: 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, 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 - Past Surgical History Past Surgical History: Yes Neuro Surgical History: No Pertinent History Cardiac: No Pertinent History Respiratory: No Pertinent History Gastrointestinal: No Pertinent History Genitourinary: No Pertinent History Musculoskeletal: No Pertinent History Female Surgical History: Other Other Surgical History: vaginal laproscopy - Social History Smoking Status: Never smoker How long have you smoked: 2yrs Exposure to second hand smoke: No Drug Use: marijuana Patient Lives Alone: No Significant Family History: no pertinent family hx - Female History Hx Last Menstrual Period: none Hx Now: No - Nursing Vital Signs Nursing Vital Signs: Initial Vital Signs Temperature 100.0 F 11/03/23 16:03 Pulse Rate 142 H 11/03/23 16:03 Respiratory Rate 18 11/03/23 16:03 Blood Pressure 114/51 11/03/23 16:03 O2 Sat by Pulse Oximetry 97 11/03/23 16:03 Pain Scale Pain Intensity 2 - Physical Exam General Appearance: alert Eye Exam: PERRL/EOMI Ears, Nose, Throat Exam: TMs normal, pharyngeal erythema Neck Exam: normal inspection Respiratory Exam: normal breath sounds Cardiovascular Exam: normal heart sounds Gastrointestinal/Abdomen Exam: soft, normal bowel sounds Back Exam: normal inspection Extremity Exam: No pedal edema Neurologic Exam: alert, cooperative Skin Exam: warm, dry SpO2 Interpretation: normal SpO2: 97 O2 Delivery: Room Air - Course Nursing assessment & vital signs reviewed: Yes Ordered Tests: Active Orders 24 hr Category Date Time Status CBC W DIFF Stat Lab 11/03/23 17:00 Completed CMP Stat Lab 11/03/23 17:00 Completed Medication Summary Discontinued Medications Generic Name Dose Route Start Last Admin Trade Name Freq PRN Reason Stop Dose Admin Potassium Bicarbonate 50 meq 11/03/23 17:56 Potassium Bicarbonate 25 Meq Tab PO 11/03/23 17:57 STAT ONE Lab/Rad Data: Laboratory Result Diagrams 11/03/23 17:00 11/03/23 17:00 Laboratory Results 11/03/23 11/03/23 11/03/23 Range/Units 17:15 17:15 17:00 WBC (4.0-10.5) x10^3/uL RBC (4.1-5.4) x10^6/uL Hgb (12.0-16.0) g/dL Hct (35-47) % MCV (78-100) fL MCH (26-32) pg MCHC (32-36) g/dL RDW (11.5-14.0) % Plt Count (150-450) x10^3/uL MPV (7.5-11.0) fL Gran % (36.0-66.0) % Immature Gran % (Auto) (0.00-0.4) % Nucleat RBC Rel Count (0.00-0.1) % Eos # (Auto) (0-0.5) x10^3/uL Immature Gran # (Auto) (0.00-0.03) x10^3u/L Absolute Lymphs (auto) (1.0-4.6) x10^3/uL Absolute Monos (auto) (0.0-1.3) x10^3/uL Absolute Nucleated RBC (0.00-0.01) x10^3u/L Lymphocytes % (24.0-44.0) % Monocytes % (0.0-12.0) % Eosinophils % (0.00-5.0) % Basophils % (0.0-0.4) % Absolute Granulocytes (1.4-6.9) x10^3/uL Basophils # (0-0.4) x10^3/uL Sodium 136 L (137-145) mmol/L Potassium 3.1 L (3.5-5.1) mmol/L Chloride 102 (98-107) mmol/L Carbon Dioxide 25 (22-30) mmol/L Anion Gap 11.7 (5-15) MEQ/L BUN 9 (7-17) mg/dL Creatinine 0.59 (0.52-1.04) mg/dL Estimated GFR 128.2 ML/MIN Glucose 99 (74-106) mg/dL Calcium 9.4 (8.4-10.2) mg/dL Total Bilirubin 0.70 (0.2-1.3) mg/dL AST 29 (14-36) U/L ALT 23 (0-35) U/L Alkaline Phosphatase 62 (38-126) U/L Serum Total Protein 7.7 (6.3-8.2) g/dL Albumin 4.6 (3.5-5.0) g/dL Influenza Type A Ag NEGATIVE (NEGATIVE) Influenza Type B Ag POSITIVE A (NEGATIVE) RSV (PCR) NEGATIVE (NEGATIVE) SARS-CoV-2 (PCR) NEGATIVE (NEGATIVE) Group A Strep Antibody NOT DETECTED (NEGATIVE) 11/03/23 Range/Units 17:00 WBC 14.6 H (4.0-10.5) x10^3/uL RBC 4.64 (4.1-5.4) x10^6/uL Hgb 14.2 (12.0-16.0) g/dL Hct 42.4 (35-47) % MCV 91.4 (78-100) fL MCH 30.6 (26-32) pg MCHC 33.5 (32-36) g/dL RDW 12.3 (11.5-14.0) % Plt Count 149 L (150-450) x10^3/uL MPV 11.1 H (7.5-11.0) fL Gran % 76.2 H (36.0-66.0) % Immature Gran % (Auto) 0.5 H (0.00-0.4) % Nucleat RBC Rel Count 0.0 (0.00-0.1) % Eos # (Auto) 0 (0-0.5) x10^3/uL Immature Gran # (Auto) 0.07 H (0.00-0.03) x10^3u/L Absolute Lymphs (auto) 2.28 (1.0-4.6) x10^3/uL Absolute Monos (auto) 1.11 (0.0-1.3) x10^3/uL Absolute Nucleated RBC 0.00 (0.00-0.01) x10^3u/L Lymphocytes % 15.6 L (24.0-44.0) % Monocytes % 7.6 (0.0-12.0) % Eosinophils % 0.0 (0.00-5.0) % Basophils % 0.1 (0.0-0.4) % Absolute Granulocytes 11.10 H (1.4-6.9) x10^3/uL Basophils # 0.02 (0-0.4) x10^3/uL Sodium (137-145) mmol/L Potassium (3.5-5.1) mmol/L Chloride (98-107) mmol/L Carbon Dioxide (22-30) mmol/L Anion Gap (5-15) MEQ/L BUN (7-17) mg/dL Creatinine (0.52-1.04) mg/dL Estimated GFR ML/MIN Glucose (74-106) mg/dL Calcium (8.4-10.2) mg/dL Total Bilirubin (0.2-1.3) mg/dL AST (14-36) U/L ALT (0-35) U/L Alkaline Phosphatase (38-126) U/L Serum Total Protein (6.3-8.2) g/dL Albumin (3.5-5.0) g/dL Influenza Type A Ag (NEGATIVE) Influenza Type B Ag (NEGATIVE) RSV (PCR) (NEGATIVE) SARS-CoV-2 (PCR) (NEGATIVE) Group A Strep Antibody (NEGATIVE) - Progress Progress: improved Counseled pt/family regarding: lab results, diagnosis Medical Desision Making - Diagnostic Testing Diagnostic test were ordered, analyzed, and reviewed by me: Yes Radiological Interpretation: Interpreted by me - Departure Departure Disposition: Home Clinical Impression: Influenza B, Vomiting Condition: Stable Critical Care Time: No Referrals: SAMUEL SOLORIO NP [Primary Care Provider] - Follow up/PCP as directed Instructions: Flu, Adult (DC), Nausea and Vomiting, Adult (DC) Additional Instructions: Start clear liquids for the next 12 hours, then a soft bland diet. No milk or juice for the next 2 days. Forms: Work/School Release Form Prescriptions: Ondansetron ODT 4 MG [Zofran Odt 4 mg] 4 mg PO Q6H PRN PRN #10 tablet PRN Reason: Nausea
[2023-11-03 17:21] LABS: BASOPHIL % 0.1 % (0.0-0.4); Basophil (Absolute #) 0.02 x10^3/uL (0-0.4); Eosinophil (Absolute #) 0 x10^3/uL (0-0.5); Hematocrit 42.4 % (35-47); Hemoglobin 14.2 g/dL (12.0-16.0); IMMATURE GRAN # 0.07 x10^3u/L (0.00-0.03); IMMATURE GRAN % 0.5 % (0.00-0.4); Lymphocyte (Absolute #) 2.28 x10^3/uL (1.0-4.6); Lymphocytes % 15.6 % (24.0-44.0); Mean Cell Volume 91.4 fL (78-100); Mean Corpuscular Hemoglobin 30.6 pg (26-32); Mean Corpuscular Hgb Concent. 33.5 g/dL (32-36); Mean Platelet Volume 11.1 fL (7.5-11.0); Monocyte (Absolute #) 1.11 x10^3/uL (0.0-1.3); Monocytes % 7.6 % (0.0-12.0); Neutrophil % 76.2 % (36.0-66.0); Platelet Count 149 x10^3/uL (150-450); Red Blood Count 4.64 x10^6/uL (4.1-5.4); Red Cell Distribution Width 12.3 % (11.5-14.0); White Blood Count 14.6 x10^3/uL (4.0-10.5)
[2023-11-03 17:35] LABS: ALBUMIN 4.6 g/dL (3.5-5.0); ANION GAP 11.7 MEQ/L (5-15); BILIRUBIN,TOTAL 0.7 mg/dL (0.2-1.3); Calcium 9.4 mg/dL (8.4-10.2); Creatinine 1 0.59 mg/dL (0.52-1.04); EST GLOMERULAR FILTRATION RATE 128.2 ML/MIN; Potassium 3.1 mmol/L (3.5-5.1); Total Protein 7.7 g/dL (6.3-8.2)
[2023-11-03 17:58] LABS: INFLUENZA A NEGATIVE (NEGATIVE); RESPIRATORY SYNCTIAL VIRUS NEGATIVE (NEGATIVE); SARS-CoV-2 Xpert Express NEGATIVE (NEGATIVE)
[2023-11-03 18:00] LABS: INFLUENZA B POSITIVE (NEGATIVE)
[2023-11-03 18:14] VITALS: O2SAT 97
[2023-11-03 18:16] VITALS: BP 104/55; PULSE 83
[2023-11-03] MEDS ORDERED: K-LYTE ONE (18:17)
[2023-11-03] MEDS: K-LYTE PO ONE (18:21)
== END 2023-11-03 18:30 | disposition home or self-care (01) ==
LOC: ED 15:38
DX: J10.1 Influenza due to other identified influenza virus with other respiratory manifestations (principal); R11.2 Nausea with vomiting, unspecified; R05.1 Acute cough; M79.10 Myalgia, unspecified site; Z79.899 Other long term (current) drug therapy; Z28.310 Unvaccinated for COVID-19
CPT/HCPCS: 0241U; 36000; 36415; 80053; 85025; 87651; 99283; A9270-GY

== ENCOUNTER 2024-05-05 03:55 | Emergency (ER) | payer OTHER ==
[2024-05-05 04:15] VITALS: RESP 18; TEMP 98; O2SAT 98
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
--- NOTE | 2024-05-05 05:28 | XRAY ---
CLINICAL HISTORY: fall COMPARISON: No previous studies are available for comparison. TECHNIQUE: CT scan of the cervical spine was performed without contrast injection. Contiguous axial images were obtained from the skull base to the upper thoracic spine. Coronal and sagittal reformatted images were also reviewed. One of the following dose-reduction techniques was utilized for this exam. Automated exposure control, adjustment of the mA and/or kV according to patient size, and use of iterative reconstruction CTDI = 20 mGy, DLP = 468.33 mGy-cm. FINDINGS: Vertebrae: The vertebral bodies are normal in height and alignment. No evidence of acute fracture or dislocation. The cortical and trabecular bone patterns are normal. No signs of lytic or sclerotic lesions. Normal configuration of the posterior elements. Intervertebral Discs: The intervertebral disc spaces are preserved. C3-C4: there is posterior central disc protrusion indents the ventral CSF space, no foraminal stenosis, intact opposing spinal canal C5-C6: there is posterior central disc protrusion indents the ventral CSF space, no foraminal stenosis, intact opposing spinal canal No evidence of significant disc bulging or herniation. No calcifications or ossifications noted within the discs. Facet Joints: The facet joints are normal without evidence of dislocation, subluxation, or significant degenerative changes. Spinal Canal: The spinal canal is normal in caliber. No evidence of spinal canal stenosis. The cervical spinal cord is normal in size and signal without evidence of compression or intrinsic abnormality. Neural Foramina: The neural foramina are patent bilaterally at all levels. No evidence of foraminal narrowing or nerve root compression. Prevertebral Soft Tissues: The prevertebral soft tissues are normal in thickness without evidence of mass or abnormal fluid collection. The thyroid gland is normal in size and enhancement. IMPRESSION: 1. Normal CT scan of the cervical spine. 2. C3-4 and C4-5 small posterior central disc protrusions. 3. No evidence of acute fracture, dislocation, or significant degenerative changes. Electronically Signed by: Jenaro Rosario MD. (05/05/2024 05:23:26 EDT)
--- NOTE | 2024-05-05 05:30 | XRAY ---
CLINICAL HISTORY: fall COMPARISON: No prior study for comparison. TECHNIQUE: Axial non-contrast CT scan of the brain was performed from the skull base to the high parietal region. One of the following dose reduction techniques was utilized for this exam: Automated exposure control, adjustment of the mA and/or kV according to patient size, and use of iterative reconstruction. CTDI:53.9 mGy , DLP: 1031.40 mGy-cm. FINDINGS: Brain Parenchyma: Normal attenuation of the cerebral hemispheres, cerebellum, and brainstem. No evidence of acute infarct, hemorrhage, or mass effect. No abnormal areas of hypo- or hyperattenuation. Ventricular System: Ventricles are normal in size and configuration. No evidence of hydrocephalus or ventricular enlargement. Subarachnoid Spaces: Normal sulci and cisterns. No evidence of subarachnoid hemorrhage or extra-axial fluid collections. Cerebellum and Brainstem: Normal size and signal. No masses, lesions, or areas of abnormal signal. Orbits: Normal appearance of the globes, optic nerves, and extraocular muscles. No evidence of orbital masses or abnormal density. Sinuses: Clear paranasal sinuses. No evidence of sinusitis or mucosal thickening. Mastoid Air Cells: Clear mastoid air cells. No evidence of mastoiditis. Skull and Meninges: Normal skull morphology. No evidence of meningeal thickening. IMPRESSION: 1. Normal CT of the head without contrast. 2. No acute fracture line or hematoma formation was appreciated. Electronically Signed by: Jenaro Rosario MD. (05/05/2024 05:26:24 EDT)
[2024-05-05 05:49] VITALS: BP 111/73; PULSE 79
== END 2024-05-05 05:55 | disposition home or self-care (01) ==
LOC: ED 03:55
DX: S01.01XA Laceration without foreign body of scalp, initial encounter (principal); S00.83XA Contusion of other part of head, initial encounter; Y04.0XXA Assault by unarmed brawl or fight, initial encounter; Y92.59 Other trade areas as the place of occurrence of the external cause; R51.9 Headache, unspecified; Z79.899 Other long term (current) drug therapy
CPT/HCPCS: 12001; 70450; 72125; 99283

== ENCOUNTER 2024-12-04 17:15 | Emergency (ER) | payer OTHER ==
[2024-12-04 17:28] VITALS: TEMP 98.4
--- NOTE | 2024-12-04 18:10 | ERPHSYRPT ---
- History of Present Illness Time Seen by Provider: 12/04/24 17:21 Source: patient Exam Limitations: no limitations Patient Subjective Stated Complaint: C/O SOB that started less than an hour ago while at rest watching T.V. Reports palpitations as well. Triage Nursing Assessment: Patient ambulated back to ER without difficulties. She is alert and oriented. No SOB. Skin tone normal. KRAUS WNL. No edema. Physician History: 24-year-old female history of anxiety, depression, panic disorder presents for emergency department for evaluation of shortness of breath. Patient states she was at home watching TV. Patient developed heart palpitations and shortness of breath. Upon arrival to our ED his symptoms had improved. Vitals have been normal here including her heart rate respiratory rate and oxygenation. Patient states she vapes. No trauma. No fever. No nausea vomiting diaphoresis. No rash. Patient appears to be resting comfortably at this time. No active pain. She voices no other complaints or concerns at this time. Portions of this note were created with voice recognition technology. There may be grammatical, spelling, punctuation or sound alike errors Timing/Duration: today Severity: mild Modifying Factors: Improves With: nothing Associated Symptoms: denies symptoms Allergies/Adverse Reactions: paroxetine [From Paxil] Allergy (Severe, Verified 12/04/24 17:21) "extreme anger" cephalexin monohydrate [From Keflex] Allergy (Intermediate, Verified 12/04/24 17:21) Hives guaifenesin [From Mucinex] Allergy (Intermediate, Verified 12/04/24 17:21) Hives lisdexamfetamine [From Vyvanse] Adverse Reaction (Unknown, Verified 12/04/24 17:21) "irritability and constantly clearing throat until it would swell" methylphenidate [From Concerta] Adverse Reaction (Unknown, Verified 12/04/24 17:21) "irritability and constantly clearing throat until it would swell" Home Medications: Metoprolol Tartrate 25 mg [Lopressor 25MG Tab] 25 mg PO DAILY 11/03/23 [History] Hx Tetanus, Diphtheria Vaccination/Date Given: Yes Hx Influenza Vaccination/Date Given: No Hx Pneumococcal Vaccination/Date Given: No Immunizations Up to Date: Yes Travel Risk - International Travel Have you traveled outside of the country in past 3 weeks: No - Emerging Infectious Disease Are you exhibiting symptoms associated with any current EIDs: Yes Symptoms: Cough: New Onset, Shortness of Breath - Review of Systems Constitutional: No Symptoms, No Fever, No Chills Eyes: No Symptoms Ears, Nose, & Throat: No Symptoms Respiratory: No Symptoms, No Cough, No Dyspnea Cardiac: No Symptoms, No Chest Pain, No Edema, No Syncope Abdominal/Gastrointestinal: No Symptoms, No Abdominal Pain, No Nausea, No Vomiting, No Diarrhea Genitourinary Symptoms: No Symptoms, No Dysuria Musculoskeletal: No Symptoms, No Back Pain, No Neck Pain Skin: No Symptoms, No Rash Neurological: No Symptoms, No Dizziness, No Focal Weakness, No Sensory Changes Psychological: No Symptoms Endocrine: No Symptoms Hematologic/Lymphatic: No Symptoms Immunological/Allergic: No Symptoms All Other Systems: Reviewed and Negative - Past Medical History Pertinent Past Medical History: Yes Neurological History: Other ENT History: No Pertinent History Cardiac History: Other Respiratory History: No Pertinent History Endocrine Medical History: No Pertinent History Musculoskeletal History: No Pertinent History GI Medical History: No Pertinent History History: No Pertinent History Psycho-Social History: Anxiety, Depression, Panic Disorder Female Reproductive Disorders: No Pertinent History Other Medical History: [facility], 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 - Past Surgical History Past Surgical History: No Neuro Surgical History: No Pertinent History Cardiac: No Pertinent History Respiratory: No Pertinent History Gastrointestinal: No Pertinent History Genitourinary: No Pertinent History Musculoskeletal: No Pertinent History Female Surgical History: No Pertinent History Significant Family History: no pertinent family hx - Female History Hx Last Menstrual Period: Just ended Hx Now: No - Social History Smoking Status: Never smoker Exposure to second hand smoke: No Drug Use: marijuana - Social Determinants of Health Will the patient participate in the screening: Yes Do you worry about a steady place to live?: No Do you have any problems with any of the following?: No known problems In the past 12 months,have you had to go without utilities?: No Transportation Issues: No Has anyone in your support network made you feel unsafe?: No Have you or anyone in your house had to go w/o enough food: No - Nursing Vital Signs Nursing Vital Signs: Initial Vital Signs Pulse Rate 90 12/04/24 17:15 Respiratory Rate 17 12/04/24 17:15 Blood Pressure 131/68 12/04/24 17:15 O2 Sat by Pulse Oximetry 100 12/04/24 17:15 Pain Scale Pain Intensity 2 - Physical Exam General Appearance: no apparent distress, alert Eye Exam: PERRL/EOMI, eyes nml inspection Ears, Nose, Throat Exam: normal ENT inspection, TMs normal, pharynx normal, moist mucous membranes Neck Exam: normal inspection, non-tender, supple, full range of motion Respiratory Exam: normal breath sounds, lungs clear, airway intact, No respiratory distress Cardiovascular Exam: regular rate/rhythm, normal heart sounds, normal peripheral pulses Gastrointestinal/Abdomen Exam: soft, normal bowel sounds, No tenderness, No mass Back Exam: normal inspection, normal range of motion, No CVA tenderness, No vert ebral tenderness Extremity Exam: normal inspection, normal range of motion, pelvis stable Neurologic Exam: alert, oriented x 3, cooperative, normal mood/affect, sensation nml, No motor deficits Skin Exam: normal color, warm, dry, No rash Lymphatic Exam: No adenopathy SpO2 Interpretation: normal SpO2: 98 O2 Delivery: Room Air - Course Nursing assessment & vital signs reviewed: Yes EKG Interpreted by Me: RATE (87), Sinus Rhythm, NORMAL AXIS, prolonged QT interval (Borderline prolonged QT), NORMAL QRS Ordered Tests: Active Orders 24 hr Category Date Time Status Corporate Officer STAT Care 12/04/24 18:06 Active IV Insertion STAT Care 12/04/24 18:06 Active Pulse Oximetry (ED) STAT Care 12/04/24 18:06 Active CHEST 1 VIEW (PORTABLE) Stat Exams 12/04/24 18:57 Taken CBC W DIFF Stat Lab 12/04/24 18:27 Completed CMP Stat Lab 12/04/24 18:27 Completed D-DIMER QUANTITATIVE Stat Lab 12/04/24 18:27 Completed HCG QUALITATIVE, URINE Stat Lab 12/04/24 18:27 Completed MAGNESIUM Stat Lab 12/04/24 18:27 Completed TROPONIN Q4H Lab 12/04/24 18:27 Completed TROPONIN Q4H Lab 12/04/24 22:15 Ordered TROPONIN Q4H Lab 12/05/24 02:15 Ordered UA W/RFX UR CULTURE Stat Lab 12/04/24 18:27 Completed Urine Triage Profile Stat Lab 12/04/24 18:27 Completed Lab/Rad Data: Laboratory Result Diagrams 12/04/24 18:27 12/04/24 18:27 Laboratory Results 12/04/24 12/04/24 12/04/24 Range/Units 18:27 18:27 18:27 WBC (3.98-10.04) x10^3/uL RBC (3.93-5.22) x10^6/uL Hgb (11.2-15.7) g/dL Hct (34.1-44.9) % MCV (79.4-94.8) fL MCH (25.6-32.2) pg MCHC (32.2-35.5) g/dL RDW (11.7-14.4) % Plt Count (182-369) x10^3/uL MPV (9.4-12.3) fL Gran % (34.0-71.1) % Immature Gran % (Auto) (0.001-0.429) % Nucleat RBC Rel Count (0.00-0.2) % Eos # (Auto) (0.04-0.36) x10^3/uL Immature Gran # (Auto) (0.001-0.031) x10^3u/L Absolute Lymphs (auto) (1.18-3.74) x10^3/uL Absolute Monos (auto) (0.24-0.86) x10^3/uL Absolute Nucleated RBC (0.00-0.012) x10^3u/L Lymphocytes % (19.3-51.7) % Monocytes % (4.7-12.5) % Eosinophils % (0.7-5.8) % Basophils % (0.1-1.2) % Absolute Granulocytes (1.56-6.13) x10^3/uL Basophils # (0.01-0.08) x10^3/uL D-Dimer 0.20 (0.0-0.50) mg/L Sodium (135-145) mmol/L Potassium (3.5-5.1) mmol/L Chloride (98-107) mmol/L Carbon Dioxide (22-30) mmol/L Anion Gap (5-15) MEQ/L BUN (7-17) mg/dL Creatinine (0.52-1.04) mg/dL Estimated GFR ML/MIN Glucose (74-106) mg/dL Calcium (8.4-10.2) mg/dL Magnesium (1.6-2.3) mg/dL Total Bilirubin (0.2-1.3) mg/dL AST (14-36) U/L ALT (0-35) U/L Alkaline Phosphatase (38-126) U/L Troponin I < 0.012 (0.000-0.033) ng/mL Serum Total Protein (6.3-8.2) g/dL Albumin (3.5-5.0) g/dL Urine Color (Yellow) Urine Appearance (Clear) Urine pH (4.6-8.0) Ur Specific Alden (1.005-1.030) Urine Protein (Negative) Urine Glucose (UA) (Negative) mg/dL Urine Ketones (Negative) Urine Blood (Negative) Urine Nitrite (Negative) Urine Bilirubin (Negative) Urine Urobilinogen (0.2) mg/dL Ur Leukocyte Esterase (Negative) U Hyaline Cast (Auto) (0-2) /LPF Urine Microscopic RBC (0-5) /HPF Urine Microscopic WBC (0-5) /HPF Ur Epithelial Cells (None Seen) /HPF Urine Bacteria (None Seen) /HPF Urine Culture Reflexed (NO) Urine HCG, Qual NEGATIVE (NEGATIVE) Urine Opiates Level (NEGATIVE) Ur Methadone (NEGATIVE) Urine Barbiturates (NEGATIVE) Ur Phencyclidine (PCP) (NEGATIVE) Urine Amphetamine (NEGATIVE) U Benzodiazepine Level (NEGATIVE) Urine Cocaine (NEGATIVE) Urine Marijuana (THC) (NEGATIVE) 12/04/24 12/04/24 12/04/24 Range/Units 18:27 18:27 18:27 WBC 6.5 (3.98-10.04) x10^3/uL RBC 4.18 (3.93-5.22) x10^6/uL Hgb 13.1 (11.2-15.7) g/dL Hct 39.3 (34.1-44.9) % MCV 94.0 (79.4-94.8) fL MCH 31.3 (25.6-32.2) pg MCHC 33.3 (32.2-35.5) g/dL RDW 12.0 (11.7-14.4) % Plt Count 230 (182-369) x10^3/uL MPV 9.8 (9.4-12.3) fL Gran % 59.7 (34.0-71.1) % Immature Gran % (Auto) 0.2 (0.001-0.429) % Nucleat RBC Rel Count 0.0 (0.00-0.2) % Eos # (Auto) 0.10 (0.04-0.36) x10^3/uL Immature Gran # (Auto) 0.01 (0.001-0.031) x10^3u/L Absolute Lymphs (auto) 2.00 (1.18-3.74) x10^3/uL Absolute Monos (auto) 0.48 (0.24-0.86) x10^3/uL Absolute Nucleated RBC 0.00 (0.00-0.012) x10^3u/L Lymphocytes % 30.7 (19.3-51.7) % Monocytes % 7.4 (4.7-12.5) % Eosinophils % 1.5 (0.7-5.8) % Basophils % 0.5 (0.1-1.2) % Absolute Granulocytes 3.89 (1.56-6.13) x10^3/uL Basophils # 0.03 (0.01-0.08) x10^3/uL D-Dimer (0.0-0.50) mg/L Sodium 142 (135-145) mmol/L Potassium 3.8 (3.5-5.1) mmol/L Chloride 107 (98-107) mmol/L Carbon Dioxide 25 (22-30) mmol/L Anion Gap 13.9 (5-15) MEQ/L BUN 14 (7-17) mg/dL Creatinine 0.75 (0.52-1.04) mg/dL Estimated GFR 112.5 ML/MIN Glucose 85 (74-106) mg/dL Calcium 8.9 (8.4-10.2) mg/dL Magnesium 1.8 (1.6-2.3) mg/dL Total Bilirubin 0.40 (0.2-1.3) mg/dL AST 31 (14-36) U/L ALT 24 (0-35) U/L Alkaline Phosphatase 54 (38-126) U/L Troponin I (0.000-0.033) ng/mL Serum Total Protein 7.0 (6.3-8.2) g/dL Albumin 4.5 (3.5-5.0) g/dL Urine Color (Yellow) Urine Appearance (Clear) Urine pH (4.6-8.0) Ur Specific Alden (1.005-1.030) Urine Protein (Negative) Urine Glucose (UA) (Negative) mg/dL Urine Ketones (Negative) Urine Blood (Negative) Urine Nitrite (Negative) Urine Bilirubin (Negative) Urine Urobilinogen (0.2) mg/dL Ur Leukocyte Esterase (Negative) U Hyaline Cast (Auto) (0-2) /LPF Urine Microscopic RBC (0-5) /HPF Urine Microscopic WBC (0-5) /HPF Ur Epithelial Cells (None Seen) /HPF Urine Bacteria (None Seen) /HPF Urine Culture Reflexed (NO) Urine HCG, Qual (NEGATIVE) Urine Opiates Level NEGATIVE (NEGATIVE) Ur Methadone NEGATIVE (NEGATIVE) Urine Barbiturates NEGATIVE (NEGATIVE) Ur Phencyclidine (PCP) NEGATIVE (NEGATIVE) Urine Amphetamine POSITIVE A (NEGATIVE) U Benzodiazepine Level NEGATIVE (NEGATIVE) Urine Cocaine NEGATIVE (NEGATIVE) Urine Marijuana (THC) POSITIVE A (NEGATIVE) 12/04/24 Range/Units 18:27 WBC (3.98-10.04) x10^3/uL RBC (3.93-5.22) x10^6/uL Hgb (11.2-15.7) g/dL Hct (34.1-44.9) % MCV (79.4-94.8) fL MCH (25.6-32.2) pg MCHC (32.2-35.5) g/dL RDW (11.7-14.4) % Plt Count (182-369) x10^3/uL MPV (9.4-12.3) fL Gran % (34.0-71.1) % Immature Gran % (Auto) (0.001-0.429) % Nucleat RBC Rel Count (0.00-0.2) % Eos # (Auto) (0.04-0.36) x10^3/uL Immature Gran # (Auto) (0.001-0.031) x10^3u/L Absolute Lymphs (auto) (1.18-3.74) x10^3/uL Absolute Monos (auto) (0.24-0.86) x10^3/uL Absolute Nucleated RBC (0.00-0.012) x10^3u/L Lymphocytes % (19.3-51.7) % Monocytes % (4.7-12.5) % Eosinophils % (0.7-5.8) % Basophils % (0.1-1.2) % Absolute Granulocytes (1.56-6.13) x10^3/uL Basophils # (0.01-0.08) x10^3/uL D-Dimer (0.0-0.50) mg/L Sodium (135-145) mmol/L Potassium (3.5-5.1) mmol/L Chloride (98-107) mmol/L Carbon Dioxide (22-30) mmol/L Anion Gap (5-15) MEQ/L BUN (7-17) mg/dL Creatinine (0.52-1.04) mg/dL Estimated GFR ML/MIN Glucose (74-106) mg/dL Calcium (8.4-10.2) mg/dL Magnesium (1.6-2.3) mg/dL Total Bilirubin (0.2-1.3) mg/dL AST (14-36) U/L ALT (0-35) U/L Alkaline Phosphatase (38-126) U/L Troponin I (0.000-0.033) ng/mL Serum Total Protein (6.3-8.2) g/dL Albumin (3.5-5.0) g/dL Urine Color Yellow (Yellow) Urine Appearance Clear (Clear) Urine pH 6.0 (4.6-8.0) Ur Specific Alden 1.010 (1.005-1.030) Urine Protein Negative (Negative) Urine Glucose (UA) Negative (Negative) mg/dL Urine Ketones Negative (Negative) Urine Blood Small A (Negative) Urine Nitrite Negative (Negative) Urine Bilirubin Negative (Negative) Urine Urobilinogen 0.2 (0.2) mg/dL Ur Leukocyte Esterase Negative (Negative) U Hyaline Cast (Auto) NONE SEEN (0-2) /LPF Urine Microscopic RBC 3-5 (0-5) /HPF Urine Microscopic WBC 0-2 (0-5) /HPF Ur Epithelial Cells None Seen (None Seen) /HPF Urine Bacteria None Seen (None Seen) /HPF Urine Culture Reflexed NO (NO) Urine HCG, Qual (NEGATIVE) Urine Opiates Level (NEGATIVE) Ur Methadone (NEGATIVE) Urine Barbiturates (NEGATIVE) Ur Phencyclidine (PCP) (NEGATIVE) Urine Amphetamine (NEGATIVE) U Benzodiazepine Level (NEGATIVE) Urine Cocaine (NEGATIVE) Urine Marijuana (THC) (NEGATIVE) - Progress Progress: improved Progress Note: 24-year-old female presents to our ED for evaluation of shortness of breath. No chest pain. Physical exam nonremarkable. Lungs clear. Patient in no distress. No active pain. D-dimer negative. Troponin negative. Laboratory workup unremarkable. Chest x-ray negative. Vitals within normal limits. Ambulatory pulse oximetry normal. Patient remains asymptomatic during her 3- hour observation/management time in our ED. No indication for further workup at this time. Will discharge home. Patient agrees to follow-up with a primary care doctor within 48 hours for reevaluation. Patient urine positive for amphetamine and marijuana. Patient reports she is on Adderall. 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 Portions of this note were created with voice recognition technology. There may be grammatical, spelling, punctuation or sound alike errors Complexity of problem addressed is moderate acute complicated. No critical care time. Complex of data reviewed and analyzed is moderate. Test ordered chest reviewed results analyzed and correlated clinically with history and physical exam. Risk of complication and or risk of morbidity/mortality of patient management is low. Vital stable. Time spent to discharge patient is appro ximately 15 minutes. Plan of care established for shared decision making. No social determinants of health present to impede follow-up. Portions of this note were created with voice recognition technology. There may be grammatical, spelling, punctuation or sound alike errors 12/04/24 20:13 Counseled pt/family regarding: lab results, diagnosis, need for follow-up, rad results - Departure Departure Disposition: Home Clinical Impression: SOB (shortness of breath) Condition: Stable Critical Care Time: No Referrals: SAMUEL SOLORIO NP [Primary Care Provider] - Follow up/PCP as directed Instructions: Shortness of breath Additional Instructions: Discharge/Care Plan ADAM VILLALOBOS was seen on 12/04/24 in the Emergency Room. The patient was counseled regarding Diagnosis,Lab results, Imaging studies, need for follow up and when to return to the Emergency Room. Prescriptions given: Discharge Note I have spoken with the patient and/or caregivers. I have explained the patient's condition, diagnosis and treatment plan based on the information available to me at this time. I have answered the patient's and/or caregiver's questions and addressed any concerns. The patient and/or caregivers have as good understanding of the patient's diagnosis, condition and treatment plan as can be expected at this point. The vital signs have been stable. The patient's condition is stable and appropriate for discharge from the emergency department. The patient will pursue further outpatient evaluation with the primary care physician or other designated or consulting physician as outlined in the discharge instructions. The patient and/or caregivers are agreeable to this plan of care and follow-up instructions have been explained in detail. The patient and/or caregivers have received these instruction. The patient/and or caregivers are aware that any significant change in condition or worsening of symptoms should prompt an immediate return to this or the closest emergency department or call 911.
[2024-12-04 18:29] LABS: Absolute Neutrophil Ct (ANC) 3.89 x10^3/uL (1.56-6.13); BASOPHIL % 0.5 % (0.1-1.2); Basophil (Absolute #) 0.03 x10^3/uL (0.01-0.08); Eosinophil % 1.5 % (0.7-5.8); Hematocrit 39.3 % (34.1-44.9); Hemoglobin 13.1 g/dL (11.2-15.7); IMMATURE GRAN # 0.01 x10^3u/L (0.001-0.031); IMMATURE GRAN % 0.2 % (0.001-0.429); Lymphocytes % 30.7 % (19.3-51.7); Mean Corpuscular Hemoglobin 31.3 pg (25.6-32.2); Mean Corpuscular Hgb Concent. 33.3 g/dL (32.2-35.5); Mean Platelet Volume 9.8 fL (9.4-12.3); Monocyte (Absolute #) 0.48 x10^3/uL (0.24-0.86); Monocytes % 7.4 % (4.7-12.5); Neutrophil % 59.7 % (34.0-71.1); Platelet Count 230 x10^3/uL (182-369); Red Blood Count 4.18 x10^6/uL (3.93-5.22); White Blood Count 6.5 x10^3/uL (3.98-10.04)
[2024-12-04 18:35] LABS: HCG URINE TEST NEGATIVE (NEGATIVE)
[2024-12-04 18:42] LABS: ALBUMIN 4.5 g/dL (3.5-5.0); ANION GAP 13.9 MEQ/L (5-15); BILIRUBIN,TOTAL 0.4 mg/dL (0.2-1.3); Calcium 8.9 mg/dL (8.4-10.2); Creatinine 1 0.75 mg/dL (0.52-1.04); EST GLOMERULAR FILTRATION RATE 112.5 ML/MIN; MAGNESIUM 1.8 mg/dL (1.6-2.3); Potassium 3.8 mmol/L (3.5-5.1)
[2024-12-04 18:44] LABS: Appearance Clear (Clear); Bacteria None Seen /HPF (None Seen); Bilirubin Negative (Negative); Blood Small (Negative); Epithelial Cells None Seen /HPF (None Seen); Glucose, Urine Negative (Negative); Hyaline Casts NONE SEEN /LPF (0-2); Ketones Negative (Negative); Leukocyte Esterase Negative (Negative); Nitrite Negative (Negative); Protein,Urine Dip Negative (Negative); Urobilinogen 0.2 mg/dL (0.2); WBC 0-2 /HPF (0-5)
[2024-12-04 18:49] LABS: Amphetamine,Urine POSITIVE (NEGATIVE); Barbiturate,Urine NEGATIVE (NEGATIVE); Benzodiazepine,Urine NEGATIVE (NEGATIVE); Cocaine,Urine NEGATIVE (NEGATIVE); Methadone,Urine NEGATIVE (NEGATIVE); Opiate,Urine NEGATIVE (NEGATIVE); PCP,Urine NEGATIVE (NEGATIVE); THC,Urine POSITIVE (NEGATIVE)
[2024-12-04 20:11] VITALS: BP 97/58; PULSE 74; RESP 18
[2024-12-04 20:14] VITALS: O2SAT 98
--- NOTE | 2024-12-05 08:37 | XRAY ---
Indication: Short of breath. Comparison: March 22, 2023 Portable chest again demonstrates normal heart, lungs, and bony thorax.
== END 2024-12-04 20:22 | disposition home or self-care (01) ==
LOC: ED 17:15
DX: R06.02 Shortness of breath (principal); Z79.899 Other long term (current) drug therapy
CPT/HCPCS: 36415; 71045; 80053; 80307; 81001; 81025; 83735; 84484; 85025; 85379; 93041; 94760; 99284; 99285